=== PATIENT | female | born 1965 | race Caucasian/White ===

== ENCOUNTER 2019-09-22 22:00 | Emergency (ER) | payer BC, SELFPAY ==
[2019-09-22 22:25] VITALS: BP 133/73; PULSE 74; RESP 18; O2SAT 93; BMI 23.8
--- NOTE | 2019-09-22 22:33 | W.ED.GENADLT ---
HPI - General Adult General: Chief complaint: General Medical Stated complaint: nose bleed Time Seen by Provider: 09/22/19 22:22 History of Present Illness: HPI narrative: Patient's left naris bled x3 hours today. Nosebleed stopped about 30 minutes ago. Patient would like her INR checked. It was high the day before yesterday at 5.9 she stopped her dose of Coumadin yesterday and took it this morning which was a 4 mg dose. MD complaint: Has had problems with her INR since she was diagnosed with pneumonia 3 we Onset (ago): hour(s) (3) Severity: mild Severity scale (1-10): 1 Associated symptoms: Reports no associated symptoms; Deny chest pain, dyspnea, headache(s), nausea, rash or vomiting Treatments prior to arrival: none Review of Systems Const: Denies: fever, chills or body aches Eyes: Denies: change in vision or blurry vision ENMT: Reports: nose bleeds (3 hours today); Denies: throat pain or nasal congestion Card: Denies: chest pain or shortness of breath on exertion Resp: Denies: shortness of breath, productive cough or non-productive cough GI: Denies: abdominal pain, nausea or vomiting Musc: Denies: extremity pain Skin/Breast: Denies: rash Neuro: Denies: headache Psych: Denies: anxiety or depression Bakari/Lymph: Denies: easy bruising PFSH ED PFSH: Medical History (Updated 08/09/19 @ 11:13 by Felicitas Benjamin DO) CAD (coronary artery disease) Chronic migraine without aura, intractable, with status migrainosus Chronic right hip pain 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 COPD (chronic obstructive pulmonary disease) CANDIS (generalized anxiety disorder) GERD (gastroesophageal reflux disease) Hypothyroidism Idiopathic insomnia Lupus cerebritis Moderate mitral regurgitation Osteopenia Renal artery stenosis in 1 of 2 vessels Renovascular hypertension Thrombocytopenia Vitamin D deficiency Social History (Updated 08/03/19 @ 14:00 by Luly Wong LPN) Smoking and tobacco status: former smoker Alcohol intake: never Marital status: Physical Exam Const: COMMON NORMALS: no apparent distress HENMT: NOSE: no nasal discharge (Left nares normal without any active bleeding) Course Vital Signs: Vital signs: Vital Signs Pulse Rate 74 09/22/19 22:25 Respiratory Rate 18 09/22/19 22:25 Blood Pressure 133/73 09/22/19 22:25 Pulse Oximetry 93 09/22/19 22:25 Discharge Plan Discharge Prescriptions: No Action levothyroxine 112 mcg capsule 112 mcg PO ONCE RF: 0 metoprolol tartrate 25 mg tablet 25 mg PO BID RF: 0 albuterol sulfate [Ventolin HFA] 90 mcg/actuation HFA aerosol inhaler 2 puff INHALATION Q6H PRN (Reason: Shortness Of Breath) RF: 0 warfarin 2 mg tablet 2 mg PO DAILY Qty: 30 RF: 3 warfarin 3 mg tablet 3 mg PO DAILY Qty: 30 RF: 3 warfarin 2 mg tablet 2 mg PO DIRECTED Qty: 30 RF: 3 warfarin 3 mg tablet 3 mg PO DIRECTED Qty: 30 RF: 3 Coding Level of Care Code ED Sustainability Project Manager for Iban Salazar
[2019-09-22 22:42] LABS: Basophils # 0.1 10^3/uL (0.0-0.1); Basophils % 0.4 %; Eosinophils # 0.4 10^3/uL (0.0-0.8); Eosinophils % 2.8 %; Hematocrit 32.8 % (37.0-47.0); Hemoglobin 10.3 g/dL (11.5-15.3); Lymphocytes # 2.8 10^3/uL (0.8-4.8); Lymphocytes % 20.4 %; Mean Corpuscular HGB Conc 31.4 g/dL (30.0-36.0); Mean Corpuscular Hemoglobin 26.4 pg (28.0-34.0); Mean Corpuscular Volume 84.1 fL (81-99); Mean Platelet Volume 10.7 fL (7.4-10.4); Monocytes # 1.1 10^3/uL (0.2-0.9); Monocytes % 8.1 %; Neutrophils # 8.8 10^3/uL (1.8-7.7); Neutrophils % 64.6 %; Nucleated Red Blood Cells % 0 %; Platelet Count 338 10^3/cmm (130-400); Red Cell Distribution Width 17.5 % (12.1-15.1); White Blood Count 13.7 10^3/uL (4.0-10.0)
[2019-09-22 22:51] LABS: INR 3.31 (0.8-1.2)
[2019-09-22 22:58] LABS: Anion Gap 16.8 (5-19); Blood Urea Nitrogen 18 mg/dL (6-20); Calcium 9.7 mg/dL (8.5-10.5); Carbon Dioxide 26 mmol/L (22-29); Chloride 99 mmol/L (98-107); Glucose 95 mg/dL (65-115); Osmolality Calculated 282 mOsm/kg (285-295); Potassium 3.8 mmol/L (3.5-5.1); Sodium 138 mmol/L (136-145)
[2019-09-22 23:15] VITALS: BP 113/74; PULSE 67; RESP 17; O2SAT 96
== END 2019-09-22 23:16 | disposition home or self-care (01) ==
PROVIDERS: Emergency Provider Nurse Practitioner Family; Family Provider Family Medicine; PCP Family Medicine
DX: R04.0 Epistaxis (principal); I25.10 Atherosclerotic heart disease of native coronary artery without angina pectoris; J44.9 Chronic obstructive pulmonary disease, unspecified; E03.9 Hypothyroidism, unspecified; Z79.01 Long term (current) use of anticoagulants; Z87.891 Personal history of nicotine dependence
CPT/HCPCS: 80048; 85025; 85610; 99281; 99282

== ENCOUNTER → 2019-09-29 13:47 | Outpatient (BNVA) | payer BC, SELFPAY | PROVIDERS: Family Provider Family Medicine; PCP Family Medicine; Visit Provider Nurse Practitioner Family | DX: J90 Pleural effusion, not elsewhere classified (principal); J44.9 Chronic obstructive pulmonary disease, unspecified; R09.89 Other specified symptoms and signs involving the circulatory and respiratory systems; Z79.01 Long term (current) use of anticoagulants | CPT/HCPCS: 71046; 85610 ==

== ENCOUNTER → 2019-11-30 13:19 | Outpatient (BNVA) | payer BC, SELFPAY | PROVIDERS: Family Provider Family Medicine; PCP Family Medicine; Visit Provider Family Medicine | DX: E03.9 Hypothyroidism, unspecified (principal); Z95.2 Presence of prosthetic heart valve | CPT/HCPCS: 84443; 85610 ==

== ENCOUNTER → 2019-12-13 15:19 | Outpatient (BNVA) | payer BC, SELFPAY | PROVIDERS: Family Provider Family Medicine; PCP Family Medicine; Visit Provider Internal Medicine Cardiovascular Disease | DX: Z95.2 Presence of prosthetic heart valve (principal) | CPT/HCPCS: 85610 ==

== ENCOUNTER → 2020-02-26 13:34 | Outpatient (BNVA) | payer BC, SELFPAY | PROVIDERS: Family Provider Family Medicine; PCP Family Medicine; Visit Provider Internal Medicine Cardiovascular Disease | DX: Z95.2 Presence of prosthetic heart valve (principal); E03.9 Hypothyroidism, unspecified | CPT/HCPCS: 84443; 85610 ==

== ENCOUNTER → 2020-03-04 09:07 | Outpatient (BNVA) | payer BC, SELFPAY | PROVIDERS: Family Provider Family Medicine; PCP Family Medicine; Visit Provider Internal Medicine Cardiovascular Disease | DX: Z00.00 Encounter for general adult medical examination without abnormal findings (principal); Z79.01 Long term (current) use of anticoagulants; Z95.2 Presence of prosthetic heart valve | CPT/HCPCS: 85610 ==

== ENCOUNTER → 2020-03-25 10:20 | Outpatient (BNVA) | payer BC, SELFPAY | PROVIDERS: Family Provider Family Medicine; PCP Family Medicine; Visit Provider Internal Medicine Cardiovascular Disease | DX: Z95.2 Presence of prosthetic heart valve (principal) | CPT/HCPCS: 85610 ==

== ENCOUNTER → 2020-04-08 13:52 | Outpatient (BNVA) | payer BC, SELFPAY | PROVIDERS: Family Provider Family Medicine; PCP Family Medicine; Visit Provider Internal Medicine Cardiovascular Disease | DX: Z95.2 Presence of prosthetic heart valve (principal) | CPT/HCPCS: 85610 ==

== ENCOUNTER → 2020-04-29 11:02 | Outpatient (BNVA) | payer BC, SELFPAY | PROVIDERS: Family Provider Family Medicine; PCP Family Medicine; Visit Provider Internal Medicine Cardiovascular Disease | DX: Z95.2 Presence of prosthetic heart valve (principal) | CPT/HCPCS: 85610 ==

== ENCOUNTER → 2020-05-07 12:08 | Outpatient (BNVA) | payer BC, SELFPAY | PROVIDERS: Family Provider Family Medicine; PCP Family Medicine; Visit Provider Internal Medicine Cardiovascular Disease | DX: R79.1 Abnormal coagulation profile (principal); Z95.2 Presence of prosthetic heart valve | CPT/HCPCS: 85610 ==

== ENCOUNTER → 2020-05-14 10:55 | Outpatient (BNVA) | payer BC, SELFPAY | PROVIDERS: Family Provider Family Medicine; PCP Family Medicine; Visit Provider Internal Medicine | DX: M32.9 Systemic lupus erythematosus, unspecified (principal); Z11.59 Encounter for screening for other viral diseases; Z11.1 Encounter for screening for respiratory tuberculosis; M25.50 Pain in unspecified joint; R53.83 Other fatigue; F48.8 Other specified nonpsychotic mental disorders | CPT/HCPCS: 36415; 80053; 81001; 82306; 82533; 82550; 82728; 82955; 85025; 85651; 86140; 86431; 86480; 86704; 86803; 87340; 99203; 99213 ==

== ENCOUNTER → 2020-05-21 14:31 | Outpatient (BNVA) | payer BC, SELFPAY | PROVIDERS: Family Provider Family Medicine; PCP Family Medicine; Visit Provider Internal Medicine Cardiovascular Disease | DX: Z95.2 Presence of prosthetic heart valve (principal) | CPT/HCPCS: 85610 ==

== ENCOUNTER → 2020-05-29 11:12 | Outpatient (BNVA) | payer BC, SELFPAY | PROVIDERS: Family Provider Family Medicine; PCP Family Medicine; Visit Provider Internal Medicine Cardiovascular Disease | DX: E03.9 Hypothyroidism, unspecified (principal); Z95.2 Presence of prosthetic heart valve | CPT/HCPCS: 84443; 85610 ==

== ENCOUNTER 2020-06-19 11:29 | Outpatient (CLI) | payer BC, SELFPAY ==
--- NOTE | 2020-06-19 11:44 | XR_ITS ---
WS: [id number] AP views both hips, 06/19/2020 Clinical Data: M25.50 - Pain in unspecified joint Comparison: None. Findings: No erosion sclerosis narrowing or cyst formation of the hips is seen. There are no fractures or dislo cations. The soft tissues are normal. The adjacent pelvis is unremarkable. XR/XR hip BI 2V wo/w pel [id number] Impression: Negative AP views of both hips.
== END 2020-06-19 11:30 | disposition home or self-care (01) ==
PROVIDERS: PCP Family Medicine; Visit Provider Internal Medicine
DX: M32.9 Systemic lupus erythematosus, unspecified; D86.9 Sarcoidosis, unspecified; M25.551 Pain in right hip; M25.552 Pain in left hip; R53.83 Other fatigue; Z79.899 Other long term (current) drug therapy; Z87.891 Personal history of nicotine dependence
CPT/HCPCS: 73521; 99213

== ENCOUNTER → 2020-08-20 13:23 | Outpatient (BNVA) | payer OTHER, SELFPAY | PROVIDERS: PCP Family Medicine; Visit Provider Internal Medicine Cardiovascular Disease | DX: Z95.2 Presence of prosthetic heart valve (principal) | CPT/HCPCS: 85610 ==

== ENCOUNTER 2020-10-02 12:53 | Outpatient (CLI) | payer OTHER, SELFPAY ==
--- NOTE | 2020-10-02 13:30 | US_ITS ---
WS: [id number] INDICATION: Ultrasound right groin. Hernia. TECHNIQUE: Ultrasound soft tissue area of concern. FINDINGS: Ultrasound soft tissue area of concern right groin. No visualized inguinal or femoral herni a visualized. No herniated bowel. A few prominent lymph nodes with preserved fatty hilum measuring up to 2 cm nonspecific but likely reactive. US/US soft tissue/extremity 95691 IMPRESSION: No evidence of femoral or inguinal hernia.
== END 2020-10-02 12:54 | disposition home or self-care (01) ==
LOC: US 12:56
PROVIDERS: PCP Family Medicine; Visit Provider Family Medicine
DX: K41.90 Unilateral femoral hernia, without obstruction or gangrene, not specified as recurrent (principal)
CPT/HCPCS: 76882

== ENCOUNTER → 2020-10-10 13:48 | Outpatient (BNVA) | payer OTHER, SELFPAY | PROVIDERS: PCP Family Medicine; Visit Provider Internal Medicine | DX: M32.9 Systemic lupus erythematosus, unspecified (principal); M25.50 Pain in unspecified joint; R53.83 Other fatigue; F48.8 Other specified nonpsychotic mental disorders; G47.00 Insomnia, unspecified; Z87.891 Personal history of nicotine dependence | CPT/HCPCS: 99214 ==

== ENCOUNTER 2020-10-14 12:35 | Outpatient (CLI) | payer OTHER, SELFPAY ==
[2020-10-14 13:10] LABS: Basophils # 0.1 10^3/uL (0.0-0.1); Basophils % 0.6 %; Eosinophils # 0.2 10^3/uL (0.0-0.8); Eosinophils % 2.7 %; Hematocrit 40.7 % (37.0-47.0); Hemoglobin 12.6 g/dL (11.5-15.3); Lymphocytes # 2.2 10^3/uL (0.8-4.8); Lymphocytes % 25.6 %; Mean Corpuscular Hemoglobin 27.3 pg (28.0-34.0); Mean Corpuscular Volume 88.3 fL (81-99); Mean Platelet Volume 10.2 fL (7.4-10.4); Monocytes # 0.6 10^3/uL (0.2-0.9); Monocytes % 6.5 %; Neutrophils # 5.45 10^3/uL (1.8-7.7); Neutrophils % 64.1 %; Nucleated Red Blood Cells % 0 %; Platelet Count 279 10^3/cmm (130-400); Red Blood Count 4.61 10^6/uL (4.1-5.3); Red Cell Distribution Width 16.2 % (12.1-15.1); White Blood Count 8.5 10^3/uL (4.0-10.0)
[2020-10-14 13:27] LABS: Alanine Aminotransferase 20 U/L (0-33); Albumin Level 3.8 g/dL (3.5-5.2); Alkaline Phosphatase 161 IU/L (35-105); Anion Gap 13.6 (5-19); Aspartate Amino Transferase 24 U/L (0-32); Blood Urea Nitrogen 16 mg/dL (6-20); C Reactive Protein 29.8 mg/L (0.0-4.9); Calcium 9.5 mg/dL (8.5-10.5); Carbon Dioxide 27 mmol/L (22-29); Chloride 103 mmol/L (98-107); Complement C3 178 mg/dL (90-180); Globulin 3.2 g/dL (1.3-4.6); Glucose 84 mg/dL (65-115); Osmolality Calculated 288 mOsm/kg (285-295); Potassium 4.6 mmol/L (3.5-5.1); Sodium 139 mmol/L (136-145); Total Bilirubin 0.2 mg/dL (0.15-1.2)
[2020-10-14 13:46] LABS: Urine Color Yellow (Yellow)
[2020-10-14 13:47] LABS: Add Urine Microscopic? YES; Bilirubin Urine Neg (Negative); Blood Urine Neg (Negative); Glucose Urine UA Norm (Normal); Ketones Urine Negative (Negative); Leukocyte Esterase Urine Trace (Negative); Nitrate Urine Negative (Negative); Protein Urine Neg (Negative); Urine Appearance Clear (CLEAR); Urobilinogen Urine Norm (Negative); pH Urine 5 (5-7)
[2020-10-14 13:48] LABS: Bacteria Urine 1+ /hpf; RBC Urine 0-4 /hpf (0-2); WBC Urine 15-25 /hpf (0-5)
[2020-10-14 13:49] LABS: Add Urine Culture? No
[2020-10-14 14:08] LABS: Erythrocyte Sedimentation Rate 37 mm/hr (0-15)
== END 2020-10-14 12:36 | disposition home or self-care (01) ==
PROVIDERS: PCP Family Medicine; Visit Provider Internal Medicine
DX: M32.9 Systemic lupus erythematosus, unspecified (principal)
CPT/HCPCS: 36415; 80053; 81001; 85025; 85651; 86140; 86160

== ENCOUNTER → 2020-10-16 13:36 | Outpatient (BNVA) | payer OTHER, SELFPAY | PROVIDERS: PCP Family Medicine; Visit Provider Family Medicine | DX: Z95.2 Presence of prosthetic heart valve (principal) | CPT/HCPCS: 85610 ==

== ENCOUNTER → 2020-10-21 14:14 | Outpatient (BNVA) | payer OTHER, SELFPAY | PROVIDERS: PCP Family Medicine; Visit Provider Family Medicine | DX: E03.9 Hypothyroidism, unspecified (principal); R59.9 Enlarged lymph nodes, unspecified; I10 Essential (primary) hypertension; Z95.2 Presence of prosthetic heart valve | CPT/HCPCS: 84443; 85610 ==

== ENCOUNTER → 2020-11-06 16:34 | Outpatient (BNVA) | payer SELFPAY | PROVIDERS: PCP Family Medicine; Visit Provider Internal Medicine Cardiovascular Disease | DX: Z95.2 Presence of prosthetic heart valve (principal) | CPT/HCPCS: 85610 ==

== ENCOUNTER 2020-11-20 10:05 | Outpatient (CLI) | payer OTHER, SELFPAY ==
--- NOTE | 2020-11-20 10:08 | MR_ITS ---
WS: [id number] MRI PELVIS WITHOUT CONTRAST. COMPARISON: CT 05/08/2015. History: RIGHT lower quadrant pain. Multiplanar, multisequence imaging is performed without contrast. No GI tract obstruction or inguinal canal hernia. Uterus is normal size. Both ovaries are identified and normal size. There is no free fluid in the pelvis. Nerve root sleeve diverticulum are identified in the sacrum. Largest extends into the RIGHT as to 3 foramen. Abnormal signal involving the RIGHT femoral head and neck. There is extensive marrow edema in the fem oral head and neck and changes of osteonecrosis without fragmentation. There is a moderate-sized join t effusion and there is also small amount of edema in the adjacent acetabulum. Focal area of avascular necrosis involving the superior LEFT femoral head. No joint effusion. No disl ocation. Less edema and no joint effusion on the LEFT. MR/MR pelvis wo con* [id number] IMPRESSION: 1. Bilateral femoral head osteonecrosis. 2. Significant marrow edema involving the RIGHT femoral head and neck with a m oderate-sized surrounding joint effusion. Marrow edema typically correlates wit h pain and risk of bone collapse. 3. No inguinal hernia. 4. Focal osteonecrosis at the LEFT femoral head with focal marrow edema and no joint effusion. 5. Septic RIGHT hip joint is not excluded but effusions are often seen with os teonecrosis.
== END 2020-11-20 10:06 | disposition home or self-care (01) ==
LOC: RADSHAW 10:06
PROVIDERS: PCP Family Medicine; Visit Provider Surgery
DX: R10.31 Right lower quadrant pain (principal); M87.88 Other osteonecrosis, other site; R60.0 Localized edema
CPT/HCPCS: 72195; 85610

== ENCOUNTER → 2020-12-02 12:07 | Outpatient (BNVA) | payer OTHER, SELFPAY | PROVIDERS: PCP Family Medicine; Referring Provider Surgery; Visit Provider Orthopaedic Surgery | DX: M87.059 Idiopathic aseptic necrosis of unspecified femur (principal) | CPT/HCPCS: 73502 ==

== ENCOUNTER → 2020-12-06 11:35 | Outpatient (BNVA) | payer OTHER, SELFPAY | PROVIDERS: PCP Family Medicine; Visit Provider Orthopaedic Surgery | DX: Z01.812 Encounter for preprocedural laboratory examination (principal); Z20.822 Contact with and (suspected) exposure to COVID-19 | CPT/HCPCS: 87635 ==

== ENCOUNTER 2020-12-12 05:49 | Day surgery (SDC) | payer OTHER, SELFPAY ==
[2020-12-12] VITALS (10 sets, daily range): BP systolic 132–174; BP diastolic 48–94; PULSE 56–64; RESP 12–18; TEMP 36.3–37.3; O2SAT 94–100; BMI 28.3
--- NOTE | 2020-12-12 | SCC_ITS ---
Procedure Done: Core decompression right hip. (Bill procedure as equivalent to percutaneous screw fixation of a femoral neck fracture.) 87.5 seconds of fluoroscopic guidance, for a cumulative dose of 12.33 mGy, was provided to Dr. Garcias by the radiology department. C-arm images of the RIGHT hip were saved for the patient's permanent record. [facility]
[2020-12-12] MEDS: sodium chloride 0.9% 1,000 ML 30 ML IV ×2 (06:20→06:28)
--- NOTE | 2020-12-12 06:30 | P.ANESASSM_ITS ---
Pre-Anesthetic Assessment Pre-Anesthetic Assessment: Height/Weight: Height 1.6 m Weight 72.575 kg Temp Pulse Resp BP Pulse Ox 97.4 F L 64 18 168/94 94 12/12/20 06:12 12/12/20 06:12 12/12/20 06:12 12/12/20 06:12 12/12/20 06:12 Preop Diagnosis: Avascular necrosis right hip Proposed Procedure: Operation Date: 12/12/20 07:00 Proposed Procedures p Core Decompression Hip 91074 M87.059(Right) - Ellis Garcias MD Was Beta Ana Lilia taken within 24 hours: Yes Was Clonidine taken within 24 hours: N/A Last intake: Intake Last Liquid Date 12/11/20 Last Liquid Time 19:00 Last Solid Date 12/11/20 Last Solid Time 19:00 Social: Social History: Tobacco (quit 07/28) and No alcohol Exam: Pre-Anes Outpt Exam: alert, oriented x 3 and regular rate & rhythm Additional Exam Findings (including area of procedure): rhonci Airway: Submandibular: WNL Cervical ROM: WNL MP: 2 Dentition: False Pulmonary: Pulmonary: COPD CV/HEM: CV/HEM: CAD and HTN Comments: Ao valve replaced Metabolic: Metabolic: Thyroid Neuropsych: Neuropsych: Anxiety Anesthetic Plan: ASA status: 3 Anesthesia: Choice Risk of > 500 ml blood loss (7ml/kg in children): No PFSH Anesthesia PFSH: Medical History CAD (coronary artery disease) Chronic migraine without aura, intractable, with status migrainosus Chronic right hip pain 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 COPD (chronic obstructive pulmonary disease) CANDIS (generalized anxiety disorder) GERD (gastroesophageal reflux disease) Hypertension Hypothyroidism Idiopathic insomnia Lupus cerebritis Moderate mitral regurgitation Osteopenia Renal artery stenosis in 1 of 2 vessels Renovascular hypertension Thrombocytopenia Vitamin D deficiency Surgical History History of bone marrow biopsy S/P aortic valve replacement S/P cataract extraction S/P thyroidectomy S/P tonsillectomy Status post biopsy of kidney Social History Smoking and tobacco status: former smoker Quit status (tobacco): has quit using tobacco Former quit date comment: PPD x 30 yrs; quit 12/2019 Second hand smoke exposure: Yes Alcohol intake: never Lives independently: Yes Household members: spouse Marital status: Current occupational status: employed Current occupation: [employer] History of recent travel: No Current gender identity: Female Data Anesthesia Cardiac Studies: No Data to Display
[2020-12-12] MEDS: midazolam 1 mg/mL INJ 2 mL 2 MG IVP (07:00)
--- NOTE | 2020-12-12 07:01 | W.PM.OPSUD ---
Surgery/Procedure H&P Update DATE OF PROCEDURE: December 12, 2020 DATE H&P PERFORMED: 12/02/20 PREOP DIAGNOSIS: Avascular necrosis right hip PLANNED PROCEDURE: Operation Date: 12/12/20 07:00 Proposed Procedures p Core Decompression Hip 91140 M87.059(Right) - Ellis Garcias MD
--- NOTE | 2020-12-12 07:51 | XR_ITS ---
WS: [id number] Right hip, C-arm fluoroscopy views, 12/12/2020 Clinical Data: OR PICS Comparison: Right hip, 12/02/2020, MR pelvis, 11/20/2020. Findings: An orthopedic guide and a screw have been placed into the right femoral neck with the tip ending at t he right femoral head. XR/XR hip RT 2-3V wo/w pel* [id number] Impression: Insertion of orthopedic screw into the right femoral neck.
--- NOTE | 2020-12-12 07:55 | P.OP_ITS ---
Operative Report Date of procedure: December 12, 2020 Pre-op Diagnosis: Avascular necrosis right hip Post-op diagnosis: same Post-op Findings: Same Procedure Done: Core decompression right hip. (Bill procedure as equivalent to percutaneous screw fixation of a femoral neck fracture.) Pathology: none sent Surgeon: Ellis Garcias Anesthesia: General Estimated blood loss (mL): 10 Findings: No collapse of the femoral head was identified on intraoperative im aging Condition: stable Disposition: PACU Brief History: The patient is a 55-year-old female with insidious onset and increasing right hip pain since May of last year. She had a history of steroid use in treating her lupus. An MRI revealed avascular necrosis of the right greater than the left hip. Core decompression was chosen to improve pain and function Procedure: . Room and given a general anesthesia. She was given 2 g of Ancef. She is prepped and draped in the supine position on the fracture table with her right lower extremity exposed. A timeout was performed. Initially a small stab wound was made over the lateral thigh. A guidepin was driven up into the lateral femoral shaft just above the level of the lesser trochanter and the cannulated drill bit from the Asnis screw set used to perforate the lateral cortex. K wire was then driven up initially in to the anterior superior femoral head just above the level of the fovea. The cannulated reamer was passed over the guidepin to the level of subchondral bone. The K wire was then driven up into the central femoral head just above the level of the fovea and the cannulated reamer again passed. The guidepin was finally directed in a superior and anterior lateral position far superior as the neck and over that the cannulated reamer was passed. Position of tunnels was marked with K wires for the 2 lower tunnels and the reamer for the most superior tunnel with C arm. Deja p tissues were closed with 2-0 Vicryl. The skin was closed with 3-0 Prolene.
[2020-12-12] MEDS: fentaNYL 50 mcg/mL INJ 2mL IVP (08:03)
--- NOTE | 2020-12-12 08:15 | SUR.PHASEI ---
PT ON RA TRIAL GOOD RESP NOTED PT STATES PAIN IS BETTER,PT SLEEPS IF NOT DISTURBED SEE EARLIER PAIN MEDS GIVEN. PT AWAKES EASILY AND IS OK WITH CONTINUING PO PAIN MEDS IN OPS.
[2020-12-12] MEDS: HYDROcodone-acetaminophen 5-325 mg Tablet 1 TAB PO (08:46)
--- NOTE | 2020-12-12 12:33 | ANE.PACU2 ---
Inpatient post-anesthesia follow up: Airway intact: Yes Vital signs: Temperature 97.4 F Pulse Rate 56 Respiratory Rate 18 Blood Pressure 159/66 Pulse Oximetry 100 Oxygen Delivery Me thod Room Air Oxygen Flow Rate 8 Fraction of Inspir ed Oxygen Hydration adequate: Yes Nausea and vomiting: No Pain level: 2 Mental status: Baseline
== END 2020-12-12 09:42 | disposition home or self-care (01) ==
PROVIDERS: PCP Family Medicine; Visit Provider Orthopaedic Surgery
PROC: (CPT 27299; principal; 2020-12-12 07:00)
DX: M87.051 Idiopathic aseptic necrosis of right femur (principal); I25.10 Atherosclerotic heart disease of native coronary artery without angina pectoris; J44.9 Chronic obstructive pulmonary disease, unspecified; I10 Essential (primary) hypertension; F41.9 Anxiety disorder, unspecified; E03.9 Hypothyroidism, unspecified; M81.0 Age-related osteoporosis without current pathological fracture; E55.9 Vitamin D deficiency, unspecified; Z87.891 Personal history of nicotine dependence
CPT/HCPCS: 27235; 73502; 76000; 96365; J0690; J2250; J2370; J2405; J2704; J3010; J7030

== ENCOUNTER → 2020-12-18 13:45 | Outpatient (BNVA) | payer OTHER, SELFPAY | PROVIDERS: PCP Family Medicine; Visit Provider Internal Medicine Cardiovascular Disease | DX: Z95.2 Presence of prosthetic heart valve (principal) | CPT/HCPCS: 85610 ==

== ENCOUNTER → 2021-01-22 13:22 | Outpatient (BNVA) | payer OTHER, SELFPAY | PROVIDERS: PCP Family Medicine; Visit Provider Nurse Practitioner Women's Health | DX: Z01.419 Encounter for gynecological examination (general) (routine) without abnormal findings (principal); Z12.39 Encounter for other screening for malignant neoplasm of breast | CPT/HCPCS: 88175 ==

== ENCOUNTER → 2021-02-05 11:01 | Outpatient (BNVA) | payer OTHER, SELFPAY | PROVIDERS: PCP Family Medicine; Visit Provider Orthopaedic Surgery | DX: M87.051 Idiopathic aseptic necrosis of right femur (principal); Z01.812 Encounter for preprocedural laboratory examination; Z20.822 Contact with and (suspected) exposure to COVID-19 | CPT/HCPCS: 73502 ==

== ENCOUNTER → 2021-02-07 13:27 | Outpatient (BNVA) | payer OTHER, SELFPAY | PROVIDERS: PCP Family Medicine; Visit Provider Internal Medicine Cardiovascular Disease | DX: Z95.2 Presence of prosthetic heart valve (principal); Z79.01 Long term (current) use of anticoagulants | CPT/HCPCS: 85610 ==

== ENCOUNTER → 2021-02-14 13:11 | Day surgery (SDC) | payer OTHER, SELFPAY | PROVIDERS: PCP Family Medicine; Visit Provider Orthopaedic Surgery | DX: Z01.818 Encounter for other preprocedural examination (principal) | CPT/HCPCS: 93005 ==

== ENCOUNTER → 2021-02-14 14:12 | Outpatient (BNVA) | payer OTHER, SELFPAY | PROVIDERS: PCP Family Medicine; Visit Provider Orthopaedic Surgery | DX: Z01.812 Encounter for preprocedural laboratory examination (principal); Z20.822 Contact with and (suspected) exposure to COVID-19 | CPT/HCPCS: 87635 ==

== ENCOUNTER 2021-02-20 09:26 | Observation (INO) | payer OTHER, SELFPAY ==
[2021-02-14 13:06] VITALS: BMI 28.3
--- NOTE | 2021-02-14 13:11 | ECG_ITS ---
[facility] Test Date: 2021-02-14 Pat Name: Danielle Nix Department: Room: Gender: Female Stave Grader: : 1965 Requested By: Tg Cyr Order Number: [id number] Reading MD: NEGRO VALERO Measurements Intervals [place] Rate: 61 P: 40 OR: 173 QRS: 40 QRSD: 102 T: 39 QT: 391 QTc: 396 Interpretive Statements SINUS RHYTHM POSSIBLE LEFT VENTRICULAR HYPERTROPHY [VOLTAGE CRITERIA PLUS LAE OR QRS WIDENING] Compared to ECG 10/25/2018 15:34:25 Short OR interval no longer present Electronically Signed On 02-14-2021 14:28:48 CDT by NEGRO VALERO [email or web address]/store/OM/[id number]
--- NOTE | 2021-02-14 13:34 | P.ANESASSM_ITS ---
Pre-Anesthetic Assessment Pre-Anesthetic Assessment: Height/Weight: Height 1.6 m Weight 72.575 kg Preop Diagnosis: Avascular necrosis right hip Proposed Procedure: Operation Date: 02/20/21 10:50 Proposed Procedures p right Total Hip Arthroplasty 28917 m87.051(Right) - Ellis Garcias MD Familial anesthetic complications: NOne Social: Social History: No alcohol and No tobacco Comment: former smoker Exam: Pre-Anes Outpt Exam: alert, oriented x 3, clear to auscultation bilaterally and regular rate & rhythm Airway: Cervical ROM: WNL MP: 2 Dentition: False Pulmonary: Pulmonary: COPD CV/HEM: CV/HEM: Arrythmia (tachycardia), CHF and HTN Comments: aortic valve replaced d/t rheumatic fever 10/2018 (mechanical) in blood thinners. Mod Mitral valve regurge - no symptoms Moderate obstructive ventilatory defect on PFT. Significant bronchodilator response. Normal lung volumes and severely reduced diffusion capacity Cardiac cath (08/16/2018): Normal LAD, LCX, RCA. 40% lesion in LM. Normal right atrial, right ventricular, PA and wedge pressure. 3-4+ AI. Echo (09/11/19): Normal LV size with mildly increased LV wall thickness. Low normal LV function. LVEF=50-55%. Mild bitrial enlargement and moderate mitral regurgitation. Metabolic: Comments: ? 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 Nelson Osteopenia Renal artery stenosis in 1 of 2 vessels Renovascular hypertension Thrombocytopenia Vitamin D deficiency Surgical History History of bone marrow biopsy S/P aortic valve replacement (~2018) [place] S/P cataract extraction S/P thyroidectomy S/P tonsillectomy Status post biopsy of kidney benign Status post hip surgery (~12/2020) Family History Mother Thyroid disease Sister Thyroid disease x2 Grandmother Thyroid disease Maternal Aunt Family/Other Thyroid disease Maternal Aunt Denies family history of Colon cancer Ovarian cancer Diabetes Heart disease Hypercholesteremia Breast cancer Hypertension Uterine cancer Stroke Social History Smoking and tobacco status: current every day smoker cigarettes Second hand smoke exposure: Yes Alcohol intake: never Lives independently: Yes Marital status: Current occupation: [employer] History of recent travel: No Data Anesthesia Cardiac Studies: No Data to Display
[2021-02-14 13:47] LABS: Basophils % 0.4 %; Eosinophils # 0.1 10^3/uL (0.0-0.8); Eosinophils % 1.2 %; Hematocrit 40.7 % (37.0-47.0); Hemoglobin 12.3 g/dL (11.5-15.3); Lymphocytes # 2.4 10^3/uL (0.8-4.8); Mean Corpuscular HGB Conc 30.2 g/dL (30.0-36.0); Mean Corpuscular Hemoglobin 25.4 pg (28.0-34.0); Mean Corpuscular Volume 84.1 fL (81-99); Mean Platelet Volume 10.7 fL (7.4-10.4); Monocytes # 0.7 10^3/uL (0.2-0.9); Monocytes % 6.9 %; Neutrophils # 6.69 10^3/uL (1.8-7.7); Neutrophils % 67.2 %; Nucleated Red Blood Cells % 0 %; Platelet Count 265 10^3/cmm (130-400); Red Blood Count 4.84 10^6/uL (4.1-5.3); Red Cell Distribution Width 16.1 % (12.1-15.1)
[2021-02-14 13:56] LABS: INR 2.43 (0.8-1.2)
[2021-02-14 14:03] LABS: Partial Thromboplastin Time 67.6 SECONDS (23.9-36.7)
[2021-02-20] VITALS (24 sets, daily range): BP systolic 91–151; BP diastolic 50–87; PULSE 59–75; RESP 14–20; TEMP 35.7–37.1; O2SAT 95–100
[2021-02-20] MEDS: acetaminophen 500 mg Tablet 1000 MG PO ×2 (06:29→17:52)
[2021-02-20] MEDS: oxyCODONE 20 mg ER (12 HR) Tablet PO (06:29)
[2021-02-20] MEDS: gabapentin 300 mg Capsule PO ×2 (06:29→17:52)
[2021-02-20] MEDS: sodium chloride 0.9% 1,000 ML 30 ML IV (06:30)
--- NOTE | 2021-02-20 06:54 | W.PM.OPSUD ---
Surgery/Procedure H&P Update DATE OF PROCEDURE: February 20, 2021 DATE H&P PERFORMED: 02/05/21 PREOP DIAGNOSIS: Avascular necrosis right hip PLANNED PROCEDURE: Operation Date: 02/20/21 07:00 Proposed Procedures p right Total Hip Arthroplasty 37464 m87.051(Right) - Ellis Garcias MD
[2021-02-20] MEDS: CELEcoxib 200 mg Capsule 400 MG PO (06:55)
--- NOTE | 2021-02-20 07:02 | P.ANESUD_ITS ---
Pre-Anesthetic Update Pre-Anesthetic Assessment: Date of Surgery/Procedure: 02/20/21 Preop Kassandra gnosis: Avascular necrosis right hip Proposed Procedure: Operation Date: 02/20/21 07:00 Proposed Procedures p right Total Hip Arthroplasty 57950 m87.051(Right) - Ellis Garcias MD Any changes to Pre-Anesthetic Assessment?: No Last Intake: Intake Last Liquid Date 02/19/21 Last Liquid Time 23:00 Last Solid Date 02/19/21 Last Solid Time 23:00 Vitals: Temperature 97.1 F L 02/20/21 06:12 Pulse Rate 69 02/20/21 06:12 Respiratory Rate 18 02/20/21 06:29 Respiratory Effort 02/20/21 06:29 Respiratory Depth Normal 02/20/21 06:29 Respiratory Patter n 02/20/21 06:29 Blood Pressure 151/85 02/20/21 06:12 Blood Pressure Aracely n 107 02/20/21 06:12 Pulse Oximetry 97 02/20/21 06:29 Oxygen Delivery Me thod 02/20/21 06:22 Exam: Pre-Anes Outpt Exam: alert, oriented x 3, clear to auscultation bilaterally and regular rate & rhythm Cardiac Studies: No Data to Display
[2021-02-20] MEDS: tranexamic acid 1,000 mg/10mL SDV 1000 MG IRRIGATION (07:51)
--- NOTE | 2021-02-20 09:22 | XR_ITS ---
WS: [id number] Right hip, AP view, 02/20/2021 Clinical Data: postop Right total hip arthroplasty Comparison: Pelvis and right hip, 02/05/2021. Findings: The right hip arthroplasty is in good position. The femoral medullary portion is within the femoral m edullary canal. No loosening is seen. XR/XR hip RT 1V wo/w pel [id number] Impression: Right hip arthroplasty.
--- NOTE | 2021-02-20 09:23 | P.OP_ITS ---
Operative Report Date of procedure: February 20, 2021 Pre-op Diagnosis: Avascular necrosis right hip Post-op diagnosis: same Post-op Findings: As above Procedure Done: Right total hip arthroplasty Pathology: other Pathology: Femoral head was sent for pathology Anesthesia: Nerve Block (Spinal) Estimated blood loss (mL): 350 Complications: None Condition: stable Disposition: PACU Brief History: The patient is a 56-year-old female with avascular necrosis of the right hip diagnosed on MRI. She underwent previous core decompression with severe limiting pain and elected total hip arthroplasty to improve pain and function Procedure: The patient was taken to the operating room and anesthesia provided by the anesthesia service. The patient was placed in the lateral position on a beanbag. A timeout was performed. The patient was draped in the usual fashion. A 15 cm long incision was made beginning just proximal to the greater trochanter and extending posteriorly to a point just distal to the trochanter on the posterior border of the trochanter. Dissection was carried down with electrocautery through the subcutaneous fat to the fascia shannon which was divided proximally and distally with curved scissors. The anterior two thirds of the gluteus medius and minimus were elevated off the hip with electrocautery. The capsule was divided in a H-like fashion. The hip was dislocated and a neck cut made just above the level of the lesser trochanter. Exposure of the acetabulum was facilitated with the acetabular retractors. Remnants of labrum and peripheral osteophytes were removed with electrocautery and a rongeur. A reamer 2 mm under the size the femoral head was utilized to ream medially to the base of the palm and are. Reaming was then increased in 1 mm intervals until a healthy rim a trabecular bone was encountered. A trial ADM cup was placed and its position marked with electrocautery In the acetabulum. A final was press-fit into place. Attention was then focused on the femur. Sequential reaming was done under power until cortical chatter was encountered. Broaching was then accomplished until a stable broach size was obtained. A trial reduction with the head and neck provided excellent stability. The wound was irrigated with saline and anti biotic solution. The final Susana SecureFit Max stem was press-fit into place. The femoral head was placed and the hip was reduced. The hip was brought through range of motion and found to be free of impingement and stable. The anterior capsule was reapproximated with 1 Ethibond. The gluteus medius and minimus were repaired through bone with 5 Ethibond and reinforced with 1 Ethibond. The fascial shannon was closed with a running 0 Stratafix suture. Deep pelvic tissues were closed with 2-0 Stratafix and the skin with a running 4-0 l Stratafix. 1) [place] 48 mm ADM acetabular shell 2) Size 6 [place] 132 degree neck angle SecureFit Max stem 3} 28 mm standard femoral head 4} Restorationa ADM X3 insert
[2021-02-20] MEDS: fentaNYL 50 mcg/mL INJ 2mL IVP (09:32)
--- NOTE | 2021-02-20 09:44 | SUR.PHASEI ---
PT TO PACU AWAKE ALERT SPINAL ANESTHESIA LEVEL AT T-12 PER PT STATEMENT OF NORMAL SENSATION TO THAT LEVEL, PT UNABLE TO MOVE FEET, BUT C/O OF PAIN TO RT HIP PT GRIMICING, DRESSING D/I FIRST ICE TO SITE WARM BLANKETS TO PT X 4 VSS. X RAY DONE AND PT TOLERATED WELL SEE EARLIER, PAIN MED GIVEN, PT DENIES NAUSEA, VSS.
--- NOTE | 2021-02-20 10:16 | PC.NURSE ---
I reported the low bp to the nurse
[2021-02-20] MEDS: CELEcoxib 200 mg Capsule PO ×2 (11:07→20:52)
[2021-02-20] MEDS: oxyCODONE 5 mg IR Tab/Cap PO (11:07)
[2021-02-20] MEDS: ondansetron 2 mg/ML SDV 2 mL 4 MG IVP (11:07)
[2021-02-20] MEDS: sodium chloride 0.9% 1,000 ML 100 ML IV (11:08)
[2021-02-20] MEDS: morphine 4 mg/mL SDV 1 mL 2 MG IVP (14:20)
[2021-02-20] MEDS: warfarin 4 mg Tablet PO (14:29)
--- NOTE | 2021-02-20 16:23 | ANE.PACU2 ---
Inpatient post-anesthesia follow up: Airway intact: Yes Vital signs: Temperature 97.4 F Pulse Rate 67 Respiratory Rate 17 Blood Pressure 120/66 Pulse Oximetry 99 Oxygen Delivery Me thod Room Air Oxygen Flow Rate Fraction of Inspir ed Oxygen Hydration adequate: Yes Nausea and vomiting: No Pain level: 2 Mental status: Baseline
[2021-02-20] MEDS: sennosides-docusate Tablet 2 TAB PO (17:52)
[2021-02-20] MEDS: metoprolol tartrate 25 mg Tablet 37.5 MG PO (17:52)
[2021-02-20] MEDS: mupirocin oint 22 gm 1 APPLIC TOPICAL (17:53)
[2021-02-20] MEDS: oxyCODONE 5 mg IR Tab/Cap 10 MG PO ×2 (17:53→21:34)
[2021-02-21] VITALS (9 sets, daily range): BP systolic 95–114; BP diastolic 58–67; PULSE 69–72; RESP 17–18; TEMP 36.7–36.9; O2SAT 90–97
[2021-02-21] MEDS: acetaminophen 500 mg Tablet 1000 MG PO ×2 (00:27→10:16)
[2021-02-21] MEDS: sodium chloride 0.9% 1,000 ML 100 ML IV (01:27)
[2021-02-21] MEDS: oxyCODONE 5 mg IR Tab/Cap 10 MG PO ×3 (01:31→14:38)
--- NOTE | 2021-02-21 04:23 | PC.NURSE ---
END OF SHIFT SUMMARY PT HAS RESTED THROUGHOUT SHIFT WITH VSS - OXY IR HAS CONTROLLED PAIN EFFECTIVELY - BLOOD PRESSURE HAS RAN SLIGHTLY LOW - PT IS ASYMPTOMATIC - 1ST ICE REMAINS IN PLACE TO RIGHT HIP WITH DRESSING NOTED TO HAVE X2 AREAS OF SMALL DRAINAGE - IV PATENT VIA PUMP - PT HAS AMBULATED TO BATHROOM WITH WALKER WITHOUT DIFFICULTY -
--- NOTE | 2021-02-21 05:57 | PC.NURSE ---
OXYGEN PT PLACED ON 02 2LNC DUE TO SATS RANGING FROM 84-89% ON ROOM AIR - WILL MONITOR
[2021-02-21 06:48] LABS: Hemoglobin 9.1 g/dL (11.5-15.3)
[2021-02-21] MEDS: buPROPion XL (24 HR) 300 mg Tablet PO (09:02)
[2021-02-21] MEDS: gabapentin 300 mg Capsule PO (09:02)
[2021-02-21] MEDS: levothyroxine 88 mcg Tablet PO (09:02)
[2021-02-21] MEDS: sennosides-docusate Tablet 2 TAB PO (09:03)
[2021-02-21] MEDS: mupirocin oint 22 gm 1 APPLIC TOPICAL (09:03)
[2021-02-21] MEDS: CELEcoxib 200 mg Capsule PO (10:16)
[2021-02-21] MEDS: ondansetron 2 mg/ML SDV 2 mL 4 MG IVP (10:18)
[2021-02-21] MEDS: warfarin 4 mg Tablet PO (14:39)
--- NOTE | 2021-02-24 18:59 | PC.RESP ---
PULMONARY REHAB INFORMATION SENT TO PATIENT.
== END 2021-02-21 17:30 | disposition home or self-care (01) ==
LOC: MEDSURG 09:27
PROVIDERS: Anesthesiology; Admitting Provider Orthopaedic Surgery; PCP Family Medicine; Visit Provider Orthopaedic Surgery
PROC: (CPT 27130; principal; 2021-02-20 07:00)
DX: M87.9 Osteonecrosis, unspecified (principal); J44.9 Chronic obstructive pulmonary disease, unspecified; I11.0 Hypertensive heart disease with heart failure; I50.9 Heart failure, unspecified; I25.10 Atherosclerotic heart disease of native coronary artery without angina pectoris; I10 Essential (primary) hypertension; E03.9 Hypothyroidism, unspecified; F17.210 Nicotine dependence, cigarettes, uncomplicated; Z79.01 Long term (current) use of anticoagulants
CPT/HCPCS: 27130; 36415; 73501; 85018; 85025; 85610; 85730; 88305; 88311; 97161; 97165; 97530; C1776; G0378; J0690; J1580; J2250; J2270; J2405; J2704; J3010; J3490; J7030

== ENCOUNTER → 2021-03-18 13:19 | Outpatient (BNVA) | payer OTHER, SELFPAY | PROVIDERS: PCP Family Medicine; Visit Provider Orthopaedic Surgery | DX: Z48.89 Encounter for other specified surgical aftercare (principal) | CPT/HCPCS: 73502 ==

== ENCOUNTER → 2021-04-23 11:46 | Outpatient (BNVA) | payer OTHER, SELFPAY | PROVIDERS: PCP Family Medicine; Visit Provider Family Medicine | DX: Z95.2 Presence of prosthetic heart valve (principal) | CPT/HCPCS: 85610 ==

== ENCOUNTER → 2021-05-07 16:37 | Outpatient (BNVA) | payer OTHER, SELFPAY | PROVIDERS: PCP Family Medicine; Visit Provider Internal Medicine Cardiovascular Disease | DX: Z95.2 Presence of prosthetic heart valve (principal) | CPT/HCPCS: 85610 ==

== ENCOUNTER → 2021-07-02 11:48 | Outpatient (BNVA) | payer OTHER, SELFPAY | PROVIDERS: PCP Family Medicine; Visit Provider Nurse Practitioner Family | DX: M25.572 Pain in left ankle and joints of left foot (principal) | CPT/HCPCS: 73610 ==

== ENCOUNTER → 2021-07-28 15:29 | Outpatient (BNVA) | payer OTHER, SELFPAY | PROVIDERS: PCP Family Medicine; Visit Provider Family Medicine | DX: I10 Essential (primary) hypertension (principal); E03.9 Hypothyroidism, unspecified; F41.1 Generalized anxiety disorder; G47.00 Insomnia, unspecified; Z95.2 Presence of prosthetic heart valve | CPT/HCPCS: 80053; 80061; 84443; 85025; 85610 ==

== ENCOUNTER → 2021-08-19 13:57 | Outpatient (BNVA) | payer MEDICAID, SELFPAY | PROVIDERS: PCP Family Medicine; Visit Provider Internal Medicine Cardiovascular Disease | DX: Z95.2 Presence of prosthetic heart valve (principal) | CPT/HCPCS: 85610 ==

== ENCOUNTER → 2021-08-29 10:15 | Outpatient (BNVA) | payer MEDICAID, SELFPAY | PROVIDERS: PCP Family Medicine; Visit Provider Internal Medicine Cardiovascular Disease | DX: Z95.2 Presence of prosthetic heart valve (principal) | CPT/HCPCS: 85610 ==

== ENCOUNTER → 2021-09-15 13:56 | Outpatient (BNVA) | payer MEDICAID, SELFPAY | PROVIDERS: PCP Family Medicine; Visit Provider Internal Medicine Cardiovascular Disease | DX: Z95.2 Presence of prosthetic heart valve (principal) | CPT/HCPCS: 85610 ==

== ENCOUNTER → 2021-09-26 11:47 | Outpatient (BNVA) | payer MEDICAID, SELFPAY | PROVIDERS: PCP Family Medicine; Visit Provider Internal Medicine Cardiovascular Disease | DX: Z95.2 Presence of prosthetic heart valve (principal) | CPT/HCPCS: 85610 ==

== ENCOUNTER → 2021-10-10 11:35 | Outpatient (BNVA) | payer MEDICAID, SELFPAY | PROVIDERS: PCP Family Medicine; Visit Provider Internal Medicine Cardiovascular Disease | DX: E03.9 Hypothyroidism, unspecified (principal); N39.0 Urinary tract infection, site not specified; Z95.2 Presence of prosthetic heart valve; E78.5 Hyperlipidemia, unspecified; I10 Essential (primary) hypertension; Z77.22 Contact with and (suspected) exposure to environmental tobacco smoke (acute) (chronic) | CPT/HCPCS: 80053; 80061; 81003; 84443; 85610; 87077; 87086; 87184 ==

== ENCOUNTER → 2021-10-27 09:32 | Outpatient (BNVA) | payer MEDICAID, SELFPAY | PROVIDERS: PCP Family Medicine; Visit Provider Internal Medicine Cardiovascular Disease | DX: Z95.2 Presence of prosthetic heart valve (principal) | CPT/HCPCS: 85610 ==

== ENCOUNTER → 2021-10-29 16:37 | Outpatient (BNVA) | payer MEDICAID, SELFPAY | PROVIDERS: PCP Family Medicine; Visit Provider Internal Medicine Cardiovascular Disease | DX: Z79.01 Long term (current) use of anticoagulants (principal) ==

== ENCOUNTER → 2021-11-03 13:53 | Outpatient (BNVA) | payer MEDICAID, SELFPAY | PROVIDERS: PCP Family Medicine; Visit Provider Internal Medicine Cardiovascular Disease | DX: Z95.2 Presence of prosthetic heart valve (principal) | CPT/HCPCS: 85610 ==

== ENCOUNTER → 2021-11-06 11:30 | Outpatient (BNVA) | payer MEDICAID, SELFPAY | PROVIDERS: PCP Family Medicine; Visit Provider Internal Medicine Cardiovascular Disease | DX: Z79.01 Long term (current) use of anticoagulants (principal) ==

== ENCOUNTER → 2021-11-10 09:41 | Outpatient (BNVA) | payer MEDICAID, SELFPAY | PROVIDERS: PCP Family Medicine; Visit Provider Nurse Practitioner Family | DX: Z95.2 Presence of prosthetic heart valve (principal); I10 Essential (primary) hypertension; I25.10 Atherosclerotic heart disease of native coronary artery without angina pectoris; Z79.01 Long term (current) use of anticoagulants | CPT/HCPCS: 36415; 80048; 83880; 85025; 85610; 99214 ==

== ENCOUNTER → 2021-11-18 15:32 | Outpatient (BNVA) | payer MEDICAID, SELFPAY | PROVIDERS: PCP Family Medicine; Visit Provider Internal Medicine Cardiovascular Disease | DX: Z95.2 Presence of prosthetic heart valve (principal) | CPT/HCPCS: 85610 ==

== ENCOUNTER → 2021-11-26 14:30 | Outpatient (BNVA) | payer MEDICAID, SELFPAY | PROVIDERS: PCP Family Medicine; Visit Provider Internal Medicine Cardiovascular Disease | DX: Z79.01 Long term (current) use of anticoagulants (principal) ==

== ENCOUNTER → 2021-12-02 14:31 | Outpatient (BNVA) | payer MEDICAID, SELFPAY | PROVIDERS: PCP Family Medicine; Visit Provider Internal Medicine Cardiovascular Disease | DX: Z95.2 Presence of prosthetic heart valve (principal) | CPT/HCPCS: 85610 ==

== ENCOUNTER → 2021-12-05 08:45 | Outpatient (BNVA) | payer MEDICAID, SELFPAY | PROVIDERS: PCP Family Medicine; Visit Provider Internal Medicine Cardiovascular Disease | DX: Z79.01 Long term (current) use of anticoagulants (principal) ==

== ENCOUNTER → 2021-12-15 10:30 | Outpatient (BNVA) | payer MEDICAID, SELFPAY | PROVIDERS: PCP Family Medicine; Visit Provider Internal Medicine Cardiovascular Disease | DX: Z95.2 Presence of prosthetic heart valve (principal) | CPT/HCPCS: 85610 ==

== ENCOUNTER → 2021-12-19 08:40 | Outpatient (BNVA) | payer MEDICAID, SELFPAY | PROVIDERS: PCP Family Medicine; Visit Provider Internal Medicine Cardiovascular Disease | DX: Z79.01 Long term (current) use of anticoagulants (principal) ==

== ENCOUNTER → 2021-12-29 16:17 | Outpatient (BNVA) | payer MEDICAID, SELFPAY | PROVIDERS: PCP Family Medicine; Visit Provider Internal Medicine Cardiovascular Disease | DX: Z95.2 Presence of prosthetic heart valve (principal) | CPT/HCPCS: 85610 ==

== ENCOUNTER → 2022-01-01 15:03 | Outpatient (BNVA) | payer MEDICAID, SELFPAY | PROVIDERS: PCP Family Medicine; Visit Provider Internal Medicine Cardiovascular Disease | DX: Z79.01 Long term (current) use of anticoagulants (principal) ==

== ENCOUNTER → 2022-01-23 11:18 | Outpatient (BNVA) | payer MEDICAID, SELFPAY | PROVIDERS: PCP Family Medicine; Visit Provider Internal Medicine Cardiovascular Disease | DX: R06.02 Shortness of breath (principal); I25.10 Atherosclerotic heart disease of native coronary artery without angina pectoris; Z95.2 Presence of prosthetic heart valve; I10 Essential (primary) hypertension; I34.0 Nonrheumatic mitral (valve) insufficiency; F41.1 Generalized anxiety disorder; F17.210 Nicotine dependence, cigarettes, uncomplicated | CPT/HCPCS: 99214 ==

== ENCOUNTER → 2022-03-23 14:01 | Outpatient (BNVA) | payer MEDICAID, SELFPAY | PROVIDERS: PCP Family Medicine; Visit Provider Internal Medicine Cardiovascular Disease | DX: Z95.2 Presence of prosthetic heart valve (principal) | CPT/HCPCS: 85610 ==

== ENCOUNTER → 2022-04-01 13:33 | Outpatient (BNVA) | payer MEDICAID, SELFPAY | PROVIDERS: PCP Family Medicine; Visit Provider Nurse Practitioner Family | DX: I10 Essential (primary) hypertension (principal); J44.9 Chronic obstructive pulmonary disease, unspecified; R06.02 Shortness of breath; J40 Bronchitis, not specified as acute or chronic; R05.9 Cough, unspecified; I25.10 Atherosclerotic heart disease of native coronary artery without angina pectoris; Z95.2 Presence of prosthetic heart valve; R79.89 Other specified abnormal findings of blood chemistry | CPT/HCPCS: 80053; 83880 ==

== ENCOUNTER → 2022-04-02 10:08 | Outpatient (BNVA) | payer MEDICAID, SELFPAY | PROVIDERS: PCP Family Medicine; Visit Provider Nurse Practitioner Family | DX: J40 Bronchitis, not specified as acute or chronic (principal); R05.9 Cough, unspecified; R06.02 Shortness of breath | CPT/HCPCS: 71046 ==

== ENCOUNTER → 2022-04-09 17:56 | Outpatient (BNVA) | payer MEDICAID, SELFPAY | PROVIDERS: PCP Family Medicine; Visit Provider Family Medicine | DX: E03.9 Hypothyroidism, unspecified (principal); G43.909 Migraine, unspecified, not intractable, without status migrainosus; K21.9 Gastro-esophageal reflux disease without esophagitis | CPT/HCPCS: 84443 ==

== ENCOUNTER → 2022-04-21 14:45 | Outpatient (BNVA) | payer MEDICAID, SELFPAY | PROVIDERS: PCP Family Medicine; Visit Provider Internal Medicine Cardiovascular Disease | DX: Z95.2 Presence of prosthetic heart valve (principal) | CPT/HCPCS: 85610 ==

== ENCOUNTER → 2022-04-28 13:33 | Outpatient (BNVA) | payer MEDICAID, SELFPAY | PROVIDERS: PCP Family Medicine; Visit Provider Internal Medicine Cardiovascular Disease | DX: Z95.2 Presence of prosthetic heart valve (principal) | CPT/HCPCS: 85610 ==

== ENCOUNTER → 2022-05-05 12:12 | Outpatient (BNVA) | payer MEDICAID, SELFPAY | PROVIDERS: PCP Family Medicine; Visit Provider Internal Medicine Cardiovascular Disease | DX: Z95.2 Presence of prosthetic heart valve (principal) | CPT/HCPCS: 85610 ==

== ENCOUNTER 2022-05-14 06:50 | Outpatient (CLI) | payer MEDICAID, SELFPAY ==
--- NOTE | 2022-05-14 | ECG_ITS ---
[facility] Test Date: 2022-05-14 Pat Name: Danielle Nix Department: Room: Gender: Female Field Servicer: Lizzeth Zuniga : 1965 Requested By: Christina Nelson Order Number: [id number] Rickie MD: Bindu Conway M.D. Interpretive Statements NAME OF STUDY: LEXISCAN SESTAMIBI STRESS TEST INDICATION: Exertional Shortness of Breath PROCEDURE: At the baseline, the blood pressure was 216/85 mmHg, oxygen saturation 97% with a heart rate of 90 bpm. The electrocardiogram showed normal sinus rhythm, normal axis. Borderline left ventricular hypertrophy. The Lexiscan was infused over a period of 20 seconds. A total of 0.4 milligrams of Lexiscan was infused. The stress phase was continued for a total of 5 minutes. Heart rate at the end of the stress phase was 110 bpm, oxygen saturation 97% with a blood pressure of 165/79 mmHg. The EKG at the peak infusion revealed [address] depression in leads II, III, aVF, V4 to V6 and biphasic T waves. The study was terminated due to protocol completion. Sestamibi was injected 20 seconds after the Lexiscan infusion. Blood pressure at the end of the recovery phase was 145/81 mmHg, oxygen saturation 94% with a heart rate of 103 beats per minute. CONCLUSION: 1. Positive EKG response to LexiScan infusion. 2. No LexiScan induced chest pain or cardiac arrhythmia. 3. Baseline hypertension with normal blood pressure and heart rate response. 4. Sestamibi/sestamibi perfusion scan pending; see separate report. Electronically Signed On 05-18-2022 12:02:55 CDT by Bindu Conway M.D. [email or web address]/store/[id number]
--- NOTE | 2022-05-14 07:00 | USCV_ITS ---
Danielle Nix Age: 57 Gender: F : 1965 Exam Date: 05/14/2022 07:28 Ordering Phys: Martha Benavides NP Technologist: Jorge Dorsey [place]am [place] [facility] [place] Indication: Shortness of breath, elevated BNP BP: 130 / 80 HR: 83 Rhythm: Sinus Technical Quality: Adequate MEASUREMENTS (Male / Female) Normal Values 2D ECHO LV Diastolic Diameter PLAX 3.6 cm 4.2 - 5.9 / 3.9 - 5.3 cm LV Systolic Diameter PLAX 2.4 cm IVS Diastolic Thickness 0.9 cm 0.6 - 1.0 / 0.6 - 0.9 cm IVS Systolic Thickness 1.2 cm LVPW Diastolic Thickness 1.3 cm 0.6 - 1.0 / 0.6 - 0.9 cm LVPW Systolic Thickness 1.7 cm LVOT Diameter 1.9 cm LV Ejection Fraction 2D Teich 63.1 % LV Ejection Fraction MOD 2C 56.7 % LV Ejection Fraction 2C AL 56.0 % LA Diameter 3.0 cm LA Width 3.7 cm LA Height 4.4 cm RA Width 3.4 cm RA Height 4.0 cm Aorta at Sinotubular Diameter 1.7 cm IVC Diameter 1.1 cm M-MODE MV E Point Septal Separation 0.7 cm DOPPLER AV Peak Velocity 296.0 cm/s LVOT Peak Velocity 80.0 cm/s AV Area Cont Eq vti 0.8 cm squared AV Area Cont Eq pk 0.8 cm squared MV Peak Velocity 127.0 cm/s MV Area PHT 5.4 cm squared Mitral E to A Ratio 0.9 MV E' Velocity 53.5 cm/s Mitral E to MV E' Ratio 8.6 Mitral E to LV E' Lateral Ratio 8.6 Mitral E to LV E' Septal Ratio 8.6 Right Atrial Pressure 3.0 mmHg PV Peak Velocity 109.0 cm/s RV Acceleration Time 0.1 s RV Ejection Time 0.3 s RV AcT/ET 0.3 FINDINGS Left Ventricle Normal left ventricular cavity size and systolic function. Mildly increased left ventricular wall thickness. Left ventricular ejection fraction is estimated at 65 %. No regional wall motion abnormality. Normal diastolic function. Right Ventricle Normal right ventricular size and systolic function. Right Atrium Normal right atrial size. Left Atrium Normal left atrial size. Mitral Valve Mitral annular calcification. Moderately thickened mitral valve. Trace mitral valve regurgitation. Aortic Valve Mechanical prosthetic aortic valve ([address] mm [address] Trent's bileaflet valve ) well-seated and normally functioning. Peak velocity 3.2 m/s, peak gradient 40 mmHg and mean gradient 17 mmHg. Dimensionless valve index 0.25. Acceleration time 75 ms. No significant valvular perivalvular regurgitation. Tricuspid Valve Structurally normal tricuspid valve. No tricuspid valve stenosis. Trace tricuspid valve regurgitation. Pulmonic Valve Pulmonic valve not well visualized. No pulmonary valve stenosis. No pulmonary valve regurgitation. Pericardium No pericardial effusion. Aorta Aorta not well visualized. IVC Normal IVC dimension with >50% respiratory change of the inferior vena cava. CONCLUSIONS 1. Normal left ventricular cavity size and systolic function. Mildly increased left ventricular wall thickness. Left ventricular ejection fraction is estimated at 65 %. No regional wall motion abnormality. Normal diastolic function. 2. Normal right ventricular size and systolic function. 3. Mechanical prosthetic aortic valve (21 mm [address] Trent's bileaflet valve ) well-seated and normally functioning. Peak velocity 3.2 m/s, peak gradient 40 mmHg and mean gradient 17 mmHg. Dimensionless valve index 0.25. Acceleration time 75 ms. No significant valvular perivalvular regurgitation. 4. When compared to prior study dated 05/16/2018, there is mechanical aortic valve now. Bindu Conway MD (Electronically Signed) Final Date: 18 May 2022 12:34 S
[2022-05-14 07:15] VITALS: BMI 28.3
--- NOTE | 2022-05-14 07:16 | NMCV_ITS ---
NM deshawn perf SPECT r/s* [id number] Danielle Nix Age: 57 Gender: F : 1965 Exam Date: 05/14/2022 07:16 Ordering Phys: Christina Nelson MD Technologist: HOANG Mcmahon Exam Location: [facility] Indications: SHORTNESS OF BREATH STRESS TEST [facility] IMAGE PROTOCOL Rest/Stress 1 Lexiscan Day Radiopharmaceutical Dose (mCi) Administration Site Administered by Rest: Tc-99m 10.8 IV HOANG Portillo Sestamibi Stress:Tc-99m 32.6 IV HOANG Portillo Sestamibi Rest: 14-May-2022 60 Discovery 630 Stress: 14-May-2022 30 Discovery 630 0.4mg Lexiscan. Images obtained in supine and prone position. SPECT RESULTS Technical Quality: Excellent Raw Data Analysis: Normal Image Corrections: No attenuation or motion correction applied Summed Stress Score: 0 Summed Rest Score: 2 Summed Difference Score: 0 PERFUSION FINDINGS SPECT images demonstrate homogeneous tracer distribution throughout the myocardium. FUNCTIONAL RESULTS (calculated via Gated SPECT) Stress Image LV EF (%): 69 Stress EDV (mL):85 TID: 1.09 Stress ESV (mL):26 FUNCTIONAL FINDINGS: There is normal left ventricular systolic function. IMPRESSIONS 1. Normal myocardial perfusion imaging with no evidence of ischemia 2. LV systolic function is normal Brett Ca MD (Electronically Signed) Final Date: 14 May 2022 11:17 S
[2022-05-14 08:35] VITALS: BP 145/81; PULSE 106
[2022-05-14] MEDS: regadenoson 0.4 Mg/5 ml Syringe IVP (08:45)
== END 2022-05-14 06:51 | disposition home or self-care (01) ==
PROVIDERS: PCP Family Medicine; Visit Provider Nurse Practitioner Family
DX: R06.02 Shortness of breath (principal)
CPT/HCPCS: 78452; 93017; 93306; A9500; J2785

== ENCOUNTER 2022-06-16 10:43 | Observation (INO) | payer MEDICAID, SELFPAY ==
[2022-06-15 13:29] LABS: Basophils # 0.1 10^3/uL (0.0-0.1); Eosinophils # 0.1 10^3/uL (0.0-0.8); Eosinophils % 1.9 %; Hematocrit 42.8 % (37.0-47.0); Lymphocytes # 2.6 10^3/uL (0.8-4.8); Lymphocytes % 38.7 %; Mean Corpuscular HGB Conc 30.4 g/dL (30.0-36.0); Mean Corpuscular Volume 79.1 fl (81-99); Mean Platelet Volume 10.6 fL (7.4-10.4); Monocytes # 0.5 10^3/uL (0.2-0.9); Monocytes % 7.2 %; Neutrophils # 3.41 10^3/uL (1.8-7.7); Neutrophils % 50.9 %; Nucleated Red Blood Cells % 0 %; Platelet Count 286 10^3/cmm (130-400); Red Blood Count 5.41 10^6/uL (4.1-5.3); Red Cell Distribution Width 17.1 % (12.1-15.1); White Blood Count 6.7 10^3/uL (4.0-10.0)
[2022-06-15 14:02] LABS: Anion Gap 12.7 (5-19); Blood Urea Nitrogen 27 mg/dL (6-20); Calcium 9.7 mg/dL (8.5-10.5); Carbon Dioxide 29 mmol/L (22-29); Chloride 100 mmol/L (98-107); Glomerular Filtration Rate 27.4 mL/min (90-130); Glucose 78 mg/dL (65-115); Magnesium 2.5 mg/dL (1.7-2.3); NT Pro B Type Natriuretic Pept 190 pg/mL (0-125); Osmolality Calculated 290 mOsm/kg (285-295); Potassium 3.7 mmol/L (3.5-5.1); Sodium 138 mmol/L (136-145)
[2022-06-15 14:59] LABS: INR 1.38 (0.83-1.21); Prothrombin Time (Patient) 17.3 Seconds (12.0-15.1)
[2022-06-16] VITALS (7 sets, daily range): BP systolic 160–174; BP diastolic 72–82; PULSE 62–68; RESP 16–21; TEMP 36.5–36.8; O2SAT 96–98; BMI 29.2
[2022-06-16] MEDS: sodium chloride 0.9% 1,000 ML 75 ML IV (11:51)
[2022-06-16 12:16] LABS: Basophils % 0.6 %; Eosinophils # 0.1 10^3/uL (0.0-0.8); Eosinophils % 1.8 %; Hematocrit 39.2 % (37.0-47.0); Hemoglobin 11.9 g/dL (11.5-15.3); Lymphocytes # 2.1 10^3/uL (0.8-4.8); Lymphocytes % 32.2 %; Mean Corpuscular HGB Conc 30.4 g/dL (30.0-36.0); Mean Corpuscular Hemoglobin 24.3 pg (28.0-34.0); Mean Platelet Volume 10.9 fL (7.4-10.4); Monocytes # 0.6 10^3/uL (0.2-0.9); Monocytes % 8.9 %; Neutrophils # 3.67 10^3/uL (1.8-7.7); Nucleated Red Blood Cells % 0 %; Platelet Count 264 10^3/cmm (130-400); Red Cell Distribution Width 17.3 % (12.1-15.1); White Blood Count 6.6 10^3/uL (4.0-10.0)
[2022-06-16 12:31] LABS: INR 1.15 (0.8-1.2)
[2022-06-16 12:41] LABS: Anion Gap 13.8 (5-19); Blood Urea Nitrogen 28 mg/dL (6-20); Calcium 9.4 mg/dL (8.5-10.5); Carbon Dioxide 29 mmol/L (22-29); Chloride 98 mmol/L (98-107); Glomerular Filtration Rate 27.4 mL/min (90-130); Glucose 77 mg/dL (65-115); Osmolality Calculated 288 mOsm/kg (285-295); Potassium 3.8 mmol/L (3.5-5.1); Sodium 137 mmol/L (136-145)
--- NOTE | 2022-06-16 13:19 | P.HP_ITS ---
Providers/Chief Complaint Admitting Physician: Bindu Conway MD Primary Care Provider: Christina Nelson MD Chief Complaint: R94.39 History of Present Illness Danielle Nix is a 57 year old female with PMHx of HTN, h/o rheumatic fever, COPD, h/o GBS in 2017, left renal artery stenosis (60% in 2016), migraine, hypothyroidism and SLE. She underwent aortic valve replacement with [address] Trent's bileaflet valve on 10/24/2018 for severe AI and had transient heart block post sx.She was also found to have CAD (history of 40% left main stenosis on [facility] August 2018) and is chronically on warfarin for anticoagulation.? She reports shortness of breath walking about 50 ft and with doing housework.? Denies chest pain, lower extremity edema, orthopnea, PND. She had stress test with positive EKG changes and normal perfusion imagin on lexiscan sestamibi perfusion test. She came in for outpatient [facility] but creatinine increased to 1.9 from 1.3 in 03/2022. She is being admitted for pre [facility] hydration. She has contrast allergy and is also being bridged with lovenox. Review of Systems Const: Denies: fever(s) or chills Eyes: Denies: change in vision Card: Reports: dyspnea on exertion; Denies: chest pain, palpitations, swelling of feet/ankles, lightheadedness or orthopnea Resp: Denies: dyspnea, productive cough or non-productive cough GI: Denies: abdominal pain, nausea or vomiting Musc: Denies: neck pain, back pain or joint pain Neuro: Reports: headache(s); Denies: dizziness Psych: Reports: anxiety; Denies: depression Bakari/Lymph: Denies: easy bruising or easy bleeding Medications/Allergies Home Medications Medication Instructions Recorded Confirmed Last Taken Type oxyquinoline 0.025 %-sodium lauryl See Rx Instructions vaginal 01/22/21 06/15/22 Unknown Rx sulfate 0.01 % vaginal gel .COMPLEX #113.4 grams (Trimo-Winslow Jelly) warfarin 1 mg tablet 1 mg PO DIRECTED 09/15/21 06/15/22 Unknown History warfarin 4 mg tablet 4 mg PO DAILY #30 tabs 12/22/21 06/15/22 Unknown Rx warfarin 2 mg tablet 2 mg PO DAILY #90 tabs 12/30/21 06/15/22 06/09/22 Rx metoprolol tartrate 50 mg tablet 75 mg PO BID #225 tabs 01/23/22 06/16/22 06/16/22 07:30 Rx warfarin 3 mg tablet 3 mg PO DIRECTED #30 tabs 02/23/22 06/15/22 06/08/22 Rx albuterol sulfate 0.63 mg/3 mL 0.63 mg (3 mL) inhalation Q4H PRN 04/01/22 06/15/22 Unknown Rx solution for nebulization shortness of breath or wheezing #90 mL albuterol sulfate 90 mcg/actuation 2 puff inhalation QID PRN 04/01/22 06/15/22 Unknown Rx aerosol inhaler (ProAir HFA) shortness of breath or wheezing #8.5 grams levothyroxine 88 mcg tablet See Rx Instructions .Route 04/09/22 06/16/2203/30 07:30 Rx (Euthyrox) .COMPLEX #90 tabs omeprazole 20 mg capsule,delayed 20 mg PO DAILY #30 caps 04/09/22 06/16/22 06/16/22 07:30 Rx release temazepam 30 mg capsule 30 mg PO .qhs #30 caps 05/04/22 06/16/22 06/15/22 21:00 Rx bupropion HCl 300 mg 24 hr tablet, See Rx Instructions .Route 05/18/22 06/16/22 06/16/22 07:30 Rx extended release .COMPLEX #90 tabs diphenhydramine HCl 25 mg tablet 50 mg PO DIRECTED PRN allergy 06/01/22 06/15/22 Unknown Rx (Benadryl Allergy) symptoms 1 day #2 tabs enoxaparin 80 mg/0.8 mL 70 mg (0.7 mL) SUBCUT DIRECTED 06/01/22 06/16/22 06/15/22 21:00 Rx subcutaneous syringe Bridging for Warfarin 5 days #7 mL hydrochlorothiazide 50 mg tablet 50 mg PO QAM CHF #90 tabs 06/01/22 06/16/22 06/15/22 07:30 Rx prednisone 50 mg tablet 50 mg PO DIRECTED PRN allergic 06/01/22 06/15/22 Unknown Rx reaction 1 day #3 tabs rimegepant 75 mg disintegrating 75 mg PO DAILY PRN Migraine 06/01/22 06/15/22 Unknown History tablet (Nurtec ODT) Headache budesonide-formoterol HFA 160 2 puff inhalation Q12H PRN sob 06/16/22 06/15/22 Unknown History mcg-4.5 mcg/actuation aerosol inhaler (Symbicort) Allergies Allergy/AdvReac Type Severity Reaction Status Date / Time amitriptyline Allergy Unknown Verified 04/09/22 16:43 Iodinated Contrast Media Allergy ALGY-Rash Verified 04/09/22 16:43 PFSH Acute PFSH: Medical History Arthralgia Brain fog CAD (coronary artery disease) Chronic migraine without aura, intractable, with status migrainosus Chronic right hip pain SURFACE MINER demyelination COPD (chronic obstructive pulmonary disease) Dyspareunia Fatigue CANDIS (generalized anxiety disorder) GERD (gastroesophageal reflux disease) 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 Nelson Osteopenia Renal artery stenosis in 1 of 2 vessels Renovascular hypertension Tachycardia Thrombocytopenia Vitamin D deficiency Surgical History History of bone marrow biopsy S/P aortic valve replacement (~2018) [place] S/P cataract extraction S/P thyroidectomy S/P tonsillectomy Status post biopsy of kidney benign Status post hip surgery (~12/2020) Family History Mother Thyroid disease Sister Thyroid disease x2 Grandmother Thyroid disease Maternal Aunt Family/Other Thyroid disease Maternal Aunt Social History Smoking and tobacco status: never smoked Second hand smoke exposure: Yes Alcohol intake: never Caregiver/support person: Yes Lives independently: Yes Household members: spouse Marital status: Current occupational status: employed Current occupation: [employer] History of recent travel: No Current gender identity: Female Vitals/I&O/Wt Last Vital Signs Temp 98.2 F 06/16/22 12:00 Pulse 68 06/16/22 12:00 Resp 21 H 06/16/22 12:00 BP 160/74 06/16/22 12:00 Pulse Ox 98 06/16/22 12:00 O2 Del Method 06/16/22 12:00 Weight last 48 hrs Weight 160 lb 1 oz Physical Exam Const: COMMON NORMALS: no acute distress, patient oriented x3 and alert GENERAL APPEARANCE: cooperative, comfortable, well kempt and well hydrated HENMT: COMMON NORMALS: hearing grossly normal bilaterally, external ears normal and moist oral mucous membranes FACE & SINUS: normal facial exam NOSE: Normal septum present EXTERNAL EAR: Yes external ears normal Eye: COMMON NORMALS: EOMs intact bilaterally and no scleral icterus GENERAL EYE: appearance normal, both eyes and all related structures Neck/C-Spine: COMMON NORMALS: no lymphadenopathy, supple and no JVD GENERAL: Yes normal visual inspection CAROTIDS: Yes normal carotid upstroke Chest: COMMONS NORMALS: normal inspection of the chest and normal palpation of entire chest wall CHEST: Yes Symmetrical chest wall rise and No tenderness Resp: COMMON NORMALS: clear to auscultation bilaterally AUSCULTATION: clear to auscultation bilaterally, no crackles, no rales, no rhonchi and no wheezes Cardio: COMMON NORMALS: no JVD, regular rate, regular rhythm, S1 normal heart sound present, S2 normal heart sound present and Peripheral pulses 2+ throughout PALPATION: normal PMI RATE: regular rate RHYTHM: regular rhythm HEART SOUNDS: S1 normal heart sound present, S2 normal heart sound present, no click, no gallops, no murmurs and Other heart sounds present (mechanical heart sound+) BRUITS: no carotid bruits PERIPHERAL PULSES: Peripheral pulses 2+ throughout, radial pulses present, posterior tibial pulses present and dorsalis pedis present GI: COMMON NORMALS: Soft to palpation AUSCULTATION: Yes normoactive bowel sounds PALPATION: Yes Soft to palpation, No Tenderness to palpation present (GI), No Guarding due to palpation present (GI) and No Rigid due to palpation Extremity: GENERAL: No cyanosis, Yes edema and No pallor Neuro: COMMON NORMALS: patient oriented x3, CN's II-XII intact bilaterally and no focal motor deficits SENSORIUM/ORIENTATION: Yes alert Psych: COMMON NORMALS: Normal thought process present and speech normal APPEARANCE: Yes well kempt SPEECH: Yes normal speech MOOD & AFFECT: Yes euthymic mood THOUGHT PROCESS: Normal thought process present THOUGHT CONTENT: Yes Normal thought content present Data : 11/08/22 12:05 06/16/22 12:05 Other data: Date of Service: 05/14/22 Procedure(s): CV. echo complete* [id number] ?CONCLUSIONS ?1. Normal left ventricular cavity size and systolic function.??Mildly increased left ventricular wall thickness. Left ?ventricular ejection fraction is estimated at 65 %.? No regional?wall motion abnormality. Normal diastolic function. ?2. Normal right ventricular size and systolic function.? ?3. Mechanical prosthetic aortic valve ([address] mm [address] Trent's?bileaflet valve ) well- seated and normally functioning.? Peak?velocity 3.2 m/s, peak gradient 40 mmHg and mean gradient 17 ?mmHg.? Dimensionless valve index 0.25.? Acceleration time 75 ms.??No significant valvular perivalvular regurgitation. ?4. When compared to prior study dated 05/16/2018, there is?mechanical aortic valve now. ?Bindu Conway MD? ?(Electronically Signed) Date of Service: 05/14/22 Procedure(s): Sestamibi Stress Test Request CONCLUSION: 1. Positive EKG response to LexiScan infusion. 2. No LexiScan induced chest pain or cardiac arrhythmia. 3. Baseline hypertension with normal blood pressure and heart rate response. 4. Sestamibi/sestamibi perfusion scan pending; see separate report. Electronically Signed On 05-18-2022 12:02:55 CDT by Bindu Conway M.D. Date of Service: 05/14/22 Procedure(s): NM deshawn perf SPECT r/s* [id number] ?IMPRESSIONS ?1. Normal myocardial perfusion imaging with no evidence of ischemia ?2. LV systolic function is normal ?Brett Ca MD? ?(Electronically Signed) Echo (09/11/19): Normal LV size with mildly increased LV wall thickness. Low normal LV function. LVEF=50-55%. Mild bitrial enlargement and moderate mitral regurgitation. Cardiac cath (08/16/2018): Normal LAD, LCX, RCA. 40% lesion in LM. Normal right atrial, right ventricular, PA and wedge pressure. 3-4+ AI. Renal duplex (01/2016) FINDINGS Elevated left proximal renal artery flow velocity of greater than 200 cm/s Normal ressistive indicis on the right side with a minimally elevated ressistive indicis on the left side Relatively small kidney on the right side Mild to moderate diffuse plaques in the abdominal aorta CONCLUSIONS Elevated velocity in the left proximal renal artery, suggestive of greater than 60% stenosis. Relatively small kidney on the right side with no evidence of stenosis in the right renal artery Compared to the study from 05/14/2015, there may not be a significant change A&P Assessment and plan (1) Acute kidney injury superimposed on CKD: NS @ 75 cc/hr -hold off HCTZ -f/u on BMP in am (2) Exertional shortness of breath: Abnormal stress test -plan for [facility] possibly on (3) CAD (coronary artery disease): 40% LM disease on last [facility] Qualifiers: Coronary Disease-Associated Artery/Lesion type: [place] artery [place] vs. transplanted heart: [place] heart Associated angina: without angina Qualified Code(s): I25.10 - Atherosclerotic heart disease of [place] coronary artery without angina pectoris (4) Essential hypertension: (5) Lupus (systemic lupus erythematosus): Qualifiers: Systemic lupus erythematosus type: unspecified Systemic lupus erythematosus organ involvement: unspecified Qualified Code(s): M32.9 - Systemic lupus erythematosus, unspecified (6) Hypothyroidism: Qualifiers: Hypothyroidism type: unspecified Qualified Code(s): E03.9 - Hypothyroidism, unspecified Plan H/o left renal artery stenosis: f/u on renal duplex; will order renal duplex GERD HLD Anxiety Attestations Medical Necessity Statement*: needs hospital stay for hydration pre C Time Spent in Patient Care: Greater than 35 minutes Coding Level of Care Code Acute Metallurgical Inspector for g Fwd Diagnoses Acute kidney injury superimposed on CKD N17.9; N18.9 Exertional shortness of breath R06.02 CAD (coronary artery disease) I25.10 Coronary Disease-Associated Artery/Lesion type: [place] artery [place] vs. transplanted heart: [place] heart Associated angina: without angina Essential hypertension I10 Lupus (systemic lupus erythematosus) M32.9 Systemic lupus erythematosus type: unspecified Systemic lupus erythematosus organ involvement: unspecified Hypothyroidism E03.9 Hypothyroidism type: unspecified
[2022-06-16] MEDS: enoxaparin 80 mg/0.8 mL Syringe 70 MG SUBCUT (13:38)
[2022-06-16] MEDS: metoprolol tartrate 50 mg Tablet 75 MG PO (18:33)
[2022-06-16] MEDS: atorvastatin 40 mg Tablet 20 MG PO (21:43)
[2022-06-16] MEDS: amlodipine 5 mg Tablet PO (21:44)
[2022-06-16] MEDS: budesonide 0.5 mg/2 mL Neb INHALATION (22:27)
[2022-06-16] MEDS: albuterol 2.5 mg/3 mL Neb INHALATION (22:28)
[2022-06-17] VITALS (11 sets, daily range): BP systolic 132–172; BP diastolic 56–86; PULSE 60–70; RESP 15–22; TEMP 36.6–37.2; O2SAT 94–98
[2022-06-17] MEDS: sodium chloride 0.9% 1,000 ML 75 ML IV ×2 (01:03→14:33)
[2022-06-17] MEDS: enoxaparin 80 mg/0.8 mL Syringe 70 MG SUBCUT ×2 (01:03→13:43)
[2022-06-17] MEDS: buPROPion XL (24 HR) 300 mg Tablet PO (05:38)
[2022-06-17 06:11] LABS: Anion Gap 13.8 (5-19); Blood Urea Nitrogen 27 mg/dL (6-20); Calcium 8.9 mg/dL (8.5-10.5); Carbon Dioxide 26 mmol/L (22-29); Chloride 105 mmol/L (98-107); Glomerular Filtration Rate 31.2 mL/min (90-130); Glucose 105 mg/dL (65-115); Magnesium 2.1 mg/dL (1.7-2.3); Osmolality Calculated 297 mOsm/kg (285-295); Potassium 3.8 mmol/L (3.5-5.1); Sodium 141 mmol/L (136-145)
[2022-06-17 06:20] LABS: Creatinine Clr Calc Pharmacy 34.8861
[2022-06-17 07:02] LABS: INR 1.27 (0.8-1.2)
--- NOTE | 2022-06-17 07:43 | PM.PN ---
Subjective Subjective: She is feeling well. Creatinine is improving Medications: Reviewed: Yes Vitals/I&O/Wt Last Vital Signs Temp 97.8 F 06/17/22 04:00 Pulse 64 06/17/22 06:00 Resp 15 06/17/22 04:00 BP 132/77 06/17/22 04:00 Pulse Ox 95 06/17/22 04:00 O2 Del Method 06/17/22 04:00 06/16/22 06/17/22 06/17/22 22:59 06:59 14:59 Intake Total 990 / 1230 Balance 990 / 1230 Weight last 48 hrs Weight 160 lb 1 oz Physical Exam Const: COMMON NORMALS: no acute distress, patient oriented x3 and alert GENERAL APPEARANCE: cooperative, comfortable, well kempt and well hydrated HENMT: COMMON NORMALS: hearing grossly normal bilaterally, external ears normal and moist oral mucous membranes FACE & SINUS: normal facial exam NOSE: Normal septum present EXTERNAL EAR: Yes external ears normal Eye: COMMON NORMALS: EOMs intact bilaterally and no scleral icterus GENERAL EYE: appearance normal, both eyes and all related structures Neck/C-Spine: COMMON NORMALS: no lymphadenopathy, supple and no JVD GENERAL: Yes normal visual inspection CAROTIDS: Yes normal carotid upstroke Chest: COMMONS NORMALS: normal inspection of the chest and normal palpation of entire chest wall CHEST: Yes Symmetrical chest wall rise and No tenderness Resp: COMMON NORMALS: clear to auscultation bilaterally AUSCULTATION: clear to auscultation bilaterally, no crackles, no rales, no rhonchi and no wheezes Cardio: COMMON NORMALS: no JVD, regular rate, regular rhythm, S1 normal heart sound present, S2 normal heart sound present and Peripheral pulses 2+ throughout PALPATION: normal PMI RATE: regular rate RHYTHM: regular rhythm HEART SOUNDS: S1 normal heart sound present, S2 normal heart sound present, no click, no gallops, no murmurs and Other heart sounds present (mechanical heart sound+) BRUITS: no carotid bruits PERIPHERAL PULSES: Peripheral pulses 2+ throughout, radial pulses present, posterior tibial pulses present and dorsalis pedis present GI: COMMON NORMALS: Soft to palpation AUSCULTATION: Yes normoactive bowel sounds PALPATION: Yes Soft to palpation, No Tenderness to palpation present (GI), No Guarding due to palpation present (GI) and No Rigid due to palpation Extremity: GENERAL: No cyanosis, Yes edema and No pallor Neuro: COMMON NORMALS: patient oriented x3, CN's II-XII intact bilaterally and no focal motor deficits SENSORIUM/ORIENTATION: Yes alert Psych: COMMON NORMALS: Normal thought process present and speech normal APPEARANCE: Yes well kempt SPEECH: Yes normal speech MOOD & AFFECT: Yes euthymic mood THOUGHT PROCESS: Normal thought process present THOUGHT CONTENT: Yes Normal thought content present Data : 06/16/22 12:05 06/17/22 04:39 A&P Assessment and plan (1) Acute kidney injury superimposed on CKD: NS @ 75 cc/hr -hold off HCTZ -creatinine 1.7 today from 1.9. -f/u on BMP in am (2) Exertional shortness of breath: Abnormal stress test -plan for [facility] possibly on (3) CAD (coronary artery disease): 40% LM disease on last [facility] Qualifiers: Associated angina: without angina Coronary Disease-Associated Artery/Lesion type: [place] artery [place] vs. transplanted heart: [place] heart Qualified Code(s): I25.10 - Atherosclerotic heart disease of [place] coronary artery without angina pectoris (4) Essential hypertension: (5) Lupus (systemic lupus erythematosus): patient states after full w/u including kidney biopsy, she was told by rheumatology that does not have lupus. Qualifiers: Systemic lupus erythematosus organ involvement: unspecified Systemic lupus erythematosus type: unspecified Qualified Code(s): M32.9 - Systemic lupus erythematosus, unspecified (6) Hypothyroidism: Qualifiers: Hypothyroidism type: unspecified Qualified Code(s): E03.9 - Hypothyroidism, unspecified Plan H/o left renal artery stenosis: f/u on renal duplex does not show elevated velocities GERD HLD Anxiety Attestations Medical Necessity Statement*: needs hospital stay for pre [facility] hydration. Coding Level of Care Code Acute Automotive Technology Instructor for Chg Fwd Exam Comprehensive Diagnoses Acute kidney injury superimposed on CKD N17.9; N18.9 Exertional shortness of breath R06.02 CAD (coronary artery disease) I25.10 Associated angina: without angina Coronary Disease-Associated Artery/Lesion type: [place] artery [place] vs. transplanted heart: [place] heart Essential hypertension I10 Lupus (systemic lupus erythematosus) M32.9 Systemic lupus erythematosus organ involvement: unspecified Systemic lupus erythematosus type: unspecified Hypothyroidism E03.9 Hypothyroidism type: unspecified
[2022-06-17] MEDS: amlodipine 5 mg Tablet PO (09:11)
[2022-06-17] MEDS: aspirin 81 mg EC Tablet PO (09:11)
[2022-06-17] MEDS: levothyroxine 88 mcg Tablet PO (09:11)
[2022-06-17] MEDS: metoprolol tartrate 50 mg Tablet 75 MG PO ×2 (09:11→18:00)
[2022-06-17] MEDS: albuterol 2.5 mg/3 mL Neb INHALATION ×2 (09:28→13:28)
[2022-06-17] MEDS: budesonide 0.5 mg/2 mL Neb INHALATION (09:29)
--- NOTE | 2022-06-17 20:29 | USCV_ITS ---
Danielle Nix Age: 57 Gender: F : 1965 Exam Date: 06/17/2022 07:41 Ordering Phys: Bindu Conway MD ([email or web address]) Technologist: MIKAEL Exam Location: [facility] [place] Indication: Aortic Velocity @ SMA (cm/s) 72.2 RIGHT KIDNEY LEFT KIDNEY Velocity (cm/s) Velocity (cm/s) Sys/Sprague Sys/Sprague Resistive Index Resistive Index 39.7 / 9.7 0.76 Proximal Renal Artery 43.0 / 6.6 0.85 44.0 / 7.0 0.84 Mid Renal Artery 52.5 / 8.4 0.84 19.3 / 3.8 0.81 Hilar 35.2 / 1.2 0.97 15.8 / 6.0 0.62 Upper Pole 16.1 / 3.6 0.78 12.9 / 12.9 1.70 Mid Pole 22.2 / 8.4 0.62 18.5 / 6.7 0.64 Lower Pole 26.9 / 10.7 0.60 0.61 Renal Aortic Ratio 0.73 Accleration Index (cm/sec2) 134.00 Hilar 345.00 84.00 Upper Pole 134.00 124.00 Mid Pole 1191.0 0 234.00 Lower Pole 74.00 6.2 Kidney Length (mm) 9.9 FINDINGS Comparison: 01/23/16. The elevated left renal artery veolocity is not reproduced as seen on the prior exam. Study is limited by body habitus. Poorly visualized kidneys due to chronic medical renal disease. CONCLUSIONS Examination limited by body habitus. No renal artery stenosis identified. Chronic medical renal disease. Dr. Loraine Cullen DO (Electronically Signed) Final Date: 17 June 2022 12:29 S
[2022-06-17] MEDS: atorvastatin 40 mg Tablet 20 MG PO (20:45)
[2022-06-18] VITALS (14 sets, daily range): BP systolic 158–179; BP diastolic 63–86; PULSE 60–64; RESP 16–22; TEMP 36.3–36.7; O2SAT 19–99
[2022-06-18] MEDS: enoxaparin 80 mg/0.8 mL Syringe 70 MG SUBCUT ×3 (01:11→23:40)
[2022-06-18] MEDS: sodium chloride 0.9% 1,000 ML 75 ML IV (03:47)
[2022-06-18 05:35] LABS: INR 1.17 (0.8-1.2)
[2022-06-18] MEDS: buPROPion XL (24 HR) 300 mg Tablet PO (05:38)
[2022-06-18 05:49] LABS: Anion Gap 14.2 (5-19); Blood Urea Nitrogen 23 mg/dL (6-20); Calcium 8.6 mg/dL (8.5-10.5); Carbon Dioxide 21 mmol/L (22-29); Chloride 108 mmol/L (98-107); Glomerular Filtration Rate 42.5 mL/min (90-130); Glucose 88 mg/dL (65-115); Magnesium 1.8 mg/dL (1.7-2.3); Osmolality Calculated 291 mOsm/kg (285-295); Potassium 4.2 mmol/L (3.5-5.1); Sodium 139 mmol/L (136-145)
[2022-06-18] MEDS: budesonide 0.5 mg/2 mL Neb INHALATION ×2 (09:06→20:34)
[2022-06-18] MEDS: albuterol 2.5 mg/3 mL Neb INHALATION ×3 (09:06→20:34)
[2022-06-18] MEDS: amlodipine 5 mg Tablet PO (09:11)
[2022-06-18] MEDS: levothyroxine 88 mcg Tablet PO (09:11)
[2022-06-18] MEDS: metoprolol tartrate 50 mg Tablet 75 MG PO ×2 (09:11→18:04)
[2022-06-18] MEDS: aspirin 81 mg EC Tablet PO (09:11)
--- NOTE | 2022-06-18 11:27 | PM.PN ---
Subjective Subjective: She is feeling well. Creatinine is back to baseline Medications: Reviewed: Yes Vitals/I&O/Wt Last Vital Signs Temp 97.8 F 06/18/22 07:17 Pulse 63 06/18/22 09:07 Resp 16 06/18/22 09:07 BP 179/80 06/18/22 07:17 Pulse Ox 97 06/18/22 09:07 O2 Del Method 06/18/22 09:07 06/17/22 06/18/22 06/18/22 22:59 06:59 14:59 Intake Total 490 / 1850 992.5 / 2842.5 Balance 490 / 1850 992.5 / 2842.5 Weight last 48 hrs Weight 160 lb Weight 160 lb 1 oz Physical Exam Const: COMMON NORMALS: no acute distress, patient oriented x3 and alert GENERAL APPEARANCE: cooperative, comfortable, well kempt and well hydrated HENMT: COMMON NORMALS: hearing grossly normal bilaterally, external ears normal and moist oral mucous membranes FACE & SINUS: normal facial exam NOSE: Normal septum present EXTERNAL EAR: Yes external ears normal Eye: COMMON NORMALS: EOMs intact bilaterally and no scleral icterus GENERAL EYE: appearance normal, both eyes and all related structures Neck/C-Spine: COMMON NORMALS: no lymphadenopathy, supple and no JVD GENERAL: Yes normal visual inspection CAROTIDS: Yes normal carotid upstroke Chest: COMMONS NORMALS: normal inspection of the chest and normal palpation of entire chest wall CHEST: Yes Symmetrical chest wall rise and No tenderness Resp: COMMON NORMALS: clear to auscultation bilaterally AUSCULTATION: clear to auscultation bilaterally, no crackles, no rales, no rhonchi and no wheezes Cardio: COMMON NORMALS: no JVD, regular rate, regular rhythm, S1 normal heart sound present, S2 normal heart sound present and Peripheral pulses 2+ throughout PALPATION: normal PMI RATE: regular rate RHYTHM: regular rhythm HEART SOUNDS: S1 normal heart sound present, S2 normal heart sound present, no click, no gallops, no murmurs and Other heart sounds present (mechanical heart sound+) BRUITS: no carotid bruits PERIPHERAL PULSES: Peripheral pulses 2+ throughout, radial pulses present, posterior tibial pulses present and dorsalis pedis present GI: COMMON NORMALS: Soft to palpation AUSCULTATION: Yes normoactive bowel sounds PALPATION: Yes Soft to palpation, No Tenderness to palpation present (GI), No Guarding due to palpation present (GI) and No Rigid due to palpation Extremity: GENERAL: No cyanosis, No edema and No pallor Neuro: COMMON NORMALS: patient oriented x3, CN's II-XII intact bilaterally and no focal motor deficits SENSORIUM/ORIENTATION: Yes alert Psych: COMMON NORMALS: Normal thought process present and speech normal APPEARANCE: Yes well kempt SPEECH: Yes normal speech MOOD & AFFECT: Yes euthymic mood THOUGHT PROCESS: Normal thought process present THOUGHT CONTENT: Yes Normal thought content present Data : 06/16/22 12:05 06/18/22 04:57 A&P Assessment and plan (1) Acute kidney injury superimposed on CKD: stop NS @ 75 cc/hr -creatinine 1.3 today from1.7 <- 1.9. -f/u on BMP in am (2) Exertional shortness of breath: Abnormal stress test -plan for [facility] tomorrow -Risks and benefits were discussed with the patients. Possible complications including risk of heart attack stroke and , coronary perforation, dissection, arrhythmia, cardiac tamponade in urgent CABG were discussed with the patient as well. Plan is to proceed for the procedure tomorrow. -will premedicate her today (3) CAD (coronary artery disease): 40% LM disease on last [facility] Qualifiers: Associated angina: without angina Coronary Disease-Associated Artery/Lesion type: [place] artery [place] vs. transplanted heart: [place] heart Qualified Code(s): I25.10 - Atherosclerotic heart disease of [place] coronary artery without angina pectoris (4) Essential hypertension: (5) Hypothyroidism: Qualifiers: Hypothyroidism type: unspecified Qualified Code(s): E03.9 - Hypothyroidism, unspecified Plan H/o left renal artery stenosis: f/u on renal duplex does not show elevated velocities GERD HLD Anxiety Attestations Medical Necessity Statement*: needs hospital stay for cath tomorrow Coding Level of Care Code Acute [place] for [facility] Fwd Exam Comprehensive Diagnoses Acute kidney injury superimposed on CKD N17.9; N18.9 Exertional shortness of breath R06.02 CAD (coronary artery disease) I25.10 Associated angina: without angina Coronary Disease-Associated Artery/Lesion type: [place] artery [place] vs. transplanted heart: [place] heart Essential hypertension I10 Hypothyroidism E03.9 Hypothyroidism type: unspecified
[2022-06-18] MEDS: acetaminophen 325 mg Tablet 650 MG PO (13:20)
[2022-06-18] MEDS: amlodipine 5 mg Tablet 2.5 MG PO (15:55)
[2022-06-18] MEDS: atorvastatin 40 mg Tablet 20 MG PO (23:40)
[2022-06-18] MEDS: temazepam 15 mg Capsule 30 MG PO (23:40)
[2022-06-18] MEDS: predniSONE 10 mg Tablet 50 MG PO (23:41)
[2022-06-19] VITALS (120 sets, daily range): BP systolic 131–191; BP diastolic 62–99; PULSE 61–76; RESP 7–29; TEMP 36.6–36.8; O2SAT 62–98
[2022-06-19 02:23] LABS: INR 1.21 (0.8-1.2)
[2022-06-19 02:33] LABS: Anion Gap 14.1 (5-19); Blood Urea Nitrogen 21 mg/dL (6-20); Calcium 9.1 mg/dL (8.5-10.5); Carbon Dioxide 26 mmol/L (22-29); Chloride 106 mmol/L (98-107); Glucose 126 mg/dL (65-115); Osmolality Calculated 299 mOsm/kg (285-295); Potassium 4.1 mmol/L (3.5-5.1); Sodium 142 mmol/L (136-145)
[2022-06-19] MEDS: buPROPion XL (24 HR) 300 mg Tablet PO (05:56)
[2022-06-19] MEDS: predniSONE 20 mg Tablet 50 MG PO ×2 (05:56→12:46)
[2022-06-19] MEDS: metoprolol tartrate 50 mg Tablet 75 MG PO ×2 (09:19→18:05)
[2022-06-19] MEDS: levothyroxine 88 mcg Tablet PO (09:20)
[2022-06-19] MEDS: aspirin 81 mg EC Tablet PO (09:20)
[2022-06-19] MEDS: amlodipine 5 mg Tablet 7.5 MG PO (09:20)
[2022-06-19] MEDS: budesonide 0.5 mg/2 mL Neb INHALATION ×2 (09:42→21:12)
[2022-06-19] MEDS: albuterol 2.5 mg/3 mL Neb INHALATION ×2 (09:42→21:12)
--- NOTE | 2022-06-19 10:26 | P.PN_ITS ---
Subjective Subjective: She is feeling well. Creatinine is back to baseline. Patient was seen before and after [facility] Medications: Reviewed: Yes Vitals/I&O/Wt Last Vital Signs Temp 98.1 F 06/19/22 04:39 Pulse 69 06/19/22 09:43 Resp 22 H 06/19/22 09:43 BP 131/62 06/19/22 04:39 Pulse Ox 96 06/19/22 09:43 O2 Del Method 06/19/22 09:43 06/18/22 06/19/22 06/19/22 22:59 06:59 14:59 Intake Total 1000 / 1200 620 / 1820 Balance 1000 / 1200 620 / 1820 Weight last 48 hrs Weight 160 lb 11.2 oz Physical Exam Const: COMMON NORMALS: no acute distress, patient oriented x3 and alert GENERAL APPEARANCE: cooperative, comfortable, well kempt and well hydrated HENMT: COMMON NORMALS: hearing grossly normal bilaterally, external ears normal and moist oral mucous membranes FACE & SINUS: normal facial exam NOSE: Normal septum present EXTERNAL EAR: Yes external ears normal Eye: COMMON NORMALS: EOMs intact bilaterally and no scleral icterus GENERAL EYE: appearance normal, both eyes and all related structures Neck/C-Spine: COMMON NORMALS: no lymphadenopathy, supple and no JVD GENERAL: Yes normal visual inspection CAROTIDS: Yes normal carotid upstroke Chest: COMMONS NORMALS: normal inspection of the chest and normal palpation of entire chest wall CHEST: Yes Symmetrical chest wall rise and No tenderness Resp: COMMON NORMALS: clear to auscultation bilaterally AUSCULTATION: clear to auscultation bilaterally, no crackles, no rales, no rhonchi and no wheezes Cardio: COMMON NORMALS: no JVD, regular rate, regular rhythm, S1 normal heart sound present, S2 normal heart sound present and Peripheral pulses 2+ throughout PALPATION: normal PMI RATE: regular rate RHYTHM: regular rhythm HEART SOUNDS: S1 normal heart sound present, S2 normal heart sound present, no click, no gallops, no murmurs and Other heart sounds present (mechanical heart sound+) BRUITS: no carotid bruits PERIPHERAL PULSES: Peripheral pulses 2+ throughout, radial pulses present, posterior tibial pulses present and dorsalis pedis present GI: COMMON NORMALS: Soft to palpation AUSCULTATION: Yes normoactive bowel sounds PALPATION: Yes Soft to palpation, No Tenderness to palpation present (GI), No Guarding due to palpation present (GI) and No Rigid due to palpation Extremity: GENERAL: No cyanosis, No edema and No pallor Neuro: COMMON NORMALS: patient oriented x3, CN's II-XII intact bilaterally and no focal motor deficits SENSORIUM/ORIENTATION: Yes alert Psych: COMMON NORMALS: Normal thought process present and speech normal APPEARANCE: Yes well kempt SPEECH: Yes normal speech MOOD & AFFECT: Yes euthymic mood THOUGHT PROCESS: Normal thought process present THOUGHT CONTENT: Yes Normal thought content present Data : 06/16/22 12:05 06/19/22 01:32 A&P Assessment and plan (1) Acute kidney injury superimposed on CKD: -creatinine 1.4 <-1.7 <- 1.9. -f/u on BMP in am (2) Exertional shortness of breath: Abnormal stress test with normal perfusion and positive EKG changes -plan for [facility] today -Risks and benefits were discussed with the patients. Possible complications including risk of heart attack stroke and , coronary perforation, dissection, arrhythmia, cardiac tamponade in urgent CABG were discussed with the patient as well. Patient was found to about 50% distal LM stenosis. iFR was done and came to be significant at 0.89. This was repeated three times. Unable to do LM stent here d/t unavailablity of surgical back up. We will plan to send her outpatient for LM stenting. (3) CAD (coronary artery disease): 40% LM disease on last [facility] Qualifiers: Associated angina: without angina Coronary Disease-Associated Artery/Lesion type: [place] artery [place] vs. transplanted heart: [place] heart Qualified Code(s): I25.10 - Atherosclerotic heart disease of [place] coronary artery without angina pectoris (4) Essential hypertension: (5) Hypothyroidism: Qualifiers: Hypothyroidism type: unspecified Qualified Code(s): E03.9 - Hypothyroidism, unspecified Plan H/o left renal artery stenosis: f/u on renal duplex does not show elevated velocities GERD HLD Anxiety Attestations Medical Necessity Statement*: needs hospital stay post [facility] . discharge in morning Coding Level of Care Code Acute Talent Sourcing Specialist for [facility] [place] Fwd Exam Comprehensive Diagnoses Acute kidney injury superimposed on CKD N17.9; N18.9 Exertional shortness of breath R06.02 CAD (coronary artery disease) I25.10 Associated angina: without angina Coronary Disease-Associated Artery/Lesion type: [place] artery [place] vs. transplanted heart: [place] heart Essential hypertension I10 Hypothyroidism E03.9 Hypothyroidism type: unspecified
[2022-06-19] MEDS: sodium chloride 0.9% 1,000 ML 50 ML IV (10:49)
[2022-06-19] MEDS: diphenhydrAMINE 50 mg Capsule PO (12:46)
--- NOTE | 2022-06-19 13:26 | W.PM.OPSUD ---
Surgery/Procedure H&P Update DATE OF PROCEDURE: June 19, 2022 DATE H&P PERFORMED: 06/19/22 H&P UPDATE INFORMATION: I have reviewed H&P completed within last 30 days, I have examined patient prior to procedure and No changes to prior documentation PREOP DIAGNOSIS: Abnormal stress test, Exertional Shortness of breath PRIMARY INDICATION FOR PROCEDURE: Abnormal stress test, Exertional Shortness of breath PLANNED PROCEDURE: Operation Date: 06/16/22 08:30 Proposed Procedures p [facility] w/wo [id number],R94.39,I25.10,R06.02,R07.9(Left) - Bindu Conway MD PATIENT REASSESSED PRIOR TO SEDATION, WITH NO CHANGE NOTED: Yes PHYSICAL EXAM: alert, oriented x 3, clear to auscultation bilaterally and regular rate & rhythm AIRWAY EVAL/ANESTHESIA PLAN: normal airway, ASA III, Monitored Anesthesia, Local Anesthesia, Risks, benefits & alternatives of sedation and/or procedure discussed and Patient agrees to continue as planned
--- NOTE | 2022-06-19 14:21 | PC.NURSE ---
to cardiac lab animal technologist at 1315 via w/c
[2022-06-19] MEDS: fentaNYL 50 mcg/mL INJ 2mL IVP (15:17)
--- NOTE | 2022-06-19 15:55 | PC.NURSE ---
return from cardiac cathead operator at 1500.awake and alert.oriented x 4.sr on monitor.right femoral arterial sheath removed at 1500
--- NOTE | 2022-06-19 15:57 | PC.NURSE ---
returned from cardiac medical laboratory technicians at 1500.pt alert and oriented x 4.sr on monitor.denied pain.right arterial femoral line intact to pressurized system.no hematoma noted.right leg warm to touch and with brisk capillary refill.palpable dp pulse noted.arterial sheath removed at 1510.manual pressure held x 20 min.vss through-out procedure.no hematoma noted.site dressed with 2x2 gauze and secured with biocclusive drsg.pt tolerated procedure well.instructed in activity restrictions s/p sheath pull..and instructed to notify staff for any bleeding,pain,numbness...or for any concerns at all .pt verb understanding of instruction.
[2022-06-19] MEDS: warfarin 5 mg Tablet PO (18:44)
--- NOTE | 2022-06-19 20:53 | PC.NURSE ---
Patient up out of bed to bathroom. Dressing to right groin remain c,d,i with no s/s of bleeding or hematoma formation observed. Instructed patient on site care. Patient verblized complete understanding. Will continue to monitor.
--- NOTE | 2022-06-19 23:23 | PC.NURSE ---
Addendum entered by Sana Main RN 06/20/22 00:04: Observed patient scratching with redness to abd and back. Original Note: Patient c/o severe itching post LHC. Informed Dr Adams and received telephone order for benadryl 25mg PO every 8 hours as needed for itching.
[2022-06-19] MEDS: diphenhydrAMINE 25 mg Capsule PO (23:54)
[2022-06-19] MEDS: enoxaparin 80 mg/0.8 mL Syringe 70 MG SUBCUT (23:54)
[2022-06-19] MEDS: atorvastatin 40 mg Tablet PO (23:54)
[2022-06-20] VITALS (48 sets, daily range): BP systolic 123–149; BP diastolic 57–78; PULSE 54–73; RESP 14–30; TEMP 36.5–36.8; O2SAT 93–100
[2022-06-20] MEDS: temazepam 15 mg Capsule 30 MG PO (00:24)
--- NOTE | 2022-06-20 00:25 | PC.NURSE ---
Patient reports less itching and scratching since taking ordered Benadryl.
[2022-06-20] MEDS: buPROPion XL (24 HR) 300 mg Tablet PO (06:15)
[2022-06-20 06:17] LABS: Alanine Aminotransferase 40 U/L (0-33); Albumin Level 3.3 g/dL (3.5-5.2); Alkaline Phosphatase 123 U/L (35-105); Anion Gap 12.3 (5-19); Aspartate Amino Transferase 53 U/L (0-32); Blood Urea Nitrogen 26 mg/dL (6-20); Calcium 9.2 mg/dL (8.5-10.5); Carbon Dioxide 24 mmol/L (22-29); Chloride 104 mmol/L (98-107); Cholesterol 242 mg/dL (0-200); Globulin 2.7 g/dL (1.3-4.6); Glomerular Filtration Rate 36.1 mL/min (90-130); Glucose 111 mg/dL (65-115); HDL Cholesterol 59 mg/dL (60-100); LDL Cholesterol Calculated 163 mg/dL (50-129); LDL HDL Ratio 2.76 RATIO (0.00-3.22); Osmolality Calculated 287 mOsm/kg (285-295); Potassium 4.3 mmol/L (3.5-5.1); Sodium 136 mmol/L (136-145); Total Bilirubin 0.2 mg/dL (0.15-1.2); Triglycerides 102 mg/dL (0-150)
[2022-06-20] MEDS: amlodipine 5 mg Tablet 7.5 MG PO (08:39)
[2022-06-20] MEDS: diphenhydrAMINE 25 mg Capsule PO (08:40)
[2022-06-20] MEDS: metoprolol tartrate 50 mg Tablet 75 MG PO (08:40)
[2022-06-20] MEDS: levothyroxine 88 mcg Tablet PO (08:41)
[2022-06-20] MEDS: aspirin 81 mg EC Tablet PO (08:41)
[2022-06-20] MEDS: albuterol 2.5 mg/3 mL Neb INHALATION (08:51)
[2022-06-20] MEDS: budesonide 0.5 mg/2 mL Neb INHALATION (08:51)
--- NOTE | 2022-06-20 10:08 | PM.DCS ---
Discharge Providers Date of Admission: 06/16/22 10:43 Date of Discharge: June 20, 2022 Attending Provider at Admission: Bindu Conway MD Attending Provider at Discharge: Bindu Conway MD Primary Care Provider: Christina Nelson MD Diagnoses at Discharge Discharge Diagnosis (1) Exertional shortness of breath: Status: Acute (2) CAD (coronary artery disease): Status: Acute Qualifiers: Coronary Disease-Associated Artery/Lesion type: [place] artery Elem vs. transplanted heart: [place] heart Associated angina: without angina Qualified Code(s): I25.10 - Atherosclerotic heart disease of [place] coronary artery without angina pectoris (3) Acute kidney injury superimposed on CKD: Status: Acute (4) Essential hypertension: Status: Acute (5) Hypothyroidism: Status: Acute Qualifiers: Hypothyroidism type: unspecified Qualified Code(s): E03.9 - Hypothyroidism, unspecified Reason for Visit Reason for Visit: R94.39 Brief History: Danielle Nix is a 57 year old female?with PMHx of HTN, h/o rheumatic fever, COPD, h/o GBS in 2017, left renal artery stenosis (60% in 2016), migraine, hypothyroidism? and SLE. She underwent aortic valve replacement with [address] [facility] [employer] bileaflet valve on 10/24/2018 for severe AI and had transient heart block post sx.She was also found to have CAD (history of 40% left main stenosis on [facility] August 2018) and is chronically on warfarin for anticoagulation.? She reports shortness of breath walking about 50 ft and with doing housework.? Denies chest pain, lower extremity edema, orthopnea, PND. She had stress test with positive EKG changes and normal perfusion imagin on lexiscan sestamibi perfusion test. She came in for outpatient [facility] but creatinine increased to 1.9 from 1.3 in 03/2022. She was admitted for pre C hydration. She also has contrast allergy and is also being bridged with lovenox given mechanical aortic valve. Hospital Course Hospital Course With hydration her renal function normalized to her baseline creatinine of 1.3-1.4. Her renal ultrasound did not show elevated velocities through left renal artery unlike her previous renal duplex. This was a difficult study but chronic medical renal disease was noted. Patient underwent left heart catheterization yesterday and was found to have distal left main 50 to 60% stenosis. Normal LAD circumflex and right coronary artery. iFR was performed and was found to be significant at 0.89. Patient would like to pursue left main stenting rather than redo sternotomy. Given no surgical backup, decision was made to refer patient to outside hospital for left main stenting. Patient is stable to be discharged today denies having any complaints. She was started on aspirin 81 mg, atorvastatin 40 mg and nitroglycerin sublingual. Physical Exam Const: COMMON NORMALS: no acute distress, patient oriented x3 and alert GENERAL APPEARANCE: cooperative, comfortable, well kempt and well hydrated HENMT: COMMON NORMALS: hearing grossly normal bilaterally, external ears normal and moist oral mucous membranes FACE & SINUS: normal facial exam NOSE: Normal septum present EXTERNAL EAR: Yes external ears normal Eye: COMMON NORMALS: EOMs intact bilaterally and no scleral icterus GENERAL EYE: appearance normal, both eyes and all related structures Neck/C-Spine: COMMON NORMALS: no lymphadenopathy, supple and no JVD GENERAL: Yes normal visual inspection CAROTIDS: Yes normal carotid upstroke Chest: COMMONS NORMALS: normal inspection of the chest and normal palpation of entire chest wall CHEST: Yes Symmetrical chest wall rise and No tenderness Resp: COMMON NORMALS: clear to auscultation bilaterally AUSCULTATION: clear to auscultation bilaterally, no crackles, no rales, no rhonchi and no wheezes Cardio: COMMON NORMALS: no JVD, regular rate, regular rhythm, S1 normal heart sound present, S2 normal heart sound present and Peripheral pulses 2+ throughout PALPATION: normal PMI RATE: regular rate RHYTHM: regular rhythm HEART SOUNDS: S1 normal heart sound present, S2 normal heart sound present, no click, no gallops, no murmurs and Other heart sounds present (mechanical heart sound+) BRUITS: no carotid bruits PERIPHERAL PULSES: Peripheral pulses 2+ throughout, radial pulses present, posterior tibial pulses present and dorsalis pedis present GI: COMMON NORMALS: Soft to palpation AUSCULTATION: Yes normoactive bowel sounds PALPATION: Yes Soft to palpation, No Tenderness to palpation present (GI), No Guarding due to palpation present (GI) and No Rigid due to palpation Extremity: NARRATIVE EXTREMITY EXAM: right groin with mild bruising and small hematoma GENERAL: No cyanosis, No edema and No pallor Neuro: COMMON NORMALS: patient oriented x3, CN's II-XII intact bilaterally and no focal motor deficits SENSORIUM/ORIENTATION: Yes alert Psych: COMMON NORMALS: Normal thought process present and speech normal APPEARANCE: Yes well kempt SPEECH: Yes normal speech MOOD & AFFECT: Yes euthymic mood THOUGHT PROCESS: Normal thought process present THOUGHT CONTENT: Yes Normal thought content present Discharge Data Studies Completed and Pending Completed Studies During Hospitalization Category Date Time Status CV renal doppler [id number] Routine Ultrasound 06/17/22 20:29 Completed Laboratory Results WBC 6.6 10^3/uL (4.0-10.0) 06/16/22 12:05 RBC 4.90 10^6/uL (4.1-5.3) 06/16/22 12:05 Hgb 11.9 g/dL (11.5-15.3) 06/16/22 12:05 Hct 39.2 % (37.0-47.0) 06/16/22 12:05 MCV 80.0 fl (81-99) L 06/16/22 12:05 MCH 24.3 pg (28.0-34.0) L 06/16/22 12:05 MCHC 30.4 g/dL (30.0-36.0) 06/16/22 12:05 RDW 17.3 % (12.1-15.1) H 06/16/22 12:05 Plt Count 264 10^3/cmm (130-400) 06/16/22 12:05 MPV 10.9 fL (7.4-10.4) H 06/16/22 12:05 Neut % (Auto) 56.0 % 06/16/22 12:05 Lymph % (Auto) 32.2 % 06/16/22 12:05 [place] % (Auto) 8.9 % 06/16/22 12:05 Eos % (Auto) 1.8 % 06/16/22 12:05 Baso % (Auto) 0.6 % 06/16/22 12:05 Neut # (Auto) 3.67 10^3/uL (1.8-7.7) 06/16/22 12:05 Lymph # (Auto) 2.1 10^3/uL (0.8-4.8) 06/16/22 12:05 [place] # (Auto) 0.6 10^3/uL (0.2-0.9) 06/16/22 12:05 Eos # (Auto) 0.1 10^3/uL (0.0-0.8) 06/16/22 12:05 Baso # (Auto) 0.0 10^3/uL (0.0-0.1) 06/16/22 12:05 Nucleated RBC % (auto) 0 % 06/16/22 12:05 Nucleated RBCs # 0.0 /100WBC 06/16/22 12:05 PT Cancelled 06/20/22 04:50 INR Cancelled 06/20/22 04:50 Sodium 136 mmol/L (136-145) 06/20/22 04:50 Potassium 4.3 mmol/L (3.5-5.1) 06/20/22 04:50 Chloride 104 mmol/L (98-107) 06/20/22 04:50 Carbon Dioxide 24 mmol/L (22-29) 06/20/22 04:50 Anion Gap 12.3 (5-19) 06/20/22 04:50 BUN 26 mg/dL (6-20) H 06/20/22 04:50 Creatinine 1.5 mg/dL (0.5-0.9) H 06/20/22 04:50 GFR Calculation 36.1 mL/min (90-130) L 06/20/22 04:50 Glucose 111 mg/dL (65-115) 06/20/22 04:50 Calculated Osmolality 287 mOsm/kg (285-295) 06/20/22 04:50 Calcium 9.2 mg/dL (8.5-10.5) 06/20/22 04:50 Magnesium 2.0 mg/dL (1.7-2.3) 06/19/22 01:32 Total Bilirubin 0.2 mg/dL (0.15-1.2) 06/20/22 04:50 Direct Bilirubin 0.20 mg/dL (0.00-0.30) 06/20/22 04:50 AST 53 U/L (0-32) H 06/20/22 04:50 ALT 40 U/L (0-33) H 06/20/22 04:50 Alkaline Phosphatase 123 U/L (35-105) H 06/20/22 04:50 NT-Pro-B Natriuret Pep 190 pg/mL (0-125) H 06/15/22 13:20 Total Protein 6.0 g/dL (6.6-8.7) L 06/20/22 04:50 Albumin 3.3 g/dL (3.5-5.2) L 06/20/22 04:50 Globulin 2.7 g/dL (1.3-4.6) 06/20/22 04:50 Triglycerides 102 mg/dL (0-150) 06/20/22 04:50 Cholesterol 242 mg/dL (0-200) H 06/20/22 04:50 LDL Cholesterol, Calc 163 mg/dL (50-129) H 06/20/22 04:50 HDL Cholesterol 59 mg/dL (60-100) L 06/20/22 04:50 LDL/HDL Ratio 2.76 RATIO (0.00-3.22) 06/20/22 04:50 Cholesterol/HDL Ratio 4.10 mg/dL (0.0-4.40) 06/20/22 04:50 Procedures Performed Renal ultrasound Left heart catheterization Vitals Last Vital Signs Temp 97.7 F 06/20/22 04:30 Pulse 65 06/20/22 08:55 Resp 16 06/20/22 08:51 BP 127/78 06/20/22 08:00 Pulse Ox 96 06/20/22 08:51 O2 Del Method 06/20/22 08:51 Discharge Plan Discharge Patient Disposition: Home Condition: Stable Prescriptions: New atorvastatin 40 mg Tablet 40 mg PO BEDTIME Qty: 90 3RF aspirin 81 mg Tablet,Delayed Release (Dr/Ec) 81 mg PO DAILY Qty: 90 3RF amlodipine 5 mg Tablet 7.5 mg PO DAILY Qty: 45 3RF nitroglycerin 0.4 mg Tablet, Sublingual 0.4 mg sublingual Q5M PRN (Reason: Chest Pain) 25 Days Qty: 6 0RF Continued Trimo-Winslow Jelly 0.025-0.01 % gel See Rx Instructions vaginal .COMPLEX Qty: 113.4 3RF Rx Instructions: one applicator vaginally 2-3 times weekly prn albuterol sulfate [ProAir HFA] 90 mcg/actuation HFA aerosol inhaler 2 puff inhalation QID PRN (Reason: shortness of breath or wheezing) Qty: 8.5 4RF albuterol sulfate 0.63 mg/3 mL solution for nebulization 0.63 mg inhalation Q4H PRN (Reason: shortness of breath or wheezing) Qty: 90 11RF Nurtec ODT 75 mg tablet,disintegrating 75 mg PO DAILY PRN (Reason: Migraine Headache) metoprolol tartrate 50 mg tablet 75 mg PO BID Qty: 225 3RF omeprazole 20 mg capsule,delayed release(DR/EC) 20 mg PO DAILY Qty: 30 4RF levothyroxine [Euthyrox] 88 mcg tablet See Rx Instructions .ROUTE .COMPLEX Qty: 90 0RF Dose Instruction: Take 1 tablet by mouth once daily Rx Instructions: Take 1 tablet by mouth once daily warfarin 1 mg tablet 1 mg PO DIRECTED Protocol: Dose Management Condition: Wednesday Dose/Route: 3 mg Instruction: 1 x 3 mg tablet Condition: Wednesday Dose/Route: 3 mg Instruction: 1 x 3 mg tablet Condition: Wednesday Dose/Route: 2 mg Instruction: 1 x 2 mg tablet Condition: Wednesday Dose/Route: 3 mg Instruction: 1 x 3 mg tablet Condition: Dose/Route: 2 mg Instruction: 1 x 2 mg tablet Condition: Wednesday Dose/Route: 3 mg Instruction: 1 x 3 mg tablet Condition: Wednesday Dose/Route: 2 mg Instruction: 1 x 2 mg tablet Protocol Text: Adjustment Start Date: 06/11/22 INR Value: 2.4 INR Date: 06/11/22 Recheck Date: 06/25/22 Rx Instructions: MUST MAKE AN APPOINTMENT TO BE SEEN PRIOR TO ANY MORE REFILLS warfarin 2 mg tablet 2 mg PO DAILY Qty: 90 3RF Protocol: Dose Management Condition: Wednesday Dose/Route: 3 mg Instruction: 1 x 3 mg tablet Condition: Wednesday Dose/Route: 3 mg Instruction: 1 x 3 mg tablet Condition: Wednesday Dose/Route: 2 mg Instruction: 1 x 2 mg tablet Condition: Wednesday Dose/Route: 3 mg Instruction: 1 x 3 mg tablet Condition: Dose/Route: 2 mg Instruction: 1 x 2 mg tablet Condition: Wednesday Dose/Route: 3 mg Instruction: 1 x 3 mg tablet Condition: Wednesday Dose/Route: 2 mg Instruction: 1 x 2 mg tablet Protocol Text: Adjustment Start Date: 06/11/22 INR Value: 2.4 INR Date: 06/11/22 Recheck Date: 06/25/22 temazepam 30 mg capsule 30 mg PO .qhs Qty: 30 3RF bupropion HCl 300 mg tablet extended release 24 hr See Rx Instructions .ROUTE .COMPLEX Qty: 90 1RF Dose Instruction: TAKE 1 TABLET BY MOUTH ONCE DAILY IN THE MORNING Rx Instructions: TAKE 1 TABLET BY MOUTH ONCE DAILY IN THE MORNING Symbicort 160-4.5 mcg/actuation HFA aerosol inhaler 2 puff inhalation Q12H PRN (Reason: sob) enoxaparin 80 mg/0.8 mL syringe 70 mg SUBCUT DIRECTED 5 Days Qty: 7 1RF Rx Instructions: 0.7mL injection twice daily Discontinued hydrochlorothiazide 50 mg tablet 50 mg PO QAM Qty: 90 3RF diphenhydramine HCl [Benadryl Allergy] 25 mg tablet 50 mg PO DIRECTED PRN (Reason: allergy symptoms) 1 Days Qty: 2 0RF Rx Instructions: Take 50mg (2 tabs) 1 hour prior to LHC for dye allergy prednisone 50 mg tablet 50 mg PO DIRECTED PRN (Reason: allergic reaction) 1 Days Qty: 3 0RF Rx Instructions: Take 50mg (1 tab) 13hrs, 7hrs, & 1hr prior to LHC for dye allergy warfarin 4 mg tablet 4 mg PO DAILY Qty: 30 1RF Protocol: Dose Management Condition: Wednesday Dose/Route: 3 mg Instruction: 1 x 3 mg tablet Condition: Wednesday Dose/Route: 3 mg Instruction: 1 x 3 mg tablet Condition: Wednesday Dose/Route: 2 mg Instruction: 1 x 2 mg tablet Condition: Wednesday Dose/Route: 3 mg Instruction: 1 x 3 mg tablet Condition: Dose/Route: 2 mg Instruction: 1 x 2 mg tablet Condition: Wednesday Dose/Route: 3 mg Instruction: 1 x 3 mg tablet Condition: Wednesday Dose/Route: 2 mg Instruction: 1 x 2 mg tablet Protocol Text: Adjustment Start Date: 06/11/22 INR Value: 2.4 INR Date: 06/11/22 Recheck Date: 06/25/22 warfarin 3 mg tablet 3 mg PO DIRECTED Qty: 30 6RF Protocol: Dose Management Condition: Wednesday Dose/Route: 3 mg Instruction: 1 x 3 mg tablet Condition: Wednesday Dose/Route: 3 mg Instruction: 1 x 3 mg tablet Condition: Wednesday Dose/Route: 2 mg Instruction: 1 x 2 mg tablet Condition: Wednesday Dose/Route: 3 mg Instruction: 1 x 3 mg tablet Condition: Dose/Route: 2 mg Instruction: 1 x 2 mg tablet Condition: Wednesday Dose/Route: 3 mg Instruction: 1 x 3 mg tablet Condition: Wednesday Dose/Route: 2 mg Instruction: 1 x 2 mg tablet Protocol Text: Adjustment Start Date: 06/11/22 INR Value: 2.4 INR Date: 06/11/22 Recheck Date: 06/25/22 Discharge Orders: Discharge Order (Routine); Ordered 06/20/22 Ordered By: Bindu Conway Other Ambulatory Orders: Basic Metabolic Panel (Routine) Timeframe: 5 Days Location: Determined by Patient Ordered By: Bindu Conway Liver Panel (Routine) Timeframe: 5 Days Location: Determined by Patient Ordered By: Bindu Conway Prothrombin Time INR (Routine) Timeframe: 5 Days Location: Determined by Patient Ordered By: Bindu Conway Referrals: Liz Rai FNP [Nurse Practitioner] - 2 weeks ([facility] will contact you to schedule an follow-up appointment in 7 to 10 days. If you haven't heard from them by Wednesday afternoon. Please call ) Discharge Diet: Cardiac Discharge Activity: Limit activity as instructed Patient Instructions: Nitroglycerin (By mouth), Aspirin (By mouth), Amlodipine (By mouth), Atorvastatin (By mouth) (Lipitor), Coronary Artery Disease (DC), Acute Kidney Injury (DC), Left Heart Catheterization (DC), Opioid Safety, Post Angiogram Home Care Instructions Activity Restrictions/Additional Instructions: Do not lift anything more than 5 lbs for 1 week. Keep the site dry and clean No tub bathing or swimming for 1 week. May shower. Take medications as prescribed and follow up as scheduled. Keep well hydrated till your next blood draw at [facility] Take warfarin 3 mg daily and lovenox 70 mg SQ Q12 hr for 3 more days BMP and PT/INR on (06/25/22) Discharge Attestations Time Spent in Discharge Care*: greater than 30 min Specific Discharge Activities: educating patient, educating and/or supporting family/caregiver, documenting/other paperwork and evaluating patient/reviewing data Status at Discharge: Cognitive status at discharge: cognitively intact, Behavioral status at discharge: cooperative, Functional status at discharge: independent ambulation, Overall status at discharge: patient is back to baseline Quality Metrics Clinical Quality Measures [ No reported AMI, CVA or VTE this stay] Coding Level of Care Code Acute Chg FW DC note Diagnoses Exertional shortness of breath R06.02 CAD (coronary artery disease) I25.10 Coronary Disease-Associated Artery/Lesion type: [place] artery Elem vs. transplanted heart: [place] heart Associated angina: without angina Acute kidney injury superimposed on CKD N17.9; N18.9 Essential hypertension I10 Hypothyroidism E03.9 Hypothyroidism type: unspecified
--- NOTE | 2022-06-20 11:29 | PC.NURSE ---
discharge instructions given and explained.pt verb understanding of instructions.security took pt to her car via w/c.pt states her daughter could not pick her up as expected because her child was ill.
== END 2022-06-20 11:30 | disposition home or self-care (01) ==
PROVIDERS: Admitting Provider Internal Medicine Cardiovascular Disease; PCP Family Medicine; Visit Provider Internal Medicine Cardiovascular Disease
DX: R06.02 Shortness of breath (principal); I25.10 Atherosclerotic heart disease of native coronary artery without angina pectoris; N17.9 Acute kidney failure, unspecified; I12.9 Hypertensive chronic kidney disease with stage 1 through stage 4 chronic kidney disease, or unspecified chronic kidney disease; N18.9 Chronic kidney disease, unspecified; E03.9 Hypothyroidism, unspecified; K21.9 Gastro-esophageal reflux disease without esophagitis; E78.5 Hyperlipidemia, unspecified; F41.9 Anxiety disorder, unspecified
CPT/HCPCS: 36415; 80048; 80061; 80076; 83735; 83880; 85025; 85610; 93454; 93571; 93975; 94640; 96360; 96361; 96372; 99152; 99153; C1769; C1887; C1894; G0378; G0379; J1644; J1650; J2250; J3010; J3490; J3535; J7030; J7512; J7613; J7626; Q0163; Q9967

== ENCOUNTER → 2022-06-25 11:50 | Outpatient (BNVA) | payer MEDICAID, SELFPAY | PROVIDERS: PCP Family Medicine; Visit Provider Internal Medicine Cardiovascular Disease | DX: I25.10 Atherosclerotic heart disease of native coronary artery without angina pectoris (principal); R74.01 Elevation of levels of liver transaminase levels; N17.9 Acute kidney failure, unspecified; Z95.2 Presence of prosthetic heart valve | CPT/HCPCS: 80048; 80076 ==

== ENCOUNTER → 2022-07-08 11:20 | Outpatient (BNVA) | payer MEDICAID, SELFPAY | PROVIDERS: PCP Family Medicine; Visit Provider Nurse Practitioner Family | DX: I25.10 Atherosclerotic heart disease of native coronary artery without angina pectoris (principal) | CPT/HCPCS: 80048 ==

== ENCOUNTER → 2022-07-21 13:35 | Outpatient (BNVA) | payer MEDICAID, SELFPAY | PROVIDERS: PCP Family Medicine; Visit Provider Nurse Practitioner Family | DX: R79.89 Other specified abnormal findings of blood chemistry (principal); N18.32 Chronic kidney disease, stage 3b | CPT/HCPCS: 80053; 82043 ==

== ENCOUNTER → 2022-07-28 12:20 | Outpatient (BNVA) | payer MEDICAID, SELFPAY | PROVIDERS: PCP Family Medicine; Visit Provider Internal Medicine Cardiovascular Disease | DX: Z95.2 Presence of prosthetic heart valve (principal) | CPT/HCPCS: 85610 ==

== ENCOUNTER → 2022-08-04 13:19 | Outpatient (BNVA) | payer MEDICAID, SELFPAY | PROVIDERS: PCP Family Medicine; Visit Provider Internal Medicine Cardiovascular Disease | DX: Z79.01 Long term (current) use of anticoagulants (principal) | CPT/HCPCS: 85610 ==

== ENCOUNTER 2022-08-27 10:34 | Outpatient (CLI) | payer MEDICAID, SELFPAY ==
[2022-08-27 11:33] LABS: INR 3.56 (0.83-1.21); Prothrombin Time (Patient) 35.8 Seconds (12.0-15.1)
== END 2022-08-27 10:35 | disposition home or self-care (01) ==
PROVIDERS: PCP Family Medicine; Visit Provider Internal Medicine Cardiovascular Disease
DX: Z95.2 Presence of prosthetic heart valve (principal)
CPT/HCPCS: 36415; 85610

== ENCOUNTER → 2022-09-23 14:29 | Outpatient (BNVA) | payer MEDICAID, SELFPAY | PROVIDERS: PCP Family Medicine; Visit Provider Internal Medicine Cardiovascular Disease | DX: Z95.2 Presence of prosthetic heart valve (principal) | CPT/HCPCS: 85610 ==

== ENCOUNTER → 2022-09-30 11:38 | Outpatient (BNVA) | payer MEDICAID, SELFPAY | PROVIDERS: PCP Family Medicine; Visit Provider Internal Medicine Nephrology | DX: N18.32 Chronic kidney disease, stage 3b (principal); N25.81 Secondary hyperparathyroidism of renal origin; Z95.2 Presence of prosthetic heart valve | CPT/HCPCS: 80069; 81003; 82306; 82310; 83970; 85610 ==

== ENCOUNTER → 2022-10-14 13:29 | Outpatient (BNVA) | payer MEDICAID, SELFPAY | PROVIDERS: PCP Family Medicine; Visit Provider Internal Medicine Cardiovascular Disease | DX: Z95.2 Presence of prosthetic heart valve (principal); Z79.01 Long term (current) use of anticoagulants | CPT/HCPCS: 85610 ==

== ENCOUNTER → 2022-10-21 13:16 | Outpatient (BNVA) | payer MEDICAID, SELFPAY | PROVIDERS: PCP Family Medicine; Visit Provider Internal Medicine Cardiovascular Disease | DX: E78.5 Hyperlipidemia, unspecified (principal); I10 Essential (primary) hypertension; E03.9 Hypothyroidism, unspecified; G47.00 Insomnia, unspecified; K21.9 Gastro-esophageal reflux disease without esophagitis; N18.32 Chronic kidney disease, stage 3b; Z95.2 Presence of prosthetic heart valve | CPT/HCPCS: 80053; 80061; 84443 ==

== ENCOUNTER → 2023-01-18 14:10 | Outpatient (BNVA) | payer MEDICAID, SELFPAY | PROVIDERS: PCP Family Medicine; Visit Provider Nurse Practitioner Family | DX: N18.32 Chronic kidney disease, stage 3b (principal); I25.10 Atherosclerotic heart disease of native coronary artery without angina pectoris; Z95.2 Presence of prosthetic heart valve; I10 Essential (primary) hypertension | CPT/HCPCS: 80048; 83880 ==

== ENCOUNTER 2023-01-29 11:13 | Outpatient (CLI) | payer MEDICAID, SELFPAY ==
--- NOTE | 2023-01-29 11:25 | CT_ITS ---
WS: [id number] LDCT LUNG CANCER SCREENING HISTORY: NICOTINE DEPENDENCE TECHNIQUE: Axial imaging performed from the apices to 1 cm below the costophrenic angles. Coronal and sagittal reformats are submitted with axial MIP series. All CT scans at [facility] use at least one of these dose optimization techniques: automated exposure control; mA and/or kV adjustment per patient size (includes targeted exams where dose is matched to clinical indication); or iterativ e reconstruction. DLP: 56.80 mGy.cm DIvol: Mean CTDIvol: 0.90 (mGy) COMPARISON: Chest CT 05/19/2018 Diagnostic quality: Satisfactory Lungs: Mild chronic hyperinflation from emphysema. Stable since 2018 is a noncalcified 5 mm nodule in the superior segment RIGHT lower lobe. No mass. No pneumonia. No endobronchial lesion. Heart: Normal size heart with no pericardial effusion.. Prior median sternotomy. Other findings: Mild atherosclerosis aorta. Atherosclerotic changes continue into the proximal great vessels. Extensive coronary artery calcifications in the grindstone vessels. Cholelithiasis without acute cholecystitis. No adrenal mass. CT/CT lung screening [id number] IMPRESSION: LUNG-RADS: 2-Benign Appearance or Behavior FOLLOW UP: 12 Month: Continue annual screening with LDCT OTHER FINDINGS (S MODIFIER): None.
== END 2023-01-29 11:14 | disposition home or self-care (01) ==
PROVIDERS: PCP Family Medicine; Visit Provider Internal Medicine
DX: Z12.2 Encounter for screening for malignant neoplasm of respiratory organs (principal); F17.200 Nicotine dependence, unspecified, uncomplicated
CPT/HCPCS: 71271

== ENCOUNTER 2023-02-10 12:32 | Outpatient (CLI) | payer MEDICAID, SELFPAY ==
[2023-02-10 13:05] LABS: INR 2.47 (0.83-1.21); Prothrombin Time (Patient) 27.7 Seconds (12.0-15.1)
== END 2023-02-10 12:33 | disposition home or self-care (01) ==
PROVIDERS: Nurse Practitioner Family; PCP Family Medicine; Visit Provider Internal Medicine Cardiovascular Disease
DX: I25.10 Atherosclerotic heart disease of native coronary artery without angina pectoris (principal)
CPT/HCPCS: 85610

== ENCOUNTER 2023-02-17 10:48 | Outpatient (CLI) | payer MEDICAID, SELFPAY ==
[2023-02-17 11:54] LABS: INR 2.85 (0.83-1.21)
== END 2023-02-17 10:49 | disposition home or self-care (01) ==
LOC: LAB 10:50
PROVIDERS: PCP Family Medicine; Visit Provider Internal Medicine Cardiovascular Disease
DX: Z95.2 Presence of prosthetic heart valve (principal)
CPT/HCPCS: 36415; 85610

== ENCOUNTER → 2023-02-18 14:00 | Outpatient (BNVA) | payer MEDICAID, SELFPAY | PROVIDERS: PCP Family Medicine; Visit Provider Family Medicine | DX: K21.9 Gastro-esophageal reflux disease without esophagitis (principal); F33.9 Major depressive disorder, recurrent, unspecified; I10 Essential (primary) hypertension; E03.9 Hypothyroidism, unspecified; Z79.01 Long term (current) use of anticoagulants; E83.52 Hypercalcemia | CPT/HCPCS: 80053; 82306; 83036; 84439; 84443; 85025 ==

== ENCOUNTER → 2023-03-01 13:08 | Outpatient (BNVA) | payer MEDICAID, SELFPAY | PROVIDERS: PCP Family Medicine; Visit Provider Specialist | DX: M25.551 Pain in right hip (principal); Z96.641 Presence of right artificial hip joint | CPT/HCPCS: 73502 ==

== ENCOUNTER → 2023-03-04 14:41 | Outpatient (BNVA) | payer MEDICAID, SELFPAY | PROVIDERS: PCP Family Medicine; Visit Provider Internal Medicine Cardiovascular Disease | DX: Z79.01 Long term (current) use of anticoagulants (principal) | CPT/HCPCS: 85610 ==

== ENCOUNTER 2023-03-16 08:07 | Outpatient (CLI) | payer MEDICAID, SELFPAY ==
[2023-03-16 09:08] LABS: Creatinine Urine, Random 146 mg/dL (28-217); Microalbum Creatinine Ratio Ur 14 mg/dL (0-20); Microalbumin Random Urine 2 ug/dL (0-20)
[2023-03-16 09:25] LABS: Albumin Level 3.9 g/dL (3.5-5.2); Anion Gap 13.3 (5-19); Blood Urea Nitrogen 12 mg/dL (6-20); Calcium 8.8 mg/dL (8.5-10.5); Calcium 8.9 mg/dL (8.5-10.5); Carbon Dioxide 24 mmol/L (22-29); Chloride 106 mmol/L (98-107); Glomerular Filtration Rate 33.3 mL/min (90-130); Glucose 68 mg/dL (65-115); Phosphorus 3.4 mg/dL (2.5-4.5); Potassium 4.3 mmol/L (3.5-5.1); Sodium 139 mmol/L (136-145)
[2023-03-16 09:32] LABS: Parathyroid Hormone 71.9 pg/mL (15-65)
[2023-03-16 09:41] LABS: 25 Hydroxy Vitamin D 32 ng/mL (30-100)
== END 2023-03-16 08:08 | disposition home or self-care (01) ==
PROVIDERS: PCP Family Medicine; Visit Provider Internal Medicine Nephrology
DX: N18.32 Chronic kidney disease, stage 3b (principal)
CPT/HCPCS: 80069; 82044; 82306; 82310; 83970

== ENCOUNTER 2023-03-18 08:50 | Outpatient (CLI) | payer MEDICAID, SELFPAY ==
--- NOTE | 2023-03-18 09:30 | NM_ITS ---
WS: [id number] NUCLEAR MEDICINE BONE SCAN 3 phase Radiopharmaceutical: 25.5 Tc-99m MDP mCi IV Injection site: Antecubital Postinjection imaging delay: 3 hr CLINICAL INFORMATION: painful rt hip replacement COMPARISON: Radiograph 03/01/2023 FINDINGS: Prior postoperative changes right JAYCE. Normal blood flow and blood pool images. Normal delayed bone s can images. No evidence of hardware loosening or infection right hip. Degenerative type uptake in both ankles and AC joints. Patchy serpiginous uptake in the distal femurs and proximal tibia suspicious for bone infarcts. Kidneys: Normal. Other findings: None. IMPRESSION: 1. No evidence of right hip JAYCE loosening or infection. 2. Serpiginous radiotracer activity on the bone scan images involving the distal femurs and proximal tibia about the knee bilaterally in a symmetric fashion suspicious for bony infarcts.
--- NOTE | 2023-03-18 11:30 | XR_ITS ---
WS: [id number] KNEE LEFT TECHNIQUE: 3 views of the left knee CLINICAL INFORMATION: BONE SCAN COMPARISON COMPARISON: None. FINDINGS: Patchy sclerotic changes involving the distal femur and proximal tibia as seen on the recent bone sca n suspicious for bony infarcts. No acute fractures. Normal patella. No significant joint effusion. IMPRESSION: Patchy sclerotic changes involving the distal femur and proximal tibia as seen on the recent bone sca n suspicious for bony infarcts. Kellgren-Alex Classification: grade 2 (minimal): definite osteophytes and possible joint space na rrowing
--- NOTE | 2023-03-18 11:30 | XR_ITS ---
WS: [id number] KNEE RIGHT TECHNIQUE: 3 views of the right knee CLINICAL INFORMATION: BONE SCAN COMPARISON COMPARISON: None. FINDINGS: Patchy sclerotic changes involving the distal femur and proximal tibia suspicious for bone infarct as seen on the concurrent bone scan. No significant joint effusion. Patella appears normal. Mild degene rative changes. IMPRESSION: Patchy sclerotic changes involving the distal femur and proximal tibia suspicious for bone infarcts a s seen on the concurrent bone scan. Kellgren-Alex Classification: grade 2 (minimal): definite osteophytes and possible joint space na rrowing
== END 2023-03-18 08:51 | disposition home or self-care (01) ==
LOC: RAD 08:51
PROVIDERS: PCP Family Medicine; Visit Provider Specialist
DX: M25.551 Pain in right hip (principal); M89.9 Disorder of bone, unspecified; Z96.641 Presence of right artificial hip joint
CPT/HCPCS: 73562; 78315; A9561

== ENCOUNTER 2023-03-26 13:47 | Outpatient (CLI) | payer MEDICAID, SELFPAY ==
[2023-03-26 14:25] LABS: INR 2.05 (0.8-1.2)
== END 2023-03-26 13:48 | disposition home or self-care (01) ==
LOC: LAB 13:50
PROVIDERS: PCP Family Medicine; Visit Provider Internal Medicine Cardiovascular Disease
DX: Z79.01 Long term (current) use of anticoagulants (principal)
CPT/HCPCS: 36415; 85610

== ENCOUNTER 2023-04-06 08:00 | Outpatient (RCR) | payer MEDICAID, SELFPAY ==
[2023-03-11 08:55] LABS: INR 1.59 (0.83-1.21); Prothrombin Time (Patient) 19.5 Seconds (12.0-15.1)
[2023-03-19 15:32] LABS: INR 2.22 (0.8-1.2)
[2023-04-06 08:36] LABS: INR 2.04 (0.8-1.2)
== END 2023-04-08 23:59 | disposition home or self-care (01) ==
LOC: LAB 08:00
PROVIDERS: PCP Family Medicine; Visit Provider Internal Medicine Cardiovascular Disease
DX: Z79.01 Long term (current) use of anticoagulants (principal)
CPT/HCPCS: 36415; 85610

== ENCOUNTER 2023-04-15 09:18 | Outpatient (CLI) | payer MEDICAID, SELFPAY | END 2023-04-15 09:19 | disposition home or self-care (01) | LOC: LAB 09:20 | PROVIDERS: PCP Family Medicine; Visit Provider Internal Medicine Cardiovascular Disease | DX: Z79.01 Long term (current) use of anticoagulants (principal) | CPT/HCPCS: 36415; 85610 ==

== ENCOUNTER 2023-06-02 15:02 | Outpatient (CLI) | payer MEDICAID, SELFPAY ==
[2023-06-02 15:57] LABS: INR 2.38 (0.8-1.2)
== END 2023-06-02 15:03 | disposition home or self-care (01) ==
PROVIDERS: PCP Family Medicine; Visit Provider Internal Medicine Cardiovascular Disease
DX: Z79.01 Long term (current) use of anticoagulants (principal)
CPT/HCPCS: 36415; 85610

== ENCOUNTER 2023-06-10 08:20 | Outpatient (RCR) | payer MEDICAID, SELFPAY | END 2023-07-08 23:59 | disposition home or self-care (01) | LOC: CR 08:20 | PROVIDERS: PCP Family Medicine; Referring Provider Internal Medicine Cardiovascular Disease; Visit Provider Internal Medicine Cardiovascular Disease | DX: Z95.1 Presence of aortocoronary bypass graft (principal) | CPT/HCPCS: 93798 ==

== ENCOUNTER 2023-06-18 13:29 | Outpatient (CLI) | payer MEDICAID, SELFPAY ==
[2023-06-18 14:06] LABS: INR 2.41 (0.8-1.2)
[2023-06-18 14:19] LABS: Alanine Aminotransferase 8 U/L (0-33); Albumin Level 3.9 g/dL (3.5-5.2); Alkaline Phosphatase 188 U/L (35-105); Anion Gap 15.5 (5-19); Aspartate Amino Transferase 11 U/L (0-32); Blood Urea Nitrogen 17 mg/dL (6-20); Calcium 8.8 mg/dL (8.5-10.5); Carbon Dioxide 20 mmol/L (22-29); Chloride 109 mmol/L (98-107); Globulin 2.8 g/dL (1.3-4.6); Glomerular Filtration Rate 33.3 mL/min (90-130); Glucose 71 mg/dL (65-115); Osmolality Calculated 290 mOsm/kg (285-295); Potassium 4.5 mmol/L (3.5-5.1); Sodium 140 mmol/L (136-145); Thyroid Stimulating Hormone 22.89 uIU/mL (0.27-4.20); Total Bilirubin 0.3 mg/dL (0.15-1.2); Total Protein 6.7 g/dL (6.6-8.7)
== END 2023-06-18 13:30 | disposition home or self-care (01) ==
LOC: LAB 13:30
PROVIDERS: Internal Medicine Cardiovascular Disease; PCP Family Medicine; Visit Provider Family Medicine
DX: I25.10 Atherosclerotic heart disease of native coronary artery without angina pectoris (principal); R06.02 Shortness of breath; Z95.1 Presence of aortocoronary bypass graft; E03.9 Hypothyroidism, unspecified; Z79.01 Long term (current) use of anticoagulants
CPT/HCPCS: 36415; 80053; 84443; 85610

== ENCOUNTER 2023-07-09 09:51 | Outpatient (RCR) | payer MEDICAID, SELFPAY | END 2023-08-08 23:59 | disposition home or self-care (01) | LOC: CR 09:51 | PROVIDERS: PCP Internal Medicine Cardiovascular Disease; Referring Provider Internal Medicine Cardiovascular Disease; Visit Provider Internal Medicine Cardiovascular Disease | DX: Z95.1 Presence of aortocoronary bypass graft (principal) | CPT/HCPCS: 93798 ==

== ENCOUNTER 2023-07-12 13:48 | Outpatient (CLI) | payer MEDICAID, SELFPAY | END 2023-07-12 13:49 | disposition home or self-care (01) | LOC: LAB 13:52 | PROVIDERS: PCP Internal Medicine Cardiovascular Disease; Visit Provider Internal Medicine Cardiovascular Disease | DX: Z79.01 Long term (current) use of anticoagulants (principal) | CPT/HCPCS: 36415; 85610 ==

== ENCOUNTER 2023-08-10 09:20 | Outpatient (RCR) | payer MEDICAID, SELFPAY | END 2023-09-08 23:59 | disposition home or self-care (01) | LOC: CR 09:20 | PROVIDERS: PCP Family Medicine; Referring Provider Internal Medicine Cardiovascular Disease; Visit Provider Internal Medicine Cardiovascular Disease | DX: Z95.1 Presence of aortocoronary bypass graft (principal) | CPT/HCPCS: 93798 ==

== ENCOUNTER 2023-09-07 12:41 | Outpatient (CLI) | payer MEDICAID, SELFPAY ==
[2023-09-07 13:07] LABS: INR 1.98 (0.83-1.21); Prothrombin Time (Patient) 23.3 Seconds (12.0-15.1)
== END 2023-09-07 12:42 | disposition home or self-care (01) ==
LOC: LAB 12:41
PROVIDERS: Internal Medicine; PCP Family Medicine; Visit Provider Internal Medicine Cardiovascular Disease
DX: Z95.2 Presence of prosthetic heart valve (principal)
CPT/HCPCS: 36415; 85610

== ENCOUNTER 2023-09-09 10:32 | Outpatient (RCR) | payer MEDICAID, SELFPAY | END 2023-10-07 23:59 | disposition home or self-care (01) | LOC: CR 10:32 | PROVIDERS: PCP Family Medicine; Referring Provider Internal Medicine Cardiovascular Disease; Visit Provider Internal Medicine Cardiovascular Disease | DX: Z95.1 Presence of aortocoronary bypass graft (principal) | CPT/HCPCS: 93798 ==

== ENCOUNTER 2023-09-15 11:33 | Outpatient (CLI) | payer MEDICAID, SELFPAY ==
[2023-09-15 12:31] LABS: INR 2.68 (0.83-1.21); Prothrombin Time (Patient) 29.5 Seconds (12.0-15.1)
== END 2023-09-15 11:34 | disposition home or self-care (01) ==
LOC: LAB 11:35
PROVIDERS: PCP Family Medicine; Visit Provider Internal Medicine Cardiovascular Disease
DX: Z95.2 Presence of prosthetic heart valve (principal)
CPT/HCPCS: 36415; 85610

== ENCOUNTER 2023-09-29 13:58 | Outpatient (CLI) | payer MEDICAID, SELFPAY ==
[2023-09-29 14:21] LABS: Basophils % 0.4 %; Eosinophils # 0.2 10^3/uL (0.0-0.8); Eosinophils % 2.8 %; Hematocrit 39.5 % (36-47); Lymphocytes # 2.4 10^3/uL (0.8-4.8); Lymphocytes % 35.4 %; Mean Corpuscular HGB Conc 29.1 g/dL (30-55); Mean Corpuscular Hemoglobin 21.7 pg (27-33); Mean Corpuscular Volume 74.5 fl (85-98); Mean Platelet Volume 9.7 fL (7.4-10.4); Monocytes # 0.4 10^3/uL (0.2-0.9); Monocytes % 6.3 %; Neutrophils # 3.76 10^3/uL (1.8-7.7); Neutrophils % 54.8 %; Nucleated Red Blood Cells % 0 %; Platelet Count 302 10^3/cmm (157-399); Red Cell Distribution Width 20.2 % (12.1-15.1); White Blood Count 6.86 10^3/uL (3.29-11.43)
[2023-09-29 14:33] LABS: Prothrombin Time (Patient) 31.5 Seconds (12.0-15.1)
[2023-09-29 14:39] LABS: Albumin Level 3.9 g/dL (3.5-5.2); Anion Gap 11.3 (5-19); Blood Urea Nitrogen 22 mg/dL (6-20); Calcium 8.4 mg/dL (8.5-10.5); Carbon Dioxide 24 mmol/L (22-29); Chloride 106 mmol/L (98-107); Glomerular Filtration Rate 31.1 mL/min (90-130); Glucose 90 mg/dL (65-115); Phosphorus 3.6 mg/dL (2.5-4.5); Potassium 4.3 mmol/L (3.5-5.1); Sodium 137 mmol/L (136-145)
[2023-09-29 14:50] LABS: Calcium 8.4 mg/dL (8.5-10.5)
[2023-09-29 14:55] LABS: 25 Hydroxy Vitamin D 25 ng/mL (30-100)
[2023-09-29 14:58] LABS: Parathyroid Hormone 92.7 pg/mL (15-65)
== END 2023-09-29 13:59 | disposition home or self-care (01) ==
PROVIDERS: Absent Provider Internal Medicine; PCP Family Medicine; Visit Provider Internal Medicine Nephrology
DX: N18.32 Chronic kidney disease, stage 3b (principal); Z95.2 Presence of prosthetic heart valve
CPT/HCPCS: 36415; 80069; 82306; 82310; 83970; 85025; 85610

== ENCOUNTER 2023-10-06 11:39 | Outpatient (CLI) | payer MEDICAID, SELFPAY | END 2023-10-06 11:40 | disposition home or self-care (01) | LOC: LAB 11:40 | PROVIDERS: PCP Family Medicine; Visit Provider Internal Medicine | DX: Z95.2 Presence of prosthetic heart valve (principal) | CPT/HCPCS: 36415; 85610 ==

== ENCOUNTER 2023-10-06 12:09 | Outpatient (CLI) | payer MEDICAID, SELFPAY ==
[2023-10-06 13:06] LABS: Bilirubin Urine Neg (Negative); Blood Urine Neg (Negative); Glucose Urine UA 4+ (Normal); Ketones Urine Negative (Negative); Leukocyte Esterase Urine Trace (Negative); Nitrate Urine Negative (Negative); Protein Urine Neg (Negative); Specific Gravity, Urine 1.015 (1.005-1.030); Urine Appearance SL Hazy (CLEAR); Urine Color Yellow (Yellow); Urobilinogen Urine Norm (Negative); pH Urine 5 (5-7)
[2023-10-06 13:12] LABS: Add Urine Culture? No; Bacteria Urine TRACE /hpf; RBC Urine 0-4 /hpf (0-2); Squamous Epithelial Cell Urine 0-4 /hpf (0-5); Transitional Epi Cells Urine 0-4 /hpf
[2023-10-06 13:20] LABS: Creatinine Urine, Random 142 mg/dL (28-217); Microalbum Creatinine Ratio Ur 7 mg/dL (0-20); Microalbumin Random Urine 1 ug/dL (0-20)
[2023-10-07 15:04] LABS: UPRO/UCREAT Ratio 0.14 mg/mg CR; Urine Creatinine 153 mg/dL (28-217); Urine Protein Random 22 mg/dL
== END 2023-10-06 12:10 | disposition home or self-care (01) ==
LOC: LAB 12:10
PROVIDERS: PCP Family Medicine; Visit Provider Registered Nurse
DX: N18.32 Chronic kidney disease, stage 3b (principal)
CPT/HCPCS: 81001; 82044; 82570; 84156

== ENCOUNTER 2023-10-13 13:41 | Outpatient (CLI) | payer MEDICAID, SELFPAY ==
[2023-10-13 14:35] LABS: INR 2.81 (0.83-1.21); Prothrombin Time (Patient) 30.6 Seconds (12.0-15.1)
== END 2023-10-13 13:42 | disposition home or self-care (01) ==
PROVIDERS: Internal Medicine; PCP Family Medicine; Visit Provider Internal Medicine Cardiovascular Disease
DX: Z95.2 Presence of prosthetic heart valve (principal)
CPT/HCPCS: 85610

== ENCOUNTER 2023-10-28 13:18 | Outpatient (RCR) | payer MEDICAID, SELFPAY ==
[2023-10-28 13:55] LABS: Prothrombin Time (Patient) 34.8 Seconds (12.0-15.1)
== END 2023-11-07 23:59 | disposition home or self-care (01) ==
LOC: LAB 13:18
PROVIDERS: Nurse Practitioner Family; PCP Family Medicine; Visit Provider Internal Medicine Cardiovascular Disease
DX: Z79.01 Long term (current) use of anticoagulants (principal)
CPT/HCPCS: 85610

== ENCOUNTER 2023-11-01 12:42 | Outpatient (CLI) | payer MEDICAID, SELFPAY ==
--- NOTE | 2023-11-01 12:46 | US_ITS ---
WS: [id number] ULTRASOUND RENAL TECHNIQUE: Ultrasound examination of both kidneys. CLINICAL INFORMATION: R FLANK PAIN COMPARISON: 2015 FINDINGS: RIGHT: Atrophic RIGHT kidney. Echogenicity: Normal. Cortical thickness: 0.4 cm Hydronephrosis: None. Perinephric fluid: None. Right kidney measures: 4.7 cm x 2.4 cm x 2.7 cm. LEFT: Left kidney is normal in size and appearance. Echogenicity: Normal. Cortical thickness: 1.4 cm; Normal. Hydronephrosis: None. Perinephric fluid: None. Left kidney measures: 10.5 cm x 3.4 cm x 5.9 cm. Normal visualized aorta. IMPRESSION: 1. No hydronephrosis in either kidney. 2. Atrophic RIGHT kidney appears progressed since 2014. 3. Normal LEFT kidney. 4. Normal bladder.
== END 2023-11-01 12:43 | disposition home or self-care (01) ==
LOC: RAD 12:43
PROVIDERS: PCP Family Medicine; Visit Provider Internal Medicine Nephrology
DX: R10.9 Unspecified abdominal pain (principal); N26.1 Atrophy of kidney (terminal)
CPT/HCPCS: 76770

== ENCOUNTER 2023-11-22 14:20 | Outpatient (RCR) | payer MEDICAID, SELFPAY ==
[2023-11-22 14:52] LABS: INR 2.85 (0.8-1.2)
== END 2023-12-07 23:59 | disposition home or self-care (01) ==
LOC: CR 14:20
PROVIDERS: PCP Family Medicine; Referring Provider Internal Medicine Cardiovascular Disease; Visit Provider Internal Medicine Cardiovascular Disease
DX: Z95.1 Presence of aortocoronary bypass graft (principal)
CPT/HCPCS: 36415; 85610

== ENCOUNTER 2024-01-04 13:09 | Outpatient (CLI) | payer MEDICAID, SELFPAY ==
[2024-01-04 15:01] LABS: INR 2.94 (0.8-1.2)
== END 2024-01-04 13:10 | disposition home or self-care (01) ==
LOC: LAB 13:10
PROVIDERS: PCP Family Medicine; Visit Provider Internal Medicine
DX: Z79.01 Long term (current) use of anticoagulants (principal); Z95.2 Presence of prosthetic heart valve
CPT/HCPCS: 36415; 85610

== ENCOUNTER → 2024-03-01 13:38 | Outpatient (BNVA) | payer MEDICAID, SELFPAY | PROVIDERS: PCP Family Medicine; Visit Provider Internal Medicine Cardiovascular Disease | DX: I25.10 Atherosclerotic heart disease of native coronary artery without angina pectoris (principal); Z95.2 Presence of prosthetic heart valve; I12.9 Hypertensive chronic kidney disease with stage 1 through stage 4 chronic kidney disease, or unspecified chronic kidney disease; N18.32 Chronic kidney disease, stage 3b; E03.9 Hypothyroidism, unspecified; E78.5 Hyperlipidemia, unspecified; R06.02 Shortness of breath; Z79.01 Long term (current) use of anticoagulants; Z95.1 Presence of aortocoronary bypass graft; G43.009 Migraine without aura, not intractable, without status migrainosus; J44.9 Chronic obstructive pulmonary disease, unspecified; Z87.891 Personal history of nicotine dependence | CPT/HCPCS: 85610; 99214 ==

== ENCOUNTER → 2024-03-17 15:34 | Outpatient (BNVA) | payer MEDICAID, SELFPAY | PROVIDERS: PCP Family Medicine; Visit Provider Family Medicine | DX: I10 Essential (primary) hypertension (principal); E78.5 Hyperlipidemia, unspecified; E03.9 Hypothyroidism, unspecified | CPT/HCPCS: 80053; 80061; 83036; 84439; 84443; 84481; 85025 ==

== ENCOUNTER 2024-04-13 14:53 | Outpatient (CLI) | payer MEDICAID, SELFPAY ==
[2024-04-13 15:29] LABS: INR 1.86 (0.83-1.21); Prothrombin Time (Patient) 22.1 Seconds (12.0-15.1)
== END 2024-04-13 14:54 | disposition home or self-care (01) ==
LOC: LAB 14:54
PROVIDERS: Internal Medicine Cardiovascular Disease; PCP Family Medicine; Visit Provider Internal Medicine
DX: Z95.2 Presence of prosthetic heart valve (principal)
CPT/HCPCS: 36415; 85610

== ENCOUNTER → 2024-04-26 11:00 | Outpatient (BNVA) | payer MEDICAID, SELFPAY | PROVIDERS: PCP Family Medicine; Visit Provider Internal Medicine Cardiovascular Disease | DX: I80.9 Phlebitis and thrombophlebitis of unspecified site (principal) | CPT/HCPCS: 85610 ==

== ENCOUNTER → 2024-05-04 14:36 | Outpatient (BNVA) | payer MEDICAID, SELFPAY | PROVIDERS: PCP Family Medicine; Visit Provider Internal Medicine Cardiovascular Disease | DX: Z95.2 Presence of prosthetic heart valve (principal) | CPT/HCPCS: 85610 ==

== ENCOUNTER → 2024-05-29 13:27 | Outpatient (BNVA) | payer MEDICAID, SELFPAY | PROVIDERS: PCP Family Medicine; Visit Provider Internal Medicine Cardiovascular Disease | DX: Z79.01 Long term (current) use of anticoagulants (principal) | CPT/HCPCS: 85610 ==

== ENCOUNTER → 2024-07-13 13:29 | Outpatient (BNVA) | payer MEDICAID, SELFPAY | PROVIDERS: PCP Family Medicine; Visit Provider Internal Medicine Cardiovascular Disease | DX: Z95.2 Presence of prosthetic heart valve (principal) | CPT/HCPCS: 85610 ==

== ENCOUNTER → 2024-07-21 11:46 | Outpatient (BNVA) | payer MEDICAID, SELFPAY | PROVIDERS: PCP Family Medicine; Visit Provider Internal Medicine Cardiovascular Disease | DX: Z95.2 Presence of prosthetic heart valve (principal) | CPT/HCPCS: 85610 ==

== ENCOUNTER 2024-08-04 14:51 | Outpatient (CLI) | payer MEDICAID, SELFPAY | END 2024-08-04 14:52 | disposition home or self-care (01) | LOC: LAB 14:58 | PROVIDERS: PCP Family Medicine; Visit Provider Internal Medicine Cardiovascular Disease | DX: Z95.2 Presence of prosthetic heart valve (principal) | CPT/HCPCS: 85610 ==

== ENCOUNTER → 2024-08-31 09:25 | Outpatient (BNVA) | payer MEDICAID, SELFPAY | PROVIDERS: PCP Family Medicine; Visit Provider Nurse Practitioner Family | DX: I25.10 Atherosclerotic heart disease of native coronary artery without angina pectoris (principal); Z95.2 Presence of prosthetic heart valve; I12.9 Hypertensive chronic kidney disease with stage 1 through stage 4 chronic kidney disease, or unspecified chronic kidney disease; N18.32 Chronic kidney disease, stage 3b; E78.5 Hyperlipidemia, unspecified; R06.02 Shortness of breath; Z79.01 Long term (current) use of anticoagulants; Z95.1 Presence of aortocoronary bypass graft; G43.009 Migraine without aura, not intractable, without status migrainosus; J44.9 Chronic obstructive pulmonary disease, unspecified; Z87.891 Personal history of nicotine dependence | CPT/HCPCS: 99213 ==

== ENCOUNTER → 2024-09-06 15:08 | Outpatient (BNVA) | payer MEDICAID, SELFPAY | PROVIDERS: PCP Family Medicine; Visit Provider Internal Medicine Cardiovascular Disease | DX: Z95.2 Presence of prosthetic heart valve (principal) | CPT/HCPCS: 85610 ==

== ENCOUNTER 2024-09-11 15:35 | Outpatient (CLI) | payer MEDICAID, SELFPAY ==
[2024-09-11 16:31] LABS: INR 1.84 (0.8-1.2)
== END 2024-09-11 15:36 | disposition home or self-care (01) ==
LOC: LAB 15:38
PROVIDERS: PCP Family Medicine; Visit Provider Internal Medicine Cardiovascular Disease
DX: Z95.2 Presence of prosthetic heart valve (principal)
CPT/HCPCS: 36415; 85610

== ENCOUNTER 2024-09-18 15:19 | Outpatient (CLI) | payer MEDICAID, SELFPAY ==
[2024-09-18 15:47] LABS: Basophils # 0.1 10^3/uL (0.0-0.1); Basophils % 0.5 %; Eosinophils # 0.2 10^3/uL (0.0-0.8); Eosinophils % 1.5 %; Hematocrit 45.1 % (36-47); Lymphocytes # 3.2 10^3/uL (0.8-4.8); Lymphocytes % 32.2 %; Mean Corpuscular HGB Conc 29.7 g/dL (30-55); Mean Corpuscular Hemoglobin 23.6 pg (27-33); Mean Corpuscular Volume 79.5 fl (85-98); Mean Platelet Volume 10.9 fL (7.4-10.4); Monocytes # 0.7 10^3/uL (0.2-0.9); Monocytes % 7.1 %; Neutrophils # 5.74 10^3/uL (1.8-7.7); Neutrophils % 58.3 %; Nucleated Red Blood Cells % 0 %; Platelet Count 274 10^3/cmm (157-399); Red Blood Count 5.67 10^6/uL (3.85-5.65); Red Cell Distribution Width 20.7 % (12.1-15.1); White Blood Count 9.85 10^3/uL (3.29-11.43)
[2024-09-18 15:58] LABS: INR 3.35 (0.83-1.21); Prothrombin Time (Patient) 35.7 Seconds (12.0-15.1)
[2024-09-18 16:04] LABS: Albumin Level 4.3 g/dL (3.5-5.2); Anion Gap 13.3 (5-19); Blood Urea Nitrogen 18 mg/dL (6-20); Calcium 9.2 mg/dL (8.5-10.5); Calcium 9.3 mg/dL (8.5-10.5); Carbon Dioxide 25 mmol/L (22-29); Chloride 108 mmol/L (98-107); Glomerular Filtration Rate 35.8 mL/min (90-130); Glucose 111 mg/dL (65-115); Phosphorus 3.6 mg/dL (2.5-4.5); Potassium 4.3 mmol/L (3.5-5.1); Sodium 142 mmol/L (136-145)
[2024-09-18 16:05] LABS: Slide Review Slide Review Perform
[2024-09-18 16:11] LABS: Parathyroid Hormone 155.2 pg/mL (15-65)
[2024-09-18 16:19] LABS: 25 Hydroxy Vitamin D 21 ng/mL (30-100)
[2024-09-18 17:03] LABS: Urine Creatinine 91 mg/dL (28-217); Urine Protein Random 8 mg/dL
[2024-09-18 17:04] LABS: UPRO/UCREAT Ratio 0.09 mg/mg CR
== END 2024-09-18 15:20 | disposition home or self-care (01) ==
LOC: LAB 15:21
PROVIDERS: Absent Provider Registered Nurse; PCP Family Medicine; Visit Provider Internal Medicine Cardiovascular Disease
DX: N18.32 Chronic kidney disease, stage 3b (principal); Z95.2 Presence of prosthetic heart valve; E55.9 Vitamin D deficiency, unspecified; Z79.01 Long term (current) use of anticoagulants
CPT/HCPCS: 36415; 80069; 82306; 82310; 82570; 83970; 84156; 85025; 85610

== ENCOUNTER 2024-10-19 10:42 | Outpatient (CLI) | payer MEDICAID, SELFPAY ==
--- NOTE | 2024-10-19 10:47 | USCV_ITS ---
Danielle Nix Age: 59 Gender: F : 1965 Exam Date: 10/19/2024 11:09 Ordering Phys: Melissa Montero NP Technologist: ANUPAMA Exam Location[place] [facility] [place] Indication: Aortic Valve Replacement BP: 148 / 81 HR: 56 Rhythm: Sinus Technical Quality: Adequate MEASUREMENTS (Male / Female) Normal Values 2D ECHO LV Diastolic Diameter PLAX 4.6 cm 4.2 - 5.9 / 3.9 - 5.3 cm IVS Diastolic Thickness 1.5 cm 0.6 - 1.0 / 0.6 - 0.9 cm IVS Systolic Thickness 1.3 cm LVPW Diastolic Thickness 1.3 cm 0.6 - 1.0 / 0.6 - 0.9 cm LVPW Systolic Thickness 1.9 cm LVOT Diameter 1.9 cm LV Ejection Fraction 2D Teich 58.4 % LV Ejection Fraction MOD 4C 60.4 % LV Ejection Fraction MOD 2C 70.0 % LV Ejection Fraction 2C AL 71.0 % LA Diameter 3.1 cm RA Systolic Volume 4C AL 16.0 ml RA Systolic Volume 4C MOD 15.7 ml LA Sys Volume AL 36.0 cm cubed LA Sys Volume Index AL 18.4 cm cubed/m squared Aorta at Sinotubular Diameter 2.5 cm IVC Diameter 1.8 cm M-MODE LA Ao Ratio MM 1.9 AV Cusp Separation MM 1.1 cm DOPPLER AV Peak Velocity 219.7 cm/s LVOT Peak Velocity 96.0 cm/s AV Area Cont Eq vti 1.4 cm squared AV Area Cont Eq pk 1.3 cm squared MV Peak Velocity 112.0 cm/s MV Area PHT 3.0 cm squared Mitral E to A Ratio 1.1 TR Peak Velocity 202.0 cm/s TR Peak Gradient 16.3 mmHg TV Peak E Velocity 68.0 cm/s PV Peak Velocity 85.0 cm/s FINDINGS Left Ventricle Normal left ventricular size, systolic function and wall thickness, with no regional wall motion abnormalities. Left ventricular ejection fraction is estimated at 55 %. Grade II/IV diastolic dysfunction, moderately elevated filling pressures. Right Ventricle The right ventricle is normal in size and function. Right Atrium The right atrium is normal in size. Left Atrium Moderately increased left atrial size. Mitral Valve Moderately thickened mitral valve. No mitral valve stenosis. Mild mitral valve regurgitation. Aortic Valve Structurally normal aortic valve without significant sclerosis or stenosis. There is no aortic regurgitation. Tricuspid Valve Structurally normal tricuspid valve without significant stenosis or regurgitation. Pulmonary artery systolic pressure is normal. Pulmonic Valve Structurally normal pulmonic valve without significant stenosis. There is no pulmonic regurgitation. Pericardium Normal pericardium without effusion. Aorta Normal ascending aorta dimension. IVC The inferior vena cava appears normal. CONCLUSIONS Normal left ventricular size, systolic function and wall thickness, with no regional wall motion abnormalities. Left ventricular ejection fraction is estimated at 55 %. Grade II/IV diastolic dysfunction, moderately elevated filling pressures. Moderately increased left atrial size. Moderately thickened mitral valve. No mitral valve stenosis. Mild mitral valve regurgitation. There is no pericardial effusion. Right atrial pressure is around 5 mm of mercury. Óscar García MD (Electronically Signed) Final Date: 27 October 2024 10:49 S
== END 2024-10-19 10:43 | disposition home or self-care (01) ==
PROVIDERS: PCP Family Medicine; Visit Provider Nurse Practitioner Family
DX: Z95.2 Presence of prosthetic heart valve (principal); R93.1 Abnormal findings on diagnostic imaging of heart and coronary circulation; I51.7 Cardiomegaly; I34.0 Nonrheumatic mitral (valve) insufficiency
CPT/HCPCS: 93306

== ENCOUNTER → 2024-10-24 13:56 | Outpatient (BNVA) | payer MEDICAID, SELFPAY | PROVIDERS: PCP Family Medicine; Visit Provider Internal Medicine Cardiovascular Disease | DX: I25.10 Atherosclerotic heart disease of native coronary artery without angina pectoris (principal); Z79.01 Long term (current) use of anticoagulants; E78.2 Mixed hyperlipidemia; I12.9 Hypertensive chronic kidney disease with stage 1 through stage 4 chronic kidney disease, or unspecified chronic kidney disease; N18.9 Chronic kidney disease, unspecified; J44.9 Chronic obstructive pulmonary disease, unspecified; Z95.2 Presence of prosthetic heart valve; Z95.5 Presence of coronary angioplasty implant and graft; Z87.891 Personal history of nicotine dependence | CPT/HCPCS: 99214 ==

== ENCOUNTER → 2024-10-24 16:22 | Outpatient (BNVA) | payer MEDICAID, SELFPAY | PROVIDERS: PCP Family Medicine; Visit Provider Internal Medicine Cardiovascular Disease | DX: Z95.2 Presence of prosthetic heart valve (principal) | CPT/HCPCS: 85610 ==

== ENCOUNTER 2024-10-27 08:47 | Outpatient (RCR) | payer MEDICAID, SELFPAY | END 2024-11-06 23:59 | disposition home or self-care (01) | LOC: CR 08:47 | PROVIDERS: PCP Family Medicine; Referring Provider Internal Medicine; Visit Provider Internal Medicine | DX: J44.9 Chronic obstructive pulmonary disease, unspecified (principal) | CPT/HCPCS: 93798 ==

== ENCOUNTER → 2024-10-30 13:00 | Outpatient (BNVA) | payer MEDICAID, SELFPAY | PROVIDERS: PCP Family Medicine; Visit Provider Family Medicine | DX: R79.89 Other specified abnormal findings of blood chemistry (principal); I10 Essential (primary) hypertension; Z79.01 Long term (current) use of anticoagulants; E03.9 Hypothyroidism, unspecified; N18.32 Chronic kidney disease, stage 3b; I25.10 Atherosclerotic heart disease of native coronary artery without angina pectoris; E78.2 Mixed hyperlipidemia | CPT/HCPCS: 80053; 80061; 82306; 82607; 82728; 83036; 83540; 84439; 84443; 85025; 85610 ==

== ENCOUNTER 2024-11-07 09:40 | Outpatient (RCR) | payer MEDICAID, SELFPAY | END 2024-12-06 23:59 | disposition home or self-care (01) | LOC: CR 09:40 | PROVIDERS: PCP Family Medicine; Referring Provider Internal Medicine; Visit Provider Internal Medicine | DX: J44.9 Chronic obstructive pulmonary disease, unspecified (principal) | CPT/HCPCS: 93798; 94626 ==

== ENCOUNTER 2024-11-27 11:53 | Outpatient (CLI) | payer MEDICAID, SELFPAY ==
[2024-11-27 12:40] LABS: INR 4.21 (0.8-1.2)
[2024-11-27 12:54] LABS: Free T4 Free Thyroxine 1.39 ng/dL (0.82-1.77); Thyroid Stimulating Hormone 4.76 uIU/mL (0.27-4.20)
== END 2024-11-27 11:54 | disposition home or self-care (01) ==
PROVIDERS: PCP Family Medicine; Visit Provider Family Medicine
DX: E03.9 Hypothyroidism, unspecified (principal); Z79.01 Long term (current) use of anticoagulants
CPT/HCPCS: 36415; 84439; 84443; 85610

== ENCOUNTER → 2024-12-03 10:43 | Outpatient (BNVA) | payer MEDICAID, SELFPAY | PROVIDERS: PCP Family Medicine; Visit Provider Emergency Medicine | DX: J02.9 Acute pharyngitis, unspecified (principal) | CPT/HCPCS: 87071; 87880 ==

== ENCOUNTER 2024-12-07 09:25 | Outpatient (RCR) | payer MEDICAID, SELFPAY | END 2025-01-06 23:59 | disposition home or self-care (01) | LOC: CR 09:25 | PROVIDERS: PCP Family Medicine; Referring Provider Internal Medicine; Visit Provider Internal Medicine | DX: J44.9 Chronic obstructive pulmonary disease, unspecified (principal) | CPT/HCPCS: 93798; 94626 ==

== ENCOUNTER 2025-01-02 13:06 | Outpatient (CLI) | payer MEDICAID, SELFPAY ==
[2025-01-02 14:06] LABS: Prothrombin Time (Patient) 66.5 Seconds (12.0-15.1)
[2025-01-02 15:03] LABS: INR 7.41 (0.83-1.21)
== END 2025-01-02 13:07 | disposition home or self-care (01) ==
LOC: LAB 13:07
PROVIDERS: PCP Family Medicine; Visit Provider Internal Medicine Cardiovascular Disease
DX: Z95.2 Presence of prosthetic heart valve (principal)
CPT/HCPCS: 36415; 85610

== ENCOUNTER 2025-01-05 09:24 | Outpatient (CLI) | payer MEDICAID, SELFPAY ==
[2025-01-05 10:14] LABS: INR 4.29 (0.83-1.21); Prothrombin Time (Patient) 43.3 Seconds (12.0-15.1)
== END 2025-01-05 09:25 | disposition home or self-care (01) ==
LOC: LAB 09:25
PROVIDERS: PCP Family Medicine; Visit Provider Internal Medicine Cardiovascular Disease
DX: Z95.2 Presence of prosthetic heart valve (principal)
CPT/HCPCS: 36415; 85610

== ENCOUNTER 2025-01-09 10:34 | Outpatient (RCR) | payer MEDICAID, SELFPAY | END 2025-02-05 23:59 | disposition home or self-care (01) | LOC: CR 10:34 | PROVIDERS: PCP Family Medicine; Referring Provider Internal Medicine; Visit Provider Internal Medicine | DX: J44.9 Chronic obstructive pulmonary disease, unspecified (principal) | CPT/HCPCS: 93798; 94626 ==

== ENCOUNTER 2025-01-11 10:18 | Outpatient (CLI) | payer MEDICAID, SELFPAY ==
[2025-01-11 11:21] LABS: INR 2.16 (0.83-1.21); Prothrombin Time (Patient) 25.4 Seconds (12.0-15.1)
== END 2025-01-11 10:19 | disposition home or self-care (01) ==
LOC: LAB 10:19
PROVIDERS: PCP Family Medicine; Visit Provider Internal Medicine Cardiovascular Disease
DX: Z95.2 Presence of prosthetic heart valve (principal)
CPT/HCPCS: 36415; 85610

== ENCOUNTER 2025-02-06 09:13 | Outpatient (RCR) | payer MEDICAID, SELFPAY | END 2025-03-08 23:59 | disposition home or self-care (01) | LOC: CR 09:13 | PROVIDERS: PCP Family Medicine; Referring Provider Internal Medicine; Visit Provider Internal Medicine | DX: J44.9 Chronic obstructive pulmonary disease, unspecified (principal) | CPT/HCPCS: 94626 ==

== ENCOUNTER → 2025-02-13 08:24 | Outpatient (BNVA) | payer MEDICAID, SELFPAY | PROVIDERS: PCP Family Medicine; Visit Provider Student in an Organized Health Care Education/Training Program | DX: M25.551 Pain in right hip (principal); M54.50 Low back pain, unspecified; Z96.641 Presence of right artificial hip joint | CPT/HCPCS: 73502; 99204 ==

== ENCOUNTER 2025-02-16 11:02 | Outpatient (CLI) | payer MEDICAID, SELFPAY ==
[2025-02-16 11:54] LABS: Prothrombin Time 82.40 SECONDS (12.1-14.9)
[2025-02-16 13:14] LABS: INR 9.75 (0.8-1.2)
== END 2025-02-16 11:03 | disposition home or self-care (01) ==
LOC: LAB 11:03
PROVIDERS: PCP Family Medicine; Visit Provider Internal Medicine Cardiovascular Disease
DX: Z79.01 Long term (current) use of anticoagulants (principal); Z95.2 Presence of prosthetic heart valve
CPT/HCPCS: 36415; 85610

== ENCOUNTER 2025-02-16 13:49 | Emergency (ER) | payer MEDICAID, SELFPAY ==
--- OUTSIDE RECORDS SUMMARY | 2025-02-16 13:57 | XMS_ITS | Clinical Summary ---
Author Organization [place] Address [address] 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 Active aspirin (ECOTRIN EC) 81 mg Tablet, Delayed Release (E.C.) Take 81 mg by mouth daily. Active atorvastatin (LIPITOR) 40 mg tablet daily. 3 Active buPROPion HCL (WELLBUTRIN XL) 300 mg Extended Release 24 hour tablet Take 300 mg by mouth daily in the morning. 3 Active Farxiga 10 mg Tablet Take 10 mg by mouth daily in the morning. 3 Active levothyroxine 88 mcg tablet Take 88 mcg by mouth daily. 3 Active omeprazole (PriLOSEC) 20 mg Capsule, Delayed Release(E.C.) Take 20 mg by mouth daily. 2 Active oxyquinoline-sodiu m lauryl sulfate (TRIMO-WHALEN) 0.025-0.01 % Gel vaginal gel Insert vaginally 1 time daily as needed. Active temazepam (RESTORIL) 30 mg capsule daily at bedtime. 2 Active warfarin (COUMADIN) 3 mg tablet daily. 2 Active LORazepam (ATIVAN) 0.5 mg tablet Take 0.5 mg by mouth daily at bedtime. Active metoprolol tartrate (LOPRESSOR) 25 mg tabletIndications: Hold for SBP <100 or HR <60 Take 1 Tablet (25 mg) by mouth 2 times daily. 60 Tablet 1 05/03/2023 1:54 PM CDT 3 Active acetaminophen (TYLENOL) 500 mg tablet Take 2 Tablets (1,000 mg) by mouth every 6 hours as needed for Pain. 60 Tablet 1 3 Active gabapentin (NEURONTIN) 100 mg capsule TAKE 1 CAPSULE BY MOUTH IN THE MORNING AND 1 IN THE AFTERNOON AND 2 NIGHTLY Active umeclidinium-vilan teroL (ANORO ELLIPTA) 62.5-25 mcg/actuation Disk with DeviceIndications: Stage 2 moderate COPD by GOLD classification (CMS/HCC) Take 1 Puff by inhalation daily. 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 classification 08/2022 Thyroid nodule, cold 10/15/2010 Hyperthyroidism 10/02/2010 Encounters Date Type Department Care Team Description 02/06/2025 External Device Data [facility] ABSTRACTION Provider, Abstract 01/30/2025 External Device Data [facility] ABSTRACTION Provider, Abstract 01/23/2025 External Device Data [facility] ABSTRACTION Provider, Abstract 01/02/2025 External Device Data [facility] ABSTRACTION Provider, Abstract 12/28/2024 External Device Data [facility] ABSTRACTION Provider, Abstract 12/26/2024 External Device Data [facility] ABSTRACTION Provider, Abstract 11/21/2024 External Device Data [facility] ABSTRACTION Provider, Abstract from Last 3 Months Social History Tobacco Use Types Packs/Day Years Used Date Smoking Tobacco: Former Cigarettes Smokeless Tobacco: Never Tobacco Cessation:Counseling Given: Not Answered Alcohol Use Standard Drinks/Week Comments Not Asked 0 (1 standard drink = 0.6 oz pur e alcohol) Feeling Safe Answer Date Recorded Are you in a relationship wi th someone who hurts you emotionally and/or physically? No 04/21/2023 Food Insecurity Answer Date Recorded Social/Environmental Concerns No concerns Transportation Needs Answer Date Record ed Social/Environmental Concerns No concerns Housing Stability Answer Date Recorded Social/Environmental Concerns No concerns Utility Needs Answer Date Recorded Social/Environmental Concerns No concerns Comments No Sex and Gender Information Value Date Recorded Sex Assigned at Female 04/15/2024 7:02 PM CDT Legal Sex Female 11:56 AM MEDICARE SALES REPRESENTATIVE Gender Identity Not on file Sexual Orientation Not on file Last Filed Vital Signs Vital Sign Reading Time Taken Comments Blood Pressure 147/76 07/28/2024 12:48 PM MEDICARE SALES REPRESENTATIVE Pulse 71 07/28/2024 12:48 PM MEDICARE SALES REPRESENTATIVE Temperature 36.7 C (98 F) 05/03/2023 11:00 AM CDT Respiratory Rate 18 05/03/2023 11:25 AM CDT Oxygen Saturation 96% 07/28/2024 12:48 PM MEDICARE SALES REPRESENTATIVE Inhaled Oxygen Concentration - - Weight 81.6 kg (180 lb) 07/28/2024 12:48 PM MEDICARE SALES REPRESENTATIVE Height 157.5 cm (5' 2 ) 07/28/2024 12:48 PM MEDICARE SALES REPRESENTATIVE Body Mass Index 32.92 07/28/2024 12:48 PM MEDICARE SALES REPRESENTATIVE Plan of Treatment Upcoming Encounters Date Type Department Care Team (Late st Contact Info) Description 05/23/2025 2:30 PM CDT Office Visit [facility] [address] [place] [address] Olga Lidia Maddox MD [address] [place] [address] Health Maintenance Due Date Last Done Comments Pre-Diabetes and Diabetes Screening 1965 DTAP/TDAP/TD VACCINES (1 - Tdap) 1986 HEPATITIS B VACCINES (1 of 3 - 19+ 3-dose series) 01/07 HPV/Cotest (21-29) 01/22/1988 CERVICAL CANCER SCREENING 1997 HPV/Cotest (30-65) 1997 PAP SMEAR 1997 BREAST CANCER SCREENING 2007 COLORECTAL SCREENING 01/22/2012 Colorectal Cancer Screening 01/22/2012 FIT-DNA Q 3 years 01/22/2012 FIT/FOBT Q 1 year 01/22/2012 Flex Sig/CT Colonography Q 5 years 01/22/2012 ZOSTER VACCINE (1 of 2) 2017 INFLUENZA VACCINE (#1) 2025 Medical Devices Implanted Type Area Physician'S Assistant Device Identifier Shelf Expiration Date Model / Serial / Lot Closure Perclose Prostyle Sut Mediate [id number] - [id number] Implanted:Qty: 1 on 02/26/2023 by Jayjay Sloan MD at [facility] Closure Device Right: Groin DICKSON- VASC DEVICE 12/06/2024 [id number] / / [id number] Hemostatic Surgifoam [id number] 1973 - [id number] Implanted:Qty: 1 on 04/27/2023 by Octavio Torres MD at [facility] Hemostatic N/A: Heart [employer] [id number] 12/17/20261973 [id number] Hemostatic Surgifoam [id number] 1973 - [id number] Implanted:Qty: 1 on 04/27/2023 by Octavio Torres MD at [facility] Hemostatic N/A: Heart [employer] [id number] 12/17/20261973 [id number] Marker Anastomark Coronry Ss Distal W/ Robles Amgm-D - [id number] Implanted:Qty: 1 on 04/27/2023 by Octavio Torres MD at [facility] Other N/A: Heart [employer] 10/06/2025 AMGM-D / / [id number] Marker Anastomark Coronry Ss Distal W/ Robles Amgm-D - [id number] Implanted:Qty: 1 on 04/27/2023 by Octavio Torres MD at [facility] Other N/A: Heart [employer] 10/06/2025 AMGM-D / / [id number] Sealant Progel Pleural 4ml [id number] - [id number] Implanted:Qty: 1 on 04/27/2023 by Octavio Torres MD at [facility] Tissue N/A: Heart BARD DAVOL 09/11/2024 [id number] / / [id number] Insurance [place] RX INFOCROSSING Medicaid Advance Directives For more information, please contact: [phone] * Full Code (Latest Code Status on File) Date Activated Date Inactivated Comments 04/27/2023 1:36 PM 05/03/2023 4:18 PM * Full Code Date Activated Date Inactivated Comments 04/20/2023 1:33 PM 04/27/2023 1:36 PM * Full Code Date Activated Date Inactivated Comments 02/26/2023 12:36 PM 02/26/2023 5:10 PM * Full Code Date Activated Date Inactivated Comments 02/26/2023 9:28 AM 02/26/2023 12:36 PM
--- OUTSIDE RECORDS SUMMARY | 2025-02-16 13:57 | XMS_ITS | Patient Health Record ---
Author Organization [facility] Address [address] [place] [address] Support Name Relationship Address Phone Boyd Danielle Guarantor Unknown [phone] Reason For Referral No Information Medications Medication SIG (Take, Route, Frequency, Duration) Notes Start Date End Date Status Amlodipine 10 MG Oral Tablet Amlodipine 10 MG Oral Tablet 6 08/09/18 Active Clonidine Hydrochloride 0.1 MG Oral Tablet Clonidine Hydrochloride 0.1 MG Oral Tablet 6 08/09/18 Active Hydrochlorothiazide 25 MG / Triamterene 37.5 MG Oral Tablet Hydrochlorothiazide 25 MG / Triamterene 37.5 MG Oral Tablet 6 08/09/18 Active 24 HR Bupropion Hydrochloride 150 MG Extended Release Tablet 24 HR Bupropion Hydrochloride 150 MG Extended Release Tablet 6 08/09/18 Active Metoprolol Tartrate 50 MG Oral Tablet Metoprolol Tartrate 50 MG Oral Tablet 6 08/09/18 Active Hydroxychloroquine Sulfate 200 MG Oral Tablet Hydroxychloroquine Sulfate 200 MG Oral Tablet 6 08/09/18 Active tramadol hydrochloride 50 MG Oral Tablet tramadol hydrochloride 50 MG Oral Tablet 6 08/09/18 Active Levothyroxine Sodium 0.112 MG Oral Tablet Levothyroxine Sodium 0.112 MG Oral Tablet 6 08/09/18 Active Albuterol Albuterol 6 08/09/18 Active Azithromycin Azithromycin 6 08/09/18 Active Clonazepam 0.5 MG Oral Tablet Clonazepam 0.5 MG Oral Tablet 6 08/09/18 Active Plan Of Treatment No Information
[2025-02-16 14:05] VITALS: BP 135/84; PULSE 101; RESP 16; TEMP 36.4; O2SAT 95; BMI 29.4
[2025-02-16 15:47] LABS: Hematocrit 37.6 % (36-47); Hemoglobin 11.20 g/dL (11.27-16.99); Mean Corpuscular HGB Conc 29.8 g/dL (30-55); Mean Corpuscular Hemoglobin 23.5 pg (27-33); Mean Corpuscular Volume 79.0 fl (85-98); Nucleated Red Blood Cells % 0 %; Platelet Count 311 10^3/cmm (157-399); Red Blood Count 4.76 10^6/uL (3.85-5.65); White Blood Count 8.61 10^3/uL (3.29-11.43)
[2025-02-16 16:05] LABS: Alanine Aminotransferase 8 U/L (0-33); Albumin Level 3.6 g/dL (3.5-5.2); Alkaline Phosphatase 155 U/L (35-105); Anion Gap 15.1 (5-19); Aspartate Amino Transferase 13 U/L (0-32); Blood Urea Nitrogen 18 mg/dL (6-20); Calcium 9.1 mg/dL (8.5-10.5); Carbon Dioxide 24 mmol/L (22-29); Chloride 100 mmol/L (98-107); Creatinine Clr Calc Pharmacy 38.2519; Globulin 3.5 g/dL (1.3-4.6); Glucose 83 mg/dL (65-115); Osmolality Calculated 281 mOsm/kg (285-295); Potassium 4.1 mmol/L (3.5-5.1); Sodium 135 mmol/L (136-145); Total Protein 7.1 g/dL (6.6-8.7)
--- NOTE | 2025-02-16 16:19 | ED_ITS ---
HPI - Recheck/Abnormal Lab/Rx 2 General: Chief Complaint: Recheck/Abnormal Lab/Rx Stated Complaint: Blood too thin from heart care Time Seen by Provider: 02/16/25 16:17 History of Present Illness: 60-year-old female presents emergency ro om the direction of her cardiology clinic. She had increasing bruising lately no reputed significantly elevated she denies any active bleeding she was directed to the ER by the clinic. She has not had any bloody stools epistaxis bleeding from the gums no black tarry stools no melena. No hematemesis or coffee-ground emesis. No hematuria. Related Data Previous Rx's ?Medication ?Instructions ?Recorded albuterol sulfate 0.63 mg/3 mL 0.63 mg (3 mL) inhalati on Q4H PRN 04/01/22 solution for nebulization shortness of breath or wheez ing #90 mL aspirin 81 mg tablet,delayed 81 mg PO DAILY #90 tabs 1 08/20/21 release dapagliflozin propanediol 10 mg 10 mg PO QAM 30 days # 30 tabs 11/16/22 tablet (Farxiga) meclizine 12.5 mg tablet 12.5 mg PO TID PRN dizziness #14 11/30/23 tabs metoprolol tartrate 50 mg tablet 25 mg (1/2 x 50 mg) P O BID #180 04/05/24 tabs nitroglycerin 0.4 mg sublingual 0.4 mg sublingual Q5M PRN chest 09/06/24 tablet pain #20 tabs warfarin 4 mg tablet See Rx Instructions .Route 0 11/08/24 .COMPLEX #90 tabs atorvastatin 40 mg tablet See Rx Instructions .Route 0 11/20/24 .COMPLEX #90 tabs gabapentin 100 mg capsule See Rx Instructions .Route 0 11/20/24 .COMPLEX #600 caps levothyroxine 100 mcg tablet 100 mcg PO DAILY #90 tabs 01/04/25 warfarin 3 mg tablet 3 mg PO DAILY #90 tabs 01/05 albuterol sulfate 90 mcg/actuation 2 puff inhalation Q ID PRN 01/29/25 aerosol inhaler (ProAir HFA) shortness of breath or wh eezing #8.5 grams fluoxetine 10 mg capsule See Rx Instructions .Route 0 01/31/25 .COMPLEX #30 caps temazepam 30 mg capsule 30 mg PO .qhs PRN sleep #30 caps 02/06/25 omeprazole 20 mg capsule,delayed See Rx Instructions . Route 02/22/25 release .COMPLEX #240 caps ergocalciferol (vitamin D2) 1,250 See Rx Instructions .Route 02/23/25 mcg (50,000 unit) capsule .COMPLEX #12 caps umeclidinium 62.5 mcg-vilanterol 1 inh inhalation AISHWARYA Y 30 days #60 02/23/25 25 mcg/actuation powdr for ea inhalation (Anoro Ellipta) ascorbate calcium (vitamin C) 500 500 mg PO Q48H #60 t abs 03/01/25 mg tablet docusate sodium 100 mg capsule 100 mg PO BID #60 caps 03/01/25 ferrous sulfate 325 mg (65 mg 325 mg PO Q48H #60 tabs 03/01/25 iron) tablet (FeroSul) tirzepatide (weight loss) 7.5 7.5 mg (0.5 mL) SUBCUT . 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 demyelination Thrombocytopenia Surgical History S/P aortic valve replacement (~2018) [place] S/P CABG x 3 Status post hip surgery (~12/2020) S/P tonsillectomy S/P thyroidectomy S/P cataract extraction History of bone marrow biopsy Status post biopsy of kidney benign Family History Mother Thyroid disease Sister Thyroid disease x2 Grandmother Thyroid disease Maternal Aunt Brother CAD (coronary artery disease) Grandfather Lung cancer smoker Social History Smoking and tobacco/nicotine status: former use of tobacco/nicotine Quit status (tobacco/nicotine): has quit using Former quit date comment: PPD x 30 yrs; quit 12/2019 Second hand smoke exposure: No Alcohol intake: never Substance/Drug Use: never Caregiver/support person: Yes Lives independently: Yes Household members: children Marital status: Number of children: 4 Number of grandchildren: 6 service: No Current occupational status: unemployed Do you think of yourself as: Straight/Heterosexual Current gender identity: Female Myrna/Voodoo: Anabaptism Special myrna needs: Yes Details: last rights as a Anabaptism if deemed near Agree to transfusion: Yes Female Reproductive History: Spontaneous abortions: No Physical Exam 2 Const: GENERAL APPEARANCE: cooperative ORIENTATION/CONSCIOUSNESS: Yes awake, Yes oriented to person, Yes oriented to place and Yes oriented to time HENMT: COMMON NORMALS: normocephalic, atraumatic and hearing grossly normal bilaterally HEAD & SCALP: normocephalic and atraumatic Resp: COMMON NORMALS: normal respiratory effort, No retractions, No use of accessory muscles and clear to auscultation bilaterally AUSCULTATION: clear to auscultation bilaterally Cardio: COMMON NORMALS: regular rate, regular rhythm and No murmurs present (Cardio) RATE: regular rate RHYTHM: regular rhythm GI: COMMON NORMALS: Soft to palpation and No hepatosplenomegaly present A USCULTATION: Yes normoactive bowel sounds PALPATION: Yes Soft to palpation, No Tenderness to palpation present (GI), No Guarding due to palpation present (GI) and Yes No hepatosplenomegaly present Extremity: COMMON NORMALS: normal to inspection, capillary refill normal, no clubbing, cyanosis or edema, no calf tenderness and no pedal edema Neuro: SENSORIUM/ORIENTATION: Yes oriented to person, Yes oriented to place and Yes oriented to time Skin: COMMON NORMALS: no rashes or lesions noted GENERAL SKIN EXAM: no rashes or lesions noted Course 2 Vital Signs: Vital signs: Vital Signs Temperature 97.5 F L 02/16/25 14:05 Pulse Rate 101 H 02/16/25 14:05 Respiratory Rate 16 02/16/25 14:05 Blood Pressure 135/84 02/16/25 14:05 Pulse Oximetry 95 02/16/25 14:05 Oxygen Delivery Me thod Room Air 02/16/25 14:05 MDM - Recheck/Abnormal Lab/Rx Medical Decision Making No sign of active bleeding. Patient given 1 dose of vitamin K have her hold her Coumadin through the weekend she should check for thing on Wednesday as an outpatient. Expressed on of the importance of rechecking her INR because we do not want it to fall below therapeutic level. If she has any signs of active bleeding over the weekend she should return immediately to the emergency room. Medical Records I reviewed the patient's medical records. Lab Data I reviewed the patient's lab results. 02/16/25 15:40 02/16/25 15:40 Laboratory Results WBC 8.61 10^3/uL (3.29-11.43) 02/16/25 15:40 RBC 4.76 10^6/uL (3.85-5.65) 02/16/25 15:40 Hgb 11.20 g/dL (11.27-16.99) L 02/16/25 15:40 Hct 37.6 % (36-47) 02/16/25 15:40 MCV 79.0 fl (85-98) L 02/16/25 15:40 MCH 23.5 pg (27-33) L 02/16/25 15:40 MCHC 29.8 g/dL (30-55) L 02/16/25 15:40 RDW 19.6 % (12.1-15.1) H 02/16/25 15:40 Plt Count 311 10^3/cmm (157-399) 02/16/25 15:40 MPV 11.3 fL (7.4-10.4) H 02/16/25 15:40 Neut % (Auto) 64.9 % 02/16/25 15:40 Lymph % (Auto) 26.1 % 02/16/25 15:40 [place] % (Auto) 6.4 % 02/16/25 15:40 Eos % (Auto) 2.0 % 02/16/25 15:40 Baso % (Auto) 0.3 % 02/16/25 15:40 Neut # (Auto) 5.58 10^3/uL (1.8-7.7) 02/16/25 15:40 Lymph # (Auto) 2.3 10^3/uL (0.8-4.8) 02/16/25 15:40 [place] # (Auto) 0.6 10^3/uL (0.2-0.9) 02/16/25 15:40 Eos # (Auto) 0.2 10^3/uL (0.0-0.8) 02/16/25 15:40 Baso # (Auto) 0.0 10^3/uL (0.0-0.1) 02/16/25 15:40 Nucleated RBC % (auto) 0 % 02/16/25 15:40 Nucleated RBCs # 0.0 /100WBC 02/16/25 15:40 Sodium 135 mmol/L (136-145) L 02/16/25 15:40 Potassium 4.1 mmol/L (3.5-5.1) 02/16/25 15:40 Chloride 100 mmol/L (98-107) 02/16/25 15:40 Carbon Dioxide 24 mmol/L (22-29) 02/16/25 15:40 Anion Gap 15.1 (5-19) 02/16/25 15:40 BUN 18 mg/dL (6-20) 02/16/25 15:40 Creatinine 1.5 mg/dL (0.5-0.9) H 02/16/25 15:40 GFR Calculation 35.7 mL/min (90-130) L 02/16/25 15:40 Glucose 83 mg/dL (65-115) 02/16/25 15:40 Calculated Osmolality 281 mOsm/kg (285-295) L 02/16/25 15:40 Calcium 9.1 mg/dL (8.5-10.5) 02/16/25 15:40 Total Bilirubin 0.6 mg/dL (0.15-1.2) 02/16/25 15:40 AST 13 U/L (0-32) 02/16/25 15:40 ALT 8 U/L (0-33) 02/16/25 15:40 Alkaline Phosphatase 155 U/L (35-105) H 02/16/25 15:40 Total Protein 7.1 g/dL (6.6-8.7) 02/16/25 15:40 Albumin 3.6 g/dL (3.5-5.2) 02/16/25 15:40 Globulin 3.5 g/dL (1.3-4.6) 02/16/25 15:40 No radiology studies performed this visit Discharge Plan Discharge Patient Disposition: Home Clinical Impression: Over-anticoagulated Condition: Stable Prescriptions: No Action albuterol sulfate 0.63 mg/3 mL solution for nebulization 0.63 mg inhalation Q4H PRN (Reason: shortness of breath or wheezing) Qty: 90 11RF ferrous sulfate [FeroSul] 325 mg (65 mg iron) tablet 325 mg PO Q48H Qty: 60 3RF Rx Instructions: Take with 500mg of Vitamin C or with a glass of orange juice. ascorbate calcium (vitamin C) 500 mg tablet 500 mg PO Q48H Qty: 60 3RF docusate sodium 100 mg capsule 100 mg PO BID Qty: 60 2RF meclizine 12.5 mg tablet 12.5 mg PO TID PRN (Reason: dizziness) Qty: 14 0RF levothyroxine 100 mcg tablet 100 mcg PO DAILY Qty: 90 1RF Farxiga 10 mg tablet 10 mg PO QAM 30 Days Qty: 30 3RF metoprolol tartrate 50 mg tablet 25 mg PO BID Qty: 180 3RF nitroglycerin 0.4 mg tablet, sublingual 0.4 mg sublingual Q5M PRN (Reason: chest pain) Qty: 20 3RF Rx Instructions: do not exceed 3 doses per episode warfarin 4 mg tablet See Rx Instructions .ROUTE .COMPLEX Qty: 90 3RF Protocol: Dose Management Condition: Wednesday Dose/Route: 0 mg Instruction: 0 tablets Condition: Wednesday Dose/Route: 3 mg Instruction: 1 x 3 mg tablet Condition: Wednesday Dose/Route: 3 mg Instruction: 1 x 3 mg tablet Condition: Wednesday Dose/Route: 3 mg Instruction: 1 x 3 mg tablet Condition: Dose/Route: 3 mg Instruction: 1 x 3 mg tablet Condition: Wednesday Dose/Route: 0 mg Instruction: 0 tablets Condition: Wednesday Dose/Route: 0 mg Instruction: 0 tablets Protocol Text: Adjustment Start Date: Wednesday02/16/25 INR Value: 82.40 SECONDS INR Date: 02/16/25 Recheck Date: 02/19/25 Additional Instructions: Patient was called and discussed provider recommendation to go to the ER due to elevated levels. Patient went to ER and received vitamin K. Told to hold dose until Wednesday and then recheck levels. Dose Instruction: TAKE ONE TABLET BY MOUTH DAILY Rx Instructions: TAKE ONE TABLET BY MOUTH DAILY gabapentin 100 mg capsule See Rx Instructions .ROUTE .COMPLEX Qty: 600 0RF Dose Instruction: TAKE ONE CAPSULE BY MOUTH IN THE MORNING, ONE IN THE AFTERNOON, AND TWO at bedtime Rx Instructions: TAKE ONE CAPSULE BY MOUTH IN THE MORNING, ONE IN THE AFTERNOON, AND TWO at bedtime atorvastatin 40 mg tablet See Rx Instructions .ROUTE .COMPLEX Qty: 90 3RF Dose Instruction: TAKE ONE TABLET BY MOUTH DAILY Rx Instructions: TAKE ONE TABLET BY MOUTH DAILY warfarin 3 mg tablet 3 mg PO DAILY Qty: 90 3RF Protocol: Dose Management Condition: Wednesday Dose/Route: 0 mg Instruction: 0 tablets Condition: Wednesday Dose/Route: 3 mg Instruction: 1 x 3 mg tablet Condition: Wednesday Dose/Route: 3 mg Instruction: 1 x 3 mg tablet Condition: Wednesday Dose/Route: 3 mg Instruction: 1 x 3 mg tablet Condition: Dose/Route: 3 mg Instruction: 1 x 3 mg tablet Condition: Wednesday Dose/Route: 0 mg Instruction: 0 tablets Condition: Wednesday Dose/Route: 0 mg Instruction: 0 tablets Protocol Text: Adjustment Start Date: Wednesday02/16/25 INR Value: 82.40 SECONDS INR Date: 02/16/25 Recheck Date: 02/19/25 Additional Instructions: Patient was called and discussed provider recommendation to go to the ER due to elevated levels. Patient went to ER and received vitamin K. Told to hold dose until Wednesday and then recheck levels. albuterol sulfate [ProAir HFA] 90 mcg/actuation HFA aerosol inhaler 2 puff inhalation QID PRN (Reason: shortness of breath or wheezing) Qty: 8.5 4RF fluoxetine 10 mg capsule See Rx Instructions .ROUTE .COMPLEX Qty: 30 2RF Dose Instruction: TAKE ONE CAPSULE BY MOUTH DAILY Rx Instructions: TAKE ONE CAPSULE BY MOUTH DAILY temazepam 30 mg capsule 30 mg PO .qhs PRN (Reason: sleep) Qty: 30 2RF omeprazole 20 mg capsule,delayed release(DR/EC) See Rx Instructions .ROUTE .COMPLEX Qty: 240 0RF Dose Instruction: TAKE ONE CAPSULE BY MOUTH DAILY Rx Instructions: TAKE ONE CAPSULE BY MOUTH DAILY Anoro Ellipta 62.5-25 mcg/actuation blister with device 1 inh inhalation DAILY 30 Days Qty: 60 3RF ergocalciferol (vitamin D2) 1,250 mcg (50,000 unit) capsule See Rx Instructions .ROUTE .COMPLEX Qty: 12 0RF Dose Instruction: TAKE ONE CAPSULE BY MOUTH WEEKLY Rx Instructions: TAKE ONE CAPSULE BY MOUTH WEEKLY tirzepatide (weight loss) 7.5 mg/0.5 mL pen injector 7.5 mg SUBCUT .weekly Qty: 2 2RF aspirin 81 mg Tablet,Delayed Release (Dr/Ec) 81 mg PO DAILY Qty: 90 3RF Discharge Orders: Discharge ED (Routine); Ordered 02/16/25 Ordered By: Magdaleno Thorne Referrals: Nickolas Bolanos, [Primary Care Provider, Family Practice] Discharge Diet: Usual diet Discharge Activity: Resume usual activity Patient Instructions: Opioid Safety, Pain Management, Patient Portal & Sebastian Instructions Activity Restrictions/Additional Instructions: Thank you for choosing [facility] for your healthcare needs today. It is very important that you follow up as instructed or that you return to the Emergency Department should you have concerns or if your condition changes or worsens in any way. You were seen in the emergency room with over anticoagulation from your Coumadin. You are given a single dose of vitamin K. Recommend that you do not take any more Coumadin for the next several days. On February 19, 2025 you should have your INR rechecked at the cardiology clinic they will advise you further on Coumadin dosage and at that time. You should return to the emergency room if you have any signs of bleeding such as bloody nose that will not stop vomiting blood passing blood from the rectum or any other unusual bleeding. 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
[2025-02-16] MEDS: phytonadione (ADULT) 10 mg/mL Ampule 1 mL SUBCUT (16:39)
== END 2025-02-16 16:44 | disposition home or self-care (01) ==
PROVIDERS: Emergency Medicine; Emergency Provider Family Medicine; PCP Family Medicine
DX: Z79.01 Long term (current) use of anticoagulants (principal); Z79.82 Long term (current) use of aspirin; Z87.891 Personal history of nicotine dependence; Z95.1 Presence of aortocoronary bypass graft; I25.10 Atherosclerotic heart disease of native coronary artery without angina pectoris; I10 Essential (primary) hypertension
CPT/HCPCS: 36415; 80053; 85025; 96372; 99284; J3430

== ENCOUNTER 2025-02-19 11:52 | Outpatient (CLI) | payer MEDICAID, SELFPAY ==
[2025-02-19 13:22] LABS: INR 1.06 (0.83-1.21)
== END 2025-02-19 11:53 | disposition home or self-care (01) ==
LOC: LAB 11:55
PROVIDERS: PCP Family Medicine; Visit Provider Internal Medicine Cardiovascular Disease
DX: Z95.2 Presence of prosthetic heart valve (principal)
CPT/HCPCS: 36415; 85610

== ENCOUNTER → 2025-02-22 13:43 | Outpatient (BNVA) | payer MEDICAID, SELFPAY | PROVIDERS: PCP Family Medicine; Visit Provider Orthopaedic Surgery | DX: M54.50 Low back pain, unspecified (principal); G89.29 Other chronic pain | CPT/HCPCS: 72110; 99203 ==

== ENCOUNTER 2025-02-26 11:51 | Outpatient (CLI) | payer MEDICAID, SELFPAY ==
[2025-02-26 13:18] LABS: INR 1.29 (0.83-1.21)
== END 2025-02-26 11:52 | disposition home or self-care (01) ==
LOC: LAB 11:53
PROVIDERS: PCP Family Medicine; Visit Provider Internal Medicine
DX: Z95.2 Presence of prosthetic heart valve (principal)
CPT/HCPCS: 36415; 85610

== ENCOUNTER 2025-03-05 11:29 | Outpatient (CLI) | payer MEDICAID, SELFPAY ==
[2025-03-05 12:23] LABS: INR 1.93 (0.83-1.21)
== END 2025-03-05 11:30 | disposition home or self-care (01) ==
PROVIDERS: Internal Medicine; PCP Family Medicine; Visit Provider Internal Medicine Rheumatology
DX: Z95.2 Presence of prosthetic heart valve (principal)
CPT/HCPCS: 36415; 85610

== ENCOUNTER 2025-03-06 14:52 | Outpatient (CLI) | payer MEDICAID, SELFPAY ==
--- NOTE | 2025-03-06 15:15 | MR_ITS ---
WS: [id number] MRI LUMBAR SPINE NONCONTRAST HISTORY: low back pain COMPARISON: None available. TECHNIQUE: Sagittal and axial multisequence imaging is submitted. Normal lumbar alignment with no compression fractures or marrow edema. Disc spaces and vertebral body heights are well-preserved. Conus terminates normally at L1-2 disc level. T12-L1: Shallow central disc protrusion. No stenosis. L1-L2: Normal. L2-L3: Mild annular disc bulging with ligamentum flavum and facet arthritis. There is very mild encroachment upon the subarticular recesses. No stenosis. L3-L4: Mild annular disc bulging. Mild facet disease. No stenosis. L4-L5: Mild annular disc bulging with mild osteophytic ridging. Minimal encroachment upon the subarticular recesses. Bilateral facet joint arthropathy. Mild bilateral foraminal stenosis. L5-S1: Mild annular disc bulging with a central disc protrusion. There is disc contacting the S1 nerve roots bilaterally. Moderate facet arthritis. Disc osteophyte disease extending into the foramina. There is disc osteophyte contact on the exiting L5 nerve roots. Mild foraminal stenosis. No paravertebral abnormalities. MR/MR lumbar spine wo con* [id number] IMPRESSION: 1. No high-grade central stenosis. 2. L5-S1: Central disc protrusion contacts the S1 nerve roots. Bilateral moder ate facet arthritis. Disc osteophyte contact also on the exiting L5 nerve roots . 3. L4-5: Mild subarticular recess and bilateral foraminal stenosis. 4. Shallow central disc protrusion at T12-L1.
== END 2025-03-06 14:53 | disposition home or self-care (01) ==
LOC: RAD 14:53
PROVIDERS: PCP Family Medicine; Visit Provider Orthopaedic Surgery
DX: M51.26 Other intervertebral disc displacement, lumbar region (principal); M47.896 Other spondylosis, lumbar region; M51.24 Other intervertebral disc displacement, thoracic region
CPT/HCPCS: 72148

== ENCOUNTER 2025-04-30 13:05 | Outpatient (CLI) | payer MEDICAID, SELFPAY ==
[2025-04-30 13:43] LABS: Hematocrit 44.7 % (36-47); Hemoglobin 13.80 g/dL (11.27-16.99); Mean Corpuscular HGB Conc 30.9 g/dL (30-55); Mean Corpuscular Hemoglobin 25.2 pg (27-33); Mean Corpuscular Volume 81.7 fl (85-98); Nucleated Red Blood Cells % 0 %; Platelet Count 180 10^3/cmm (157-399); Red Blood Count 5.47 10^6/uL (3.85-5.65); White Blood Count 5.34 10^3/uL (3.29-11.43)
[2025-04-30 13:56] LABS: INR 1.98 (0.83-1.21)
[2025-04-30 14:05] LABS: Creatinine Urine, Random 271 mg/dL (28-217); Microalbum Creatinine Ratio Ur 7 mg/dL (0-20)
[2025-04-30 14:07] LABS: Albumin Level 4.0 g/dL (3.5-5.2); Anion Gap 12.6 (5-19); Blood Urea Nitrogen 9 mg/dL (6-20); Calcium 8.9 mg/dL (8.5-10.5); Calcium 9.0 mg/dL (8.5-10.5); Carbon Dioxide 24 mmol/L (22-29); Chloride 106 mmol/L (98-107); Glucose 82 mg/dL (65-115); Potassium 3.6 mmol/L (3.5-5.1); Sodium 139 mmol/L (136-145)
== END 2025-04-30 13:06 | disposition home or self-care (01) ==
PROVIDERS: Absent Provider Internal Medicine; PCP Family Medicine; Visit Provider Registered Nurse
DX: N18.32 Chronic kidney disease, stage 3b (principal); Z95.2 Presence of prosthetic heart valve; E55.9 Vitamin D deficiency, unspecified
CPT/HCPCS: 36415; 80069; 82044; 82306; 82310; 83970; 85025; 85610

== ENCOUNTER → 2025-05-01 12:54 | Outpatient (BNVA) | payer MEDICAID, SELFPAY | PROVIDERS: PCP Family Medicine; Visit Provider Orthopaedic Surgery | DX: M54.50 Low back pain, unspecified (principal); Z09 Encounter for follow-up examination after completed treatment for conditions other than malignant neoplasm | CPT/HCPCS: 99214 ==

== ENCOUNTER → 2025-05-02 13:51 | Outpatient (BNVA) | payer MEDICAID, SELFPAY | PROVIDERS: PCP Family Medicine; Visit Provider Internal Medicine Cardiovascular Disease | DX: I25.10 Atherosclerotic heart disease of native coronary artery without angina pectoris (principal); Z95.1 Presence of aortocoronary bypass graft; E78.2 Mixed hyperlipidemia; E11.9 Type 2 diabetes mellitus without complications; R06.09 Other forms of dyspnea; I10 Essential (primary) hypertension; Z79.01 Long term (current) use of anticoagulants; Z95.2 Presence of prosthetic heart valve | CPT/HCPCS: 99214 ==

== ENCOUNTER 2025-05-03 09:37 | Outpatient (CLI) | payer MEDICAID, SELFPAY | END 2025-05-03 09:38 | LOC: LAB 05-04 09:05 | PROVIDERS: PCP Family Medicine; Visit Provider Internal Medicine Cardiovascular Disease | DX: J43.9 Emphysema, unspecified (principal); R91.1 Solitary pulmonary nodule; Z95.2 Presence of prosthetic heart valve; Z87.891 Personal history of nicotine dependence; J44.9 Chronic obstructive pulmonary disease, unspecified | CPT/HCPCS: 36415; 85025; 99204 ==

== ENCOUNTER 2025-05-07 15:17 | Outpatient (CLI) | payer MEDICAID, SELFPAY ==
[2025-05-07 16:13] LABS: INR 1.45 (0.83-1.21)
== END 2025-05-07 15:18 | disposition home or self-care (01) ==
LOC: LAB 15:18
PROVIDERS: PCP Family Medicine; Visit Provider Internal Medicine Cardiovascular Disease
DX: Z95.2 Presence of prosthetic heart valve (principal); M54.50 Low back pain, unspecified; M51.16 Intervertebral disc disorders with radiculopathy, lumbar region; G89.29 Other chronic pain
CPT/HCPCS: 36415; 85610; 99204

== ENCOUNTER → 2025-05-09 14:45 | Outpatient (BNVA) | payer MEDICAID, SELFPAY | PROVIDERS: PCP Family Medicine; Visit Provider Family Medicine | DX: Z79.01 Long term (current) use of anticoagulants (principal); R71.8 Other abnormality of red blood cells; R79.89 Other specified abnormal findings of blood chemistry | CPT/HCPCS: 82607; 82728; 82746; 83550; 85045 ==

== ENCOUNTER 2025-05-14 09:50 | Outpatient (CLI) | payer MEDICAID, SELFPAY ==
--- NOTE | 2025-05-14 | ECG_ITS ---
DC Devices Qian Xiao'er Test Date: 2025-05-14 Pat Name: Danielle Nix Department: Room: Gender: Female Buzzsaw Operator: : 1965 Requested By: Dean Goldstein Order Number: [id number] Rickie MD: Brett Ca M.D. Interpretive Statements LEXISCAN SESTAMIBI STRESS TEST Procedure: At the baseline, the blood pressure was 141/86 mmHg with a heart rate of 80 bpm. The electrocardiogram showed normal sinus rhythm, normal axis with normal ST and T's. The Lexiscan was infused over a period of 20 seconds. A total of 0.4 mg of Lexiscan was infused. The stress phase was continued for a total of 5 minutes. Heart rate was at the end of stress phase was 104 bpm and a blood pressure of 125/70 mmHg. The EKG at the peak infusion revealed normal sinus rhythm with ST depressions in the inferior and lateral/anterolateral leads Sestamibi was injected 20 seconds after the Lexiscan infusion. Blood pressure at the end of recovery phase was 126/69 mmHg with a heart rate of 103 bpm. Conclusion: 1. EKG shows ischemic changes in inferior and lateral/anterolateral leads 2. No Lexiscan induced chest pain or cardiac arrhythmia. 3. Normal blood pressure and heart rate response. 4. Sestamibi/sestamibi perfusion scan pending; see separate report. Electronically Signed On 05-20-2025 15:06:07 CDT by Brett Ca M.D. [email or web address]
--- NOTE | 2025-05-14 10:08 | NMCV_ITS ---
NM deshawn perf SPECT r/s* [id number] Danielle Nix Age: 60 Gender: F : 1965 Exam Date: 05/14/2025 10:53 Ordering Phys: Dean Goldstein MD ([email or web address]) Technologist: HOANG Portillo Exam Location: [facility] Indications: CP STRESS TEST Please see separate stress test report in [facility] for full findings IMAGE PROTOCOL Rest/Stress 1 Lexiscan Day Radiopharmaceutical Dose (mCi) Administration Site Administered by Rest: Tc-99m 10.6 IV Mena Dexter, SUPERVISOR [employer]CR[employer]ICATING Sestamibi Stress:Tc-99m 33 IV Mena Dexter, SUPERVISOR [employer]CR[employer]IC[employer] Sestamibi Rest: 14-May-2025 60 Discovery 630 Stress: 14-May-2025 30 Discovery 630 0.4mg Lexiscan. Images obtained in supine and prone position. SPECT RESULTS Technical Quality: Good Raw Data Analysis: Normal Image Corrections: No attenuation or motion correction applied Summed Stress Score: 1 Summed Rest Score: 6 Summed Difference Score: 0 PERFUSION FINDINGS There is small to medium sized area of reduced radiotracer uptake seen in inferior and inferolateral kc. This improves on stress imaging. This likely represents attenuation artifact in these kc. FUNCTIONAL RESULTS (calculated via Gated SPECT) Stress Image LV EF (%): 63 Stress EDV (mL):57 TID: 0.8 Stress ESV (mL):21 FUNCTIONAL FINDINGS: There is normal left ventricular systolic function. IMPRESSIONS 1. Attenuation artifact seen in the inferior and inferolateral kc. No evidence of ischemia. 2. LV systolic function is normal Brett Ca MD (Electronically Signed) Final Date: 14 May 2025 12:31 S
[2025-05-14 10:09] VITALS: BMI 27.2
[2025-05-14 11:38] VITALS: BP 126/69; PULSE 103
== END 2025-05-14 09:51 | disposition home or self-care (01) ==
LOC: CDL 09:50
PROVIDERS: PCP Family Medicine; Visit Provider Internal Medicine Cardiovascular Disease
DX: R07.9 Chest pain, unspecified (principal)
CPT/HCPCS: 36415; 78452; 93017; 96374; A9500; J2785

== ENCOUNTER → 2025-05-16 13:41 | Outpatient (BNVA) | payer MEDICAID, SELFPAY | PROVIDERS: PCP Family Medicine; Visit Provider Anesthesiology Pain Medicine | DX: M54.16 Radiculopathy, lumbar region (principal); E11.9 Type 2 diabetes mellitus without complications | CPT/HCPCS: 36416; 64483; 64484; J1100; J3490; J9999 ==

== ENCOUNTER → 2025-05-17 14:06 | Outpatient (BNVA) | payer MEDICAID, SELFPAY | PROVIDERS: PCP Family Medicine; Visit Provider Anesthesiology Pain Medicine | DX: Z71.89 Other specified counseling (principal) | CPT/HCPCS: 36416; 82962 ==

== ENCOUNTER 2025-05-25 12:41 | Outpatient (CLI) | payer MEDICAID, SELFPAY ==
[2025-05-25 17:33] LABS: Iron 68 ug/dL (37-145)
== END 2025-05-25 12:42 | disposition home or self-care (01) ==
LOC: LAB 12:44
PROVIDERS: PCP Family Medicine; Visit Provider Internal Medicine Cardiovascular Disease
DX: Z79.01 Long term (current) use of anticoagulants (principal); D64.9 Anemia, unspecified
CPT/HCPCS: 36415; 83540

== ENCOUNTER → 2025-05-29 09:31 | Outpatient (BNVA) | payer MEDICAID, SELFPAY | PROVIDERS: PCP Family Medicine; Visit Provider Anesthesiology Pain Medicine | DX: M51.16 Intervertebral disc disorders with radiculopathy, lumbar region (principal); M25.551 Pain in right hip; M54.50 Low back pain, unspecified; G89.29 Other chronic pain | CPT/HCPCS: 99214 ==

== ENCOUNTER → 2025-06-01 15:08 | Outpatient (BNVA) | payer MEDICAID, SELFPAY | PROVIDERS: PCP Family Medicine; Visit Provider Emergency Medicine | DX: R06.02 Shortness of breath (principal); R91.8 Other nonspecific abnormal finding of lung field; Z95.2 Presence of prosthetic heart valve | CPT/HCPCS: 71046 ==

== ENCOUNTER 2025-06-01 15:52 | Inpatient (IN) | payer MEDICAID, SELFPAY ==
--- OUTSIDE RECORDS SUMMARY | 2025-06-01 15:57 | XMS_ITS | Encounter Summary ---
Author Organization [facility] Address [address] [place] [address] Phone Care Team Providers Care Android Ios Developer Name Role Phone Nickolas Bolanos DO Primary Care Provider Unavail able Encounter Details Date Type Department Care Team (Late Contact Info) Description 07/27/2022 Orders Only [facility], [facility] [address] [place] [address] Chronic kidney disease stage 3B (HCC) Social History Tobacco Use Types Packs/Day Years Used Date Smoking Tobacco: Never Assessed Comments Unknown Sex and Gender Information Value Date Recorded Sex Assigned at Not on file Legal Sex Female 10:44 AM EST Gender Identity Not on file Sexual Orientation Not on file documented as of this encounter Plan of Treatment Upcoming Encounters Date Type Department Care Team (Late Contact Info) Description 11/06/2025 1:30 PM CDT Office Visit [facility], [facility] [address] [place] [address] Bhakti Pineda NP [address] [place] [address] documented as of this encounter Visit Diagnoses Diagnosis Chronic kidney disease stage 3B (HCC) documented in this encounter Care Teams Android Ios Developer Relationship Specialty Start Date End Date Nickolas Bolanos DO [address] [place] [address] PCP - General Family Medicine 05/10/25 documented as of this encounter
--- OUTSIDE RECORDS SUMMARY | 2025-06-01 15:57 | XMS_ITS | Clinical Summary ---
Author Organization [facility] Address [address] [place]: [place] [address] Care Team Providers Care Veneer Clipper Helper Name Role Phone Unavailable Primary Care Provider [...] (02/10/2023): Added automatically from request for surgery [id number] Dyspnea 01/07/2023 Cigarette nicotine dependence in remission 01/07 Stage 2 moderate COPD by GOLD classification 08/2022 Thyroid nodule, cold 10/15/2010 Hyperthyroidism 10/02/2010 Encounters Date Type Department Care Team Description 04/10/2025 External Device Data STL ABSTRACTION Provider, Abstract [...] PM CDT Legal Sex Female 11:56 AM VAULT SERVICE MECHANIC Gender Identity Not on file Sexual Orientation Not on file Last Filed Vital Signs Vital Sign Reading Time Taken Comments Blood Pressure 147/76 07/28/2024 12:48 PM VAULT SERVICE MECHANIC Pulse 71 07/28/2024 12:48 PM VAULT SERVICE MECHANIC Temperature 36.7 C (98 F) 05/03/2023 11:00 AM CDT Respiratory Rate 18 05/03/2023 11:25 AM CDT Oxygen Saturation 96% 07/28/2024 12:48 PM VAULT SERVICE MECHANIC Inhaled Oxygen Concentration - - Weight 81.6 kg (180 lb) 07/28/2024 12:48 PM VAULT SERVICE MECHANIC Height 157.5 cm (5' 2 ) 07/28/2024 12:48 PM VAULT SERVICE MECHANIC Body Mass Index 32.92 07/28/2024 12:48 PM VAULT SERVICE MECHANIC Plan of Treatment Health Maintenance Due Date Last Done Comments [...] (#1) 2025 Medical Devices Implanted Type Area Soil Scientist Device Identifier Shelf Expiration Date Model / Serial / Lot Closure Perclose Prostyle Sut Mediate 86620-29 - [id number] Implanted:Qty: 1 on 02/26/2023 by Jayjay Sloan MD at [facility] Closure Device Right: Groin DICKSON- VASC DEVICE 12/06/2024 [id number] / / [id number] Hemostatic Surgifoam [id number] 1973 - [id number] Implanted:Qty: 1 on 04/27/2023 by Octavio Torres MD at [facility] Hemostatic N/A: Heart [employer] [id number] 12/17/20261973441 Hemostatic Surgifoam [id number] 1971 [id number] Implanted:Qty: 1 on 04/27/2023 by Octavio Torres MD at [facility] Hemostatic N/A: Heart [employer] [id number] 12/17/202627131107 Marker Anastomark Coronry Ss Distal W/ Robles Amgm-D - [id number] Implanted:Qty: 1 on 04/27/2023 by Octavio Torres MD at [facility] Other N/A: Heart [employer] 10/06/2025 AMGM-D / / [id number] Marker Anastomark Coronry Ss Distal W/ Robles Amgm-D - [id number] Implanted:Qty: 1 on 04/27/2023 by Octavio Torres MD at [facility] Other N/A: Heart [employer] 10/06/2025 AMGM-D / / [id number] Sealant Progel Pleural 4ml [id number] - [id number] Implanted:Qty: 1 on 04/27/2023 by Octavio Torres MD at [facility] Tissue N/A: Heart BARD DAVOL 09/11/2024 [id number] / / [id number] Insurance MEDICAID [place] RX INFOCROSSING Medicaid Advance Directives For more information, please contact: [phone] * Full Code (Latest Code Status on [...]
--- OUTSIDE RECORDS SUMMARY | 2025-06-01 15:57 | XMS_ITS | Encounter Summary ---
Author Organization [facility], [facility] Address [address] [address] Phone Care Team Providers Care Consultants Intern Name Role Phone Nickolas Bolanos DO Primary Care Provider Unavail able Reason for Visit * Reason Comments Med Refill Encounter Details Date Type Department Care Team ([facility] Contact Info) Description 09/29/2024 Refill [facility], [facility] [address] [address] Sabi Kathleen MD [address] [address] Social History Tobacco Use Types Packs/Day Years Used Date Smoking Tobacco: Former Cigarettes Q uit: 2019 Passive Smoke Exposure: Past Alcohol Use Standard Drinks/Week Comments Never 0 (1 standard drink = 0.6 oz pur e alcohol) Comments No Sex and Gender Information Value Date Recorded Sex Assigned at Not on file Legal Sex Female 10:44 AM EST Gender Identity Not on file Sexual Orientation Not on file documented as of this encounter Plan of Treatment Upcoming Encounters Date Type Department Care Team ([facility] Contact Info) Description 11/06/2025 1:30 PM CDT Office Visit [facility], [facility] [address] [place] [address] Bhakti Pineda NP [address] [address] documented as of this encounter Visit Diagnoses Not on filedocumented in this encounter Care Teams Consultants Intern Relationship Specialty Start Date End Date Nickolas Bolanos DO [address] [place] [address] PCP - General Family Medicine 05/10/25 documented as of this encounter
--- OUTSIDE RECORDS SUMMARY | 2025-06-01 15:58 | XMS_ITS | Clinical Summary ---
Author Organization [facility] Address [address] [address] Care Team Providers Care Laundromat Worker Name Role Phone Nickolas Bolanos DO Primary Care Provider Unavail able Allergies Active Allergy Reactions Criticality Noted Date Comments Amitriptyline 08/05/2022 Iodinated Contrast Media 08/05/2022 Medications albuterol HFA (PROVENTIL HFA;VENTOLIN HFA) 108 (90 Base) MCG/ACT inhaler Inhale 2 puffs every 6 (six) hours if needed for wheezing Active aspirin (ST NICKOLAS) 81 MG EC tablet Take 81 mg by mouth 1 (one) time each day Active atorvastatin (LIPITOR) 40 MG tablet Take 40 mg by mouth 1 (one) time each day Active buPROPion (WELLBUTRIN) 100 MG tablet Take 300 mg by mouth 1 (one) time each day Active levothyroxine (SYNTHROID, LEVOTHROID) 88 MCG tablet Take 100 mcg by mouth 1 (one) time each day Active metoprolol tartrate (LOPRESSOR) 50 MG tablet Take 25 mg by mouth in the morning and 25 mg in the evening. Active omeprazole (PriLOSEC) [address] capsule Take 20 mg by mouth 1 (one) time each day Do not crush or chew. Active temazepam (RESTORIL) 30 MG capsule Take 30 mg by mouth at night if needed for sleep Active warfarin (COUMADIN) 1 MG tablet Take 1 mg by mouth 1 (one) time each day 3mg Thurs and Sat and 4mg daily Active gabapentin (NEURONTIN) 100 MG capsule Take 100 mg by mouth in the morning and 100 mg at noon and 100 mg in the evening. 01/28/2023 Active Anoro Ellipta 62.5-25 MCG/ACT aerosol powder Inhale 1 puff 1 (one) time each day 03/04/2023 Active Farxiga 10 MG tabletIndicatio ns:Chronic kidney disease stage 3B (HCC) TAKE ONE TABLET BY MOUTH EVERY MORNING 30 tablet 2 04/16/2025 Active amLODIPine (NORVASC) 5 MG tablet Take 5 mg by mouth 1 (one) time each day 05/02/2025 Active Calcium Ascorbate 500 MG tablet Take 500 mg by mouth every other day 03/01/2025 Active meclizine (ANTIVERT) 12.5 MG tablet Take 12.5 mg by mouth 3 (three) times a day if needed 11/30/2023 Active FLUoxetine (PROzac) 10 MG capsule Take 10 mg by mouth 1 (one) time each day 05/07/2025 Active FeroSul 325 (65 Fe) MG tablet Take 325 mg by mouth every other day 05/02/2025 Active ergocalciferol 1.25 MG (69250 UT) capsule Take 50,000 Units by mouth 1 (one) time per week 04/19/2025 Active Docusate Sodium (DSS) 100 MG capsule Take 100 mg by mouth if needed 03/01/2025 Active Fluticasone-Ume clidin-Vilant 100-62.5-25 MCG/ACT aerosol powder Inhale 1 puff 1 (one) time each day Active Active Problems Problem Noted Date Diagnosed Date Chronic kidney disease stage 3B 10/23/2024 Acute bronchitis 04/03/2024 History of coronary artery bypass grafting 04/27 History of aortic valve replacement 04/20/2023 Moderate chronic obstructive pulmonary disease 0 01/07/2023 Tobacco dependence in remission 01/07/2023 Encounters Date Type Department Care Team Description 05/10/2025 2:00 PM CDT Office Visit [facility] [address] [place] [address] Bhakti Pineda NP Chronic kidney disease stage 3B (HCC) (Primary Dx) 05/09/2025 Documentation Only [facility] [address] [place] [address] Fatuma Shoemaker MA 05/09/2025 Documentation Only [facility], [facility] [address] [place] [address] Fatuma Shoemaker MA 04/30/2025 Telephone [facility], [facility] [address] [place] [address] Sabi Kathleen MD 04/14/2025 Refill [facility], [facility] [address] [place] [address] Sabi Kathleen MD Chronic kidney disease stage 3B (HCC) from Last 3 Months Family History Medical History Relation Comments Heart disease Brother Thyroid disease Mother Thyroid disease Sister Relation Status Comments Brother Father Mother Alive Sister Social History Tobacco Use Types Packs/Day Years Used Date Smoking Tobacco: Former Cigarettes Q uit: 2019 Passive Smoke Exposure: Past Tobacco Cessation:Counseling Given: Not Answered Alcohol Use Standard Drinks/Week Comments Never 0 (1 standard drink = 0.6 oz pur e alcohol) Comments No Sex and Gender Information Value Date Recorded Sex Assigned at Not on file Legal Sex Female 10:44 AM EST Gender Identity Not on file Sexual Orientation Not on file Last Filed Vital Signs Vital Sign Reading Time Taken Comments Blood Pressure 102/66 05/10/2025 1:44 PM CDT Pulse 99 05/10/2025 1:44 PM CDT Temperature - - Respiratory Rate - - Oxygen Saturation 93% 05/10/2025 1:44 PM CDT Inhaled Oxygen Concentration - - Weight 68.9 kg (152 lb) 05/10/2025 1:44 PM CDT Height 157.5 cm (5' 2 ) 05/10/2025 1:44 PM CDT Body Mass Index 27.8 05/10/2025 1:44 PM CDT Plan of Treatment Upcoming Encounters Date Type Department Care Team (Late st Contact Info) Description 11/06/2025 1:30 PM CDT Office Visit [facility], [facility] [address] [place] [address] Bhakti Pineda NP [address] [place] [address] Health Maintenance Due Date Last Done Comments Breast Cancer Screening 1965 Hepatitis B Vaccine (1 of 3 - 19+ 3-dose series) 01/21 Pneumococcal Vaccine: 50+ Years (1 of 2 - PCV) 986 Colorectal Cancer Screening: Annual FOBT 01/22/2016 Colorectal Cancer Screening: Colonoscopy 01/22/2016 Colorectal Cancer Screening: Sigmoidoscopy 01/22/2016 Influenza Vaccine (#1) 2025 Diabetes: Hemoglobin A1C 04/12/2025 Diabetes: Ophthalmology Exam 04/12/2025 Diabetes: Pedal Pulse Checked 04/12/2025 Diabetes: Sensory Foot Exam 04/12/2025 Diabetes: Visual Foot Exam 04/12/2025 Procedures Procedure Name Priority Date/Time Associated Diagnosis Comments CBC (INCLUDES DIFF/PLT) (EXTERNAL LAB ENTRY) Routine 04/30/2025 1:25 PM CDT VITAMIN D, 25-OH (D2,D3) (EXTERNAL LAB ENTRY) Routine 04/30/2025 1:25 PM CDT RENAL FUNCTION PANEL (EXTERNAL LAB ENTRY) Routine 04/30/2025 1:25 PM CDT ALBUMIN, URINE, RANDOM Routine 04/30/2025 1:25 PM CDT PTH 1-84 BIO-INTACT (EXTERNAL RESULT ENTRY) Routine 04/30/2025 1:25 PM CDT from Last 3 Months Results * PARATHYROID HORMONE 1-84 BIO-INTACT (04/30/2025 1:25 PM CDT) PTH, 1-84 Bio-Intact 72.8 04/30/2025 1:25 PM CDT us Sabi Kathleen MD LAB BLOOD ORDERABLES Final Re sult * Vitamin D, 25-OH (D2,D3) (External Lab) (04/30/2025 1:25 PM CDT) Pathologist [facility] Vitamin D, 25-OH, Total 80 ng/mL Blood 04/30/2025 1:25 PM CDT us Sabi Kathleen MD LAB BLOOD ORDERABLES Final Re sult * CBC (Includes Diff/Plt) (External Lab) (04/30/2025 1:25 PM CDT) [facility] WBC 5.34 K/uL Red Blood Cell Count 5.47 Hemoglobin 13.80 g/dL Hematocrit 44.7 % MCV 81.7 MCH 25.2 MCHC 30.9 RDW 20.9 Platelet Count 180 Absolute Neutrophils 3.22 Absolute Lymphocytes 1.7 Absolute Monocytes 0.3 Absolute Eosinophils 0.1 Absolute Basophils 0.0 Neutrophils 60.2 K/uL Lymphocytes 32.2 Monocytes 4.7 Eosinophils 2.1 Basophils 0.6 Blood 04/30/2025 1:25 PM CDT us Sabi Ktahleen MD LAB BLOOD ORDERABLES Final Re sult * Renal Function Panel (External Lab) (04/30/2025 1:25 PM CDT) [facility] Glucose 82 mg/dL BUN 9 mg/dL eGFR 51.0 Sodium 139 mEq/L Potassium 3.6 mEq/L Chloride 106 Carbon Dioxide 24 mmol/L Calcium 9.0 mg/dL Phosphorus, Serum 2.6 mg/dL Albumin (Blood) 4.0 g/dL Creatinine 1.1 mg/dL Anion Gap 12.6 Blood 04/30/2025 1:25 PM CDT us Sabi Kathleen MD LAB BLOOD ORDERABLES Final Re sult * Albumin, urine, random (04/30/2025 1:25 PM CDT) [facility] Microalbumin Urine Random 2 ug/dL Creatinine, Urine 271 mg/dL Microalb/Creat Ratio, Ur 7 mg/dL Urine Urine specimen obtained by clean catch procedure / Unknown 04/30/2025 1:25 PM CDT Arnaldo Fatuma Shoemaker, MA - 05/09/2025 8:15 AM CDT [facility] [address] [place] [address] Dr. Nilam Dempsey, Device Sales Consultant us Sabi Kathleen MD LAB URINE ORDERABLES Final Re sult from Last 3 Months Insurance Medicaid [place] ([id number]) Care Teams Laundromat Worker Relationship Specialty Start Date End Date Nickolas Bolanos DO [address] [address] PCP - General Family Medicine 05/10/25
[2025-06-01 16:00] VITALS: BP 82/58; PULSE 121; RESP 22; TEMP 36.4; O2SAT 92
--- NOTE | 2025-06-01 16:03 | XRR_ITS ---
PROCEDURE INFORMATION: Exam: XR Chest Exam date and time: 06/01/2025 4:44 PM Age: 60 years old Clinical indication: Shortness of breath; Additional info: SOB TECHNIQUE: Imaging protocol: Radiologic exam of the chest. Views: 1 view. COMPARISON: CR XR chest 2V* [id number] 06/01/2025 3:15 PM FINDINGS: Lungs: Persistent infiltrate, inferolateral left lower lobe. This shows improvement as compared to the prior study. Pleural spaces: Unremarkable. No pleural effusion. No pneumothorax. Heart/Mediastinum: Post CABG changes. Bones/joints: Sternotomy hardware. XR/XR chest 1V portable [id number] IMPRESSION: Interval improvement in left lower lobe pneumonia. Continued follow-up is suggested to document resolution.
--- NOTE | 2025-06-01 16:31 | ED_ITS ---
HPI - URI/Sore Throat 2 General: Chief Complaint: Upper Respiratory Infection Stated Complaint: Fever / aches / dizzy Time Seen by Provider: 06/01/25 16:23 Source: patient Mode of arrival: ambulatory Limitations: no limitations History of Present Illness: 60-year-old female states that she has b een having shortness of breath today with a fever 101 she also been feeling weak. States she is seen at urgent care diagnosed with a left lower lobe pneumonia along with flu was sent here she is having hypotension. She states she does feel weak and lightheaded when she stands. She denies any vomiting or diarrhea denies any pain. States she did start amlodipine 2 weeks ago Related Data Home Medications ?Medication ?Instructions ?Recorded ?Confirmed nebulizer 05/03/25 06/01/25 Previous Rx's ?Medication ?Instructions ?Recorded albuterol sulfate 0.63 mg/3 mL 0.63 mg (3 mL) inhalati on Q4H PRN 04/01/22 solution for nebulization shortness of breath or wheez ing #90 mL aspirin 81 mg tablet,delayed 81 mg PO DAILY #90 tabs 1 08/20/21 release dapagliflozin propanediol 10 mg 10 mg PO QAM 30 days # 30 tabs 11/16/22 tablet (Farxiga) meclizine 12.5 mg tablet 12.5 mg PO TID PRN dizziness #14 11/30/23 tabs nitroglycerin 0.4 mg sublingual 0.4 mg sublingual Q5M PRN chest 09/06/24 tablet pain #20 tabs warfarin 4 mg tablet See Rx Instructions .Route 0 11/08/24 .COMPLEX #90 tabs atorvastatin 40 mg tablet See Rx Instructions .Route 0 11/20/24 .COMPLEX #90 tabs levothyroxine 100 mcg tablet 100 mcg PO DAILY #90 tabs 01/04/25 warfarin 3 mg tablet 3 mg PO DAILY #90 tabs 01/05 omeprazole 20 mg capsule,delayed See Rx Instructions . Route 02/22/25 release .COMPLEX #240 caps ergocalciferol (vitamin D2) 1,250 See Rx Instructions .Route 02/23/25 mcg (50,000 unit) capsule .COMPLEX #12 caps ascorbate calcium (vitamin C) 500 500 mg PO Q48H #60 t abs 03/01/25 mg tablet ferrous sulfate 325 mg (65 mg 325 mg PO Q48H #60 tabs 03/01/25 iron) tablet (FeroSul) albuterol sulfate 90 mcg/actuation See Rx Instructions .Route 03/12/25 aerosol inhaler (Ventolin HFA) .COMPLEX #8.5 grams gabapentin 100 mg capsule See Rx Instructions .Route 0 04/19/25 .COMPLEX #600 caps metoprolol tartrate 50 mg tablet See Rx Instructions . Route 04/19/25 .COMPLEX #660 tabs temazepam 30 mg capsule 30 mg PO .qhs PRN sleep #30 caps 05/01/25 amlodipine 5 mg tablet 5 mg PO DAILY #90 tabs 05/02 fluticasone fur. 100 mcg-umeclid 1 inh inhalation Q24H #28 ea 05/03/25 62.5 mcg-vilant 25 mcg inhalat.powder (Trelegy Ellipta) fluoxetine 10 mg capsule See Rx Instructions .Route 0 05/07/25 .COMPLEX #30 caps tirzepatide (weight loss) 7.5 See Rx Instructions .Rou te 05/23/25 mg/0.5 mL subcutaneous pen .COMPLEX #2 mL injector (Zepbound) [id number] 3.5 4 drp otic (ear) Q8H #10 mL 05/24/25 mg-10,000 unit/mL-1 % ear drops,susp docusate sodium 100 mg capsule See Rx Instructions .Ro mayra 05/28/25 .COMPLEX #60 caps Allergies Allergy/AdvReac Type Severity Reaction Status Date / Time amitriptyline Allergy Unknown Verified 06/01/25 16:03 Iodinated Contrast Media Allergy ALGY-Rash Verified 06/01/25 16:03 Review of Systems 2 Resp: Reports: dyspnea and non-productive cough PFSH ED 2 PFSH: Medical History Dyspareunia 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 Thrombocytopenia Surgical History S/P aortic valve replacement (~2018) [place] S/P CABG x 3 Status post hip surgery (~12/2020) S/P tonsillectomy S/P thyroidectomy S/P cataract extraction History of bone marrow biopsy Status post biopsy of kidney benign Family History Mother Thyroid disease Sister Thyroid disease x2 Grandmother Thyroid disease Maternal Aunt Brother CAD (coronary artery disease) Grandfather Lung cancer smoker Social History Smoking and tobacco/nicotine status: never used tobacco/nicotine Quit status (tobacco/nicotine): has quit using Former quit date comment: PPD x 30 yrs; quit 12/2019 Second hand smoke exposure: No Alcohol intake: never Substance/Drug Use: never Caregiver/support person: Yes Lives independently: Yes Household members: children Marital status: Number of children: 4 Number of grandchildren: 6 service: No Current occupational status: unemployed Do you think of yourself as: Straight/Heterosexual Current gender identity: Female Myrna/Alevism: Religion Special myrna needs: Yes Details: last rights as a Religion if deemed near Agree to transfusion: Yes Female Reproductive History: Spontaneous abortions: No Physical Exam 2 Const: COMMON NORMALS: patient oriented x3 GENERAL APPEARANCE: ill appearing HENMT: COMMON NORMALS: normocephalic and atraumatic HEAD & SCALP: n ormocephalic and atraumatic Eye: COMMON NORMALS: Equal, round and reactive pupils present and EOMs intact bilaterally PUPIL: Yes Equal, round and reactive pupils present Neck/C-Spine: COMMON NORMALS: full ROM and supple Chest: COMMONS NORMALS: normal inspection of the chest Resp: COMMON NORMALS: normal respiratory effort, No retractions and No use of accessory muscles AUSCULTATION: crackles Laterality: left Cardio: COMMON NORMALS: regular rate, regular rhythm and No murmurs present (Cardio) RATE: regular rate RHYTHM: regular rhythm GI: COMMON NORMALS: Normal to inspection, nondistended, normoactive bowel sounds present, Soft to palpation, non-tender and no masses PALPATION: Yes Soft to palpation Extremity: COMMON NORMALS: normal to inspection and full ROM Neuro: COMMON NORMALS: patient oriented x3, moves all extremities and no focal motor deficits Psych: COMMON NORMALS: mental status grossly normal, Normal thought process present and cooperative THOUGHT PROCESS: Normal thought process present Skin: COMMON NORMALS: no rashes or lesions noted and no wounds GENERAL SKIN EXAM: no rashes or lesions noted Course 2 Vital Signs: Vital signs: Vital Signs Temperature 97.5 F L 06/01/25 16:00 Pulse Rate 106 H 06/01/25 17:05 Respiratory Rate 20 H 06/01/25 17:05 Blood Pressure 102/59 06/01/25 17:05 Pulse Oximetry 93 06/01/25 17:05 Oxygen Delivery Me thod Room Air 06/01/25 17:05 MDM - URI/Sore Throat Medical Decision Making Patient presents with cough fever along with shortness of breath. Differential includes pneumonia, pulm embolism. Patient has no signs of pulmonary embolism here she has no chest pain that severe she has a left lower lobe pneumonia noted on x-ray along with an elevated white count. She is also initially hypotensive and tachycardic here consistent with sepsis. Her blood pressures improved after sepsis bolus. EKG showed sinus tach heart rate [address] elevation QRS 97 QTc 403. She is not requiring oxygen here. Did start IV antibiotics and got blood cultures her lactate here is normal I spoke to Dr. Beltran and will admit at this time Medical Records I reviewed the patient's medical records. Lab Data I reviewed the patient's lab results. 06/01/25 16:29 06/01/25 16:29 Radiology Impressions Chest X-Ray 06/01/25 16:03 IMPRESSION: Interval improvement in left lower lobe pneumonia. Continued follow-up is suggested to document resolution. Laboratory Results WBC 23.01 10^3/uL (3.29-11.43) H 06/01/25 16: RBC 6.00 10^6/uL (3.85-5.65) H 06/01/25 16: Hgb 15.60 g/dL (11.27-16.99) 06/01/25 16: Hct 49.3 % (36-47) H 06/01/25 16: MCV 82.2 fl (85-98) L 06/01/25 16: MCH 26.0 pg (27-33) L 06/01/25 16: MCHC 31.6 g/dL (30-55) 06/01/25 16: RDW 20.6 % (12.1-15.1) H 06/01/25 16: Plt Count 219 10^3/cmm (157-399) 06/01/25 16: MPV Not Reportable 06/01/25 16: Neut % (Auto) 86.2 % 06/01/25 16: Lymph % (Auto) 7.3 % 06/01/25 16: [place] % (Auto) 5.1 % 06/01/25: Eos % (Auto) 0.0 % 06/01/25 16: Baso % (Auto) 0.3 % 06/01/25: Neut # (Auto) 19.83 10^3/uL (1.8-7.7) H 06/01/25 16: Lymph # (Auto) 1.7 10^3/uL (0.8-4.8) 06/01/25 16: [place] # (Auto) 1.2 10^3/uL (0.2-0.9) H 06/01/25 16: Eos # (Auto) 0.0 10^3/uL (0.0-0.8) 06/01/25 16: Baso # (Auto) 0.1 10^3/uL (0.0-0.1) 06/01/25 16: Nucleated RBC % (auto) 0 % 06/01/25 16: Nucleated RBCs # 0.0 /100WBC 06/01/25 16: Sodium 136 mmol/L (136-145) 06/01/25 16: Potassium 4.1 mmol/L (3.5-5.1) 06/01/25 16: Chloride 102 mmol/L (98-107) 06/01/25 16: Carbon Dioxide 20 mmol/L (22-29) L 06/01/25 16: Anion Gap 18.1 (5-19) 06/01/25 16: BUN 18 mg/dL (6-20) 06/01/25 16:29 Creatinine 1.7 mg/dL (0.5-0.9) H 06/01/25 16:29 GFR Calculation 30.9 mL/min (90-130) L 06/01/25 16:29 Glucose 107 mg/dL (65-115) 06/01/25 16:29 Calculated Osmolality 284 mOsm/kg (285-295) L 06/01/25 16:29 Lactic Acid 1.8 mmol/L (0.5-2.2) 06/01/25 16:29 Calcium 9.1 mg/dL (8.5-10.5) 06/01/25 16:29 Total Bilirubin 0.6 mg/dL (0.15-1.2) 06/01/25 16:29 AST 20 U/L (0-32) 06/01/25 16:29 ALT 9 U/L (0-33) 06/01/25 16:29 Alkaline Phosphatase 120 U/L (35-105) H 06/01/25 16:29 NT-Pro-B Natriuret Pep 1067 pg/mL (0-125) H 06/01/25 16:29 Total Protein 6.6 g/dL (6.6-8.7) 06/01/25 16:29 Albumin 3.8 g/dL (3.5-5.2) 06/01/25 16:29 Globulin 2.8 g/dL (1.3-4.6) 06/01/25 16:29 All radiology interpretation(s) finalized by discharge EKG Data EKG 1: I personally reviewed and interpreted this EKG as follows: EKG interpretation date: 06/01/25 EKG interpretation time: 16:45 Interpretation: sinus tach hr [address] elevation qrs 97 qtc 403 Critical Care Time 2 Critical Care Time: Critical Care Time: Yes Total Critical Care Time: 40 Attestation: The high probability of a clinically significant, sudden or life threatening deterioration of the patient's resp system(s) required my full and direct attention, intervention and personal management. The critical care time is as shown. This time is in addition to time spent performing any reported procedures but includes the following: [x] Data and vital sign review and interpretation [x] Patient assessment, examination and intervention [x] Documentation [x] Medication orders and management Discharge Plan Discharge Patient Disposition: Admitted As Inpatient Clinical Impression: Pneumonia, Sepsis Condition: Stable Coding Level of Care Code ED Analytics Specialist for Iban Salazar
[2025-06-01] MEDS: cefTRIAXone 1,000 mg SDV 1000 MG IVP ×2 (16:39→20:03)
--- NOTE | 2025-06-01 16:45 | ECG_ITS ---
[facility] Test Date: 2025-06-01 Pat Name: Danielle Nix Department: Room: Gender: Female Athletic Monitor: : 1965 Requested By: Nitin Montero Order Number: [id number] Reading MD: NEGRO VALERO Measurements Intervals [place] Rate: 109 P: 46 GA: 187 QRS: 29 QRSD: 97 T: 101 QT: 339 QTc: 457 Interpretive Statements SINUS TACHYCARDIA POSSIBLE LEFT ATRIAL ENLARGEMENT [-0.1mV P-WAVE IN V1/V2] MODERATE T-WAVE ABNORMALITY, CONSIDER LATERAL ISCHEMIA [-0.1+ mV T-WAVE IN I/aVL/V5/V6] Compared to ECG 02/14/2021 13:23:33 T-wave abnormality now present Possible ischemia now present Sinus rhythm no longer present Electronically Signed On 06-03-2025 22:30:28 CDT by NEGRO VALERO [email or web address]
[2025-06-01 16:54] LABS: Hematocrit 49.3 % (36-47); Hemoglobin 15.60 g/dL (11.27-16.99); Mean Corpuscular HGB Conc 31.6 g/dL (30-55); Mean Corpuscular Hemoglobin 26.0 pg (27-33); Mean Corpuscular Volume 82.2 fl (85-98); Nucleated Red Blood Cells % 0 %; Platelet Count 219 10^3/cmm (157-399); Red Blood Count 6.00 10^6/uL (3.85-5.65); White Blood Count 23.01 10^3/uL (3.29-11.43)
[2025-06-01 17:05] VITALS: BP 102/59; PULSE 106; RESP 20; O2SAT 93
[2025-06-01 17:12] LABS: Alanine Aminotransferase 9 U/L (0-33); Albumin Level 3.8 g/dL (3.5-5.2); Alkaline Phosphatase 120 U/L (35-105); Anion Gap 18.1 (5-19); Aspartate Amino Transferase 20 U/L (0-32); Blood Urea Nitrogen 18 mg/dL (6-20); Calcium 9.1 mg/dL (8.5-10.5); Carbon Dioxide 20 mmol/L (22-29); Chloride 102 mmol/L (98-107); Creatinine Clr Calc Pharmacy 32.0987; Globulin 2.8 g/dL (1.3-4.6); Glucose 107 mg/dL (65-115); NT Pro B Type Natriuretic Pept 1067 pg/mL (0-125); Osmolality Calculated 284 mOsm/kg (285-295); Potassium 4.1 mmol/L (3.5-5.1); Sodium 136 mmol/L (136-145); Total Protein 6.6 g/dL (6.6-8.7)
[2025-06-01 17:35] LABS: Lactic Sepsis W/Reflex 1.8 mmol/L (0.5-2.2)
[2025-06-01 18:07] LABS: INR 2.72 (0.8-1.2); Prothrombin Time 30.40 SECONDS (12.1-14.9)
[2025-06-01 18:35] VITALS: BP 117/65; PULSE 102; O2SAT 94
--- NOTE | 2025-06-01 19:09 | P.HP_ITS ---
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 There was no chest pain chest pressure abdominal pain nausea vomiting or diarrhea. No lower leg swellings no dizziness syncope. He quit smoking 5 years ago. No other drug abuse or alcohol abuse. Rest of review of system is unremarkable Review of Systems 2 General: Reports: 10 or more systems reviewed and unremarkable except in HPI and below Medications/Allergies Home Medications ?Medication ?Instructions ?Recorded ?Confirmed ?Last Taken ?Type albuterol sulfate 0.63 mg/3 mL 0.63 mg (3 mL) inhalati on Q4H PRN 04/01/22 06/01/25 Unknown Rx solution for nebulization shortness of breath or wheez ing #90 mL aspirin 81 mg tablet,delayed 81 mg PO DAILY #90 tabs 1 08/20/21 06/01/25 Unknown Rx release dapagliflozin propanediol 10 mg 10 mg PO QAM 30 days # 30 tabs 11/16/22 06/01/25 Unknown Rx tablet (Farxiga) meclizine 12.5 mg tablet 12.5 mg PO TID PRN dizziness #14 11/30/23 06/01/25 Unknown Rx tabs nitroglycerin 0.4 mg sublingual 0.4 mg sublingual Q5M PRN chest 09/06/24 06/01/25 Unknown Rx tablet pain #20 tabs warfarin 4 mg tablet See Rx Instructions .Route 0 11/08/24 06/01/25 Unknown Rx .COMPLEX #90 tabs atorvastatin 40 mg tablet See Rx Instructions .Route 0 11/20/24 06/01/25 Unknown Rx .COMPLEX #90 tabs levothyroxine 100 mcg tablet 100 mcg PO DAILY #90 tabs 01/04/25 06/01/25 Unknown Rx warfarin 3 mg tablet 3 mg PO DAILY #90 tabs 01/0506/01/25 Unknown Rx omeprazole 20 mg capsule,delayed See Rx Instructions . Route 02/22/25 06/01/25 Unknown Rx release .COMPLEX #240 caps ergocalciferol (vitamin D2) 1,250 See Rx Instructions .Route 02/23/25 06/01/25 Unknown Rx mcg (50,000 unit) capsule .COMPLEX #12 caps ascorbate calcium (vitamin C) 500 500 mg PO Q48H #60 t abs 03/01/25 06/01/25 Unknown Rx mg tablet ferrous sulfate 325 mg (65 mg 325 mg PO Q48H #60 tabs 03/01/25 06/01/25 Unknown Rx iron) tablet (FeroSul) albuterol sulfate 90 mcg/actuation See Rx Instructions .Route 03/12/25 06/01/25 Unknown Rx aerosol inhaler (Ventolin HFA) .COMPLEX #8.5 grams gabapentin 100 mg capsule See Rx Instructions .Route 0 04/19/25 06/01/25 Unknown Rx .COMPLEX #600 caps metoprolol tartrate 50 mg tablet See Rx Instructions . Route 04/19/25 06/01/25 Unknown Rx .COMPLEX #660 tabs temazepam 30 mg capsule 30 mg PO .qhs PRN sleep #30 caps 05/01/25 06/01/25 Unknown Rx amlodipine 5 mg tablet 5 mg PO DAILY #90 tabs 05/0206/01/25 Unknown Rx fluticasone fur. 100 mcg-umeclid 1 inh inhalation Q24H #28 ea 05/03/25 06/01/25 Unknown Rx 62.5 mcg-vilant 25 mcg inhalat.powder (Trelegy Ellipta) nebulizer 05/03/25 06/01/25 Unknown H istory fluoxetine 10 mg capsule See Rx Instructions .Route 0 05/07/25 06/01/25 Unknown Rx .COMPLEX #30 caps tirzepatide (weight loss) 7.5 See Rx Instructions .Rou te 05/23/25 06/01/25 Unknown Rx mg/0.5 mL subcutaneous pen .COMPLEX #2 mL injector (Zepbound) [id number]-zllkpmcof-uymlobuim 3.5 4 drp otic (ear) Q8H #10 mL 05/24/25 06/01/25 Unknown Rx mg-10,000 unit/mL-1 % ear drops,susp docusate sodium 100 mg capsule See Rx Instructions .Ro enterprise 05/28/25 06/01/25 Unknown Rx .COMPLEX #60 caps Allergies Allergy/AdvReac Type Severity Reaction Status Date / Time amitriptyline Allergy Unknown Verified 06/01/25 16:03 Iodinated Contrast Media Allergy ALGY-Rash Verified 06/01/25 16:03 PFSH Acute 2 PFSH: Medical History (Updated 06/01/25 @ 19:15 by Domingo Beltran MD) Dyspareunia 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 Thrombocytopenia Surgical History S/P aortic valve replacement (~2018) [place] S/P CABG x 3 Status post hip surgery (~12/2020) S/P tonsillectomy S/P thyroidectomy S/P cataract extraction History of bone marrow biopsy Status post biopsy of kidney benign Family History Mother Thyroid disease Sister Thyroid disease x2 Grandmother Thyroid disease Maternal Aunt Brother CAD (coronary artery disease) Grandfather Lung cancer smoker Social History Smoking and tobacco/nicotine status: never used tobacco/nicotine Quit status (tobacco/nicotine): has quit using Former quit date comment: PPD x 30 yrs; quit 12/2019 Second hand smoke exposure: No Alcohol intake: never Substance/Drug Use: never Caregiver/support person: Yes Lives independently: Yes Household members: children Marital status: Number of children: 4 Number of grandchildren: 6 service: No Current occupational status: unemployed Do you think of yourself as: Straight/Heterosexual Current gender identity: Female Myrna/Advent: Adventism Special myrna needs: Yes Details: last rights as a Adventism if deemed near Agree to transfusion: Yes Female Reproductive History: Spontaneous abortions: No Vitals/I&O/Wt Last Vital Signs Temp 97.5 F L 06/01/25 16:00 Pulse 102 H 06/01/25 18:35 Resp 20 H 06/01/25 17:05 BP 117/65 06/01/25 18:35 Pulse Ox 94 06/01/25 18:35 O2 Del Method Room Air 06/01/25 18:35 Weight last 48 hrs Weight 65.771 kg Physical Exam 2 Narrative: General: Alert and oriented, lying comfortably without any distress HEENT: Normocephalic, atraumatic, grossly unremarkable exam Cardio: normal rate rhythm, normal S1-S2 without any murmurs, rubs, or gallops and JVD normal Respiratory: Mild coarse crackles heard at the lower left zone without wheezes or stridor, bilateral equal air entry appreciated. GI: Abdomen soft, nontender, nondistended, normoactive bowel sounds present all 4 quadrants, Neuro: intact cranial nerves motor and sensory and cerebellar/coordination function without any focal neurological deficit Behavior: Appropriate and cooperative Extremities: Adequate palpable pulses, no edema or cyanosis observed. Data 06/01/25 16:29 06/01/25 16:29 Micro: Microbiology 06/01/25 16:35 Blood Culture - Preliminary Blood SPECIMEN COLLECTED 06/01/25 16:30 Blood Culture - Preliminary Blood SPECIMEN COLLECTED A&P Assessment and plan 1. Sepsis: Severe sepsis Secondary to pneumonia found to have influenza type a positive. Fluid responsive Lactate 1.8 Blood cultures to follow Patient having adequate capillary refill and MAP above 65 Continue hydration Ceftriaxone azithromycin Oseltamavir 30 mg daily as per GFR continue Monitor hemodynamics 2. Influenza A: Continue oseltamavir 30 mg daily as per GFR for flu treatment for 3 to 5 days 3. Pneumonia: As mentioned above 4. Lumbar disc disease with radiculopathy: Adequate analgesia to provide after reconciliation of medication 5. Hypertension: Hold antihypertensive medication at the moment considering patient presented with hypotension and, currently on fluid resuscitation 6. 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 CAD (coronary artery disease): Continue on aspirin and atorvastatin after home medication reconciliation Patient also on dapagliflozin, to hold since the patient blood pressure is low 8. Mixed hyperlipidemia: Continue on atorvastatin at home medication reconciliation 9. H/O mechanical aortic valve replacement: Patient confirmed that she is taking warfarin 3 mg, and to continue 10. Pulmonary emphysema, unspecified emphysema type: DuoNebs as needed 11. Hypothyroidism: Patient taking levothyroxine 100 mcg daily and to resume after reconfirmation and reconciliation 12. Insomnia: Home medications to reconcile for insomnia and to continue accordingly 13. CANDIS (generalized anxiety disorder): Patient on fluoxetine, temazepam as needed and to continue after reconciliation 14. Chronic kidney disease, stage 3b: Monitor renal functions Intake and output Avoid nephrotoxic medications Renally adjust medications to continue 15. GERD without esophagitis: PPI daily PDMP PDMP Reviewed: Not Reviewed Attestations 2 Medical Necessity Statement*: Patient will stay overnight for the management of sepsis secondary to flu virus leading to pneumonia and rest of the optimization of other comorbidities Time Spent in Patient Care: 16 - 35 minutes (>than 50% of time sp ent in counselling and/or direct pt care on unit) . Other Attestations: Patient condition has been discussed at length with the patient/family, I have independently reviewed the chart labs imaging/diagnostics/EKG. the goals of care and code status with the patient/family/NOK/legal internet sales representative, and documented accordingly. The patient/family has been informed about the current condition and further plan of care. Agreed with the plan of care and understood without any language barrier. Every effort was made to ensure accuracy of contact clerk. Any obvious errors or omissions should be clarified with the author of the document. 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
[2025-06-01 19:24] LABS: Magnesium 2.0 mg/dL (1.7-2.3)
[2025-06-01 20:04] VITALS: BP 112/70; PULSE 100; RESP 27; O2SAT 92
[2025-06-01 20:19] VITALS: BP 112/70; PULSE 99; O2SAT 92
[2025-06-01 20:21] VITALS: BMI 27.6
[2025-06-01 21:00] VITALS: BP 94/55; PULSE 98; RESP 17; TEMP 36.9; O2SAT 92
[2025-06-02] VITALS: BP 92/59; PULSE 83; RESP 15; TEMP 36.7; O2SAT 96
[2025-06-02 04:00] VITALS: BP 108/65; PULSE 77; RESP 16; TEMP 36.4; O2SAT 92
[2025-06-02] MEDS: pantoprazole 40 mg SDV IVP (04:39)
[2025-06-02 04:50] VITALS: BMI 28.3
[2025-06-02 04:58] LABS: Hematocrit 36.5 % (36-47); Hemoglobin 11.60 g/dL (11.27-16.99); Mean Corpuscular HGB Conc 31.8 g/dL (30-55); Mean Corpuscular Hemoglobin 26.8 pg (27-33); Mean Corpuscular Volume 84.3 fl (85-98); Nucleated Red Blood Cells % 0 %; Platelet Count 128 10^3/cmm (157-399); Red Blood Count 4.33 10^6/uL (3.85-5.65); White Blood Count 12.34 10^3/uL (3.29-11.43)
[2025-06-02 05:15] LABS: Alanine Aminotransferase < 5 U/L (0-33); Albumin Level 2.6 g/dL (3.5-5.2); Alkaline Phosphatase 87 U/L (35-105); Anion Gap 14.4 (5-19); Aspartate Amino Transferase 11 U/L (0-32); Blood Urea Nitrogen 15 mg/dL (6-20); Calcium 7.0 mg/dL (8.5-10.5); Carbon Dioxide 18 mmol/L (22-29); Chloride 114 mmol/L (98-107); Creatinine Clr Calc Pharmacy 51.1559; Globulin 2.2 g/dL (1.3-4.6); Glucose 78 mg/dL (65-115); Osmolality Calculated 294 mOsm/kg (285-295); Potassium 4.4 mmol/L (3.5-5.1); Sodium 142 mmol/L (136-145); Total Protein 4.8 g/dL (6.6-8.7)
[2025-06-02 05:28] LABS: Slide Review Slide Review Perform
[2025-06-02 07:29] VITALS: BP 103/66; PULSE 85; RESP 15; TEMP 36.6; O2SAT 90
--- NOTE | 2025-06-02 10:42 | P.DS_ITS ---
Discharge Providers Date of Admission: 06/01/25 18:12 Date of Discharge: June 02, 2025 Attending Provider at Admission: Domingo Beltran MD Attending Provider at Discharge: Domingo Beltran MD Primary Care Provider: Nickolas Bolanos DO Diagnoses at Discharge Discharge Diagnosis 1. Sepsis: 2. Influenza A: 3. Pneumonia: 4. Lumbar disc disease with radiculopathy: 5. 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 Coronary artery disease involving [place] coronary artery of [place] heart without angina pectoris: 8. Mixed hyperlipidemia: 9. H/O mechanical aortic valve replacement: 10. Pulmonary emphysema, unspecified emphysema type: 11. Hypothyroidism, unspecified type: 12. Insomnia, unspecified type: 13. CANDIS (generalized anxiety disorder): 14. Chronic kidney disease, stage 3b: 15. 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 There was no chest pain chest pressure abdominal pain nausea vomiting or diarrhea. No lower leg swellings no dizziness syncope. He quit smoking 5 years ago. No other drug abuse or alcohol abuse. Rest of review of system is unremarkable Hospital Course Hospital Course Patient was found to have flu virus and also pneumonia involving the left lower lobe. She was seen sepsis with hypotension that responded to fluids. After adequate hydration and commencement of antibiotics to cover any bacterial infection with ceftriaxone and azithromycin and oseltamavir based on patient's eGFR the patient had massive improvement with increase in her WBC counts. The patient has been off oxygen and did not report any shortness of breath. The patient has been afebrile since the time of admission. Blood cultures till date negative. Patient kidney function and electrolytes were monitored and corrected accordingly. Mild hypocalcemia and low phosphorous was also corrected. Patient had mild thrombocytopenia but no easy bruising that could also be secondary to flu/sepsis.. Patient to be discharged on antibiotics for any superseded bacterial infection and antiviral for flu virus. Adequate referrals provided along with postdischarge PCP follow-up and CBC to be repeated postdischarge before follow-up with the PCP. Patient condition has been discussed at length with the patient/family, I have independently reviewed the chart labs imaging/diagnostics/EKG. the goals of care and code status with the patient/family/NOK/legal sales representative cash registers, and documented accordingly. The patient/family has been informed about the current condition and further plan of care. Agreed with the plan of care and understood without any language barrier. Every effort was made to ensure accuracy of private detective. Any obvious errors or omissions should be clarified with the author of the document. Physical Exam Narrative: General: Alert and oriented, lying comfortably without any distress HEENT: Normocephalic, atraumatic, grossly unremarkable exam Cardio: normal rate rhythm, normal S1-S2 without any murmurs, rubs, or gallops and JVD normal Respiratory: normal vascular breathing with rhonchi on the left lower zone on auscultation without any wheezes, stridor, GI: Abdomen soft, nontender, nondistended, normoactive bowel sounds present all 4 quadrants, Neuro: intact cranial nerves motor and sensory and cerebellar/coordination function without any focal neurological deficit Behavior: Appropriate and cooperative Extremities: Adequate palpable pulses, mild trace edema Skin: grossly unremarkable exam Discharge Data Studies Completed and Pending Completed Studies During Hospitalization Category Date Time Status XR chest 1V portable [id number] Stat Exams 06/01/25 16:03 Completed Pending at discharge Category Date Time Status Blood Culture Stat Lab 06/01/25 16:35 Results Radiology Impressions Chest X-Ray 06/01/25 16:03 IMPRESSION: Interval improvement in left lower lobe pneumonia. Continued follow-up is suggested to document resolution. Laboratory Results WBC 12.34 10^3/uL (3.29-11.43) H 06/02/25 04:39 RBC 4.33 10^6/uL (3.85-5.65) 06/02/25 04:39 Hgb 11.60 g/dL (11.27-16.99) 06/02/25 04:39 Hct 36.5 % (36-47) 06/02/25 04:39 MCV 84.3 fl (85-98) L 06/02/25 04:39 MCH 26.8 pg (27-33) L 06/02/25 04:39 MCHC 31.8 g/dL (30-55) 06/02/25 04:39 RDW 20.1 % (12.1-15.1) H 06/02/25 04:39 Plt Count 128 10^3/cmm (157-399) L D 06/02/25 04:39 MPV Not Reportable 06/02/25 04:39 Neut % (Auto) 75.1 % 06/02/25 04:39 Lymph % (Auto) 18.7 % 06/02/25 04:39 [place] % (Auto) 5.3 % 06/02/25 04:39 Eos % (Auto) 0.2 % 06/02/25 04:39 Baso % (Auto) 0.2 % 06/02/25 04:39 Neut # (Auto) 9.27 10^3/uL (1.8-7.7) H 06/02/25 04:39 Lymph # (Auto) 2.3 10^3/uL (0.8-4.8) 06/02/25 04:39 [place] # (Auto) 0.7 10^3/uL (0.2-0.9) 06/02/25 04:39 Eos # (Auto) 0.0 10^3/uL (0.0-0.8) 06/02/25 04:39 Baso # (Auto) 0.0 10^3/uL (0.0-0.1) 06/02/25 04:39 Nucleated RBC % (auto) 0 % 06/02/25 04:39 Nucleated RBCs # 0.0 /100WBC 06/02/25 04:39 PT 30.40 SECONDS (12.1-14.9) H 06/01/25 16:29 INR 2.72 (0.8-1.2) H 06/01/25 16:29 Sodium 142 mmol/L (136-145) 06/02/25 04:39 Potassium 4.4 mmol/L (3.5-5.1) 06/02/25 04:39 Chloride 114 mmol/L (98-107) H 06/02/25 04:39 Carbon Dioxide 18 mmol/L (22-29) L 06/02/25 04:39 Anion Gap 14.4 (5-19) 06/02/25 04:39 BUN 15 mg/dL (6-20) 06/02/25 04:39 Creatinine 1.1 mg/dL (0.5-0.9) H 06/02/25 04:39 GFR Calculation 51.0 mL/min (90-130) L 06/02/25 04:39 Glucose 78 mg/dL (65-115) 06/02/25 04:39 Calculated Osmolality 294 mOsm/kg (285-295) 06/02/25 04:39 Lactic Acid 1.8 mmol/L (0.5-2.2) 06/01/25 16:29 Calcium 7.0 mg/dL (8.5-10.5) L 06/02/25 04:39 Phosphorus 2.3 mg/dL (2.5-4.5) L 06/01/25 16:29 Magnesium 2.0 mg/dL (1.7-2.3) 06/01/25 16:29 Total Bilirubin 0.3 mg/dL (0.15-1.2) 06/02/25 04:39 AST 11 U/L (0-32) 06/02/25 04:39 ALT < 5 U/L (0-33) 06/02/25 04:39 Alkaline Phosphatase 87 U/L (35-105) 06/02/25 04:39 NT-Pro-B Natriuret Pep 1067 pg/mL (0-125) H 06/01/25 16:29 Total Protein 4.8 g/dL (6.6-8.7) L D 06/02/25 04:39 Albumin 2.6 g/dL (3.5-5.2) L 06/02/25 04:39 Globulin 2.2 g/dL (1.3-4.6) 06/02/25 04:39 Vitals Last Vital Signs Temp 97.9 F 06/02/25 07:29 Pulse 85 06/02/25 07:29 Resp 15 06/02/25 07:29 BP 103/66 06/02/25 07:29 Pulse Ox 90 06/02/25 07:29 O2 Del Method Room Air 06/02/25 07:29 Discharge Plan Discharge Patient Disposition: Home Condition: Stable Prescriptions: New levofloxacin 750 mg tablet 750 mg PO DAILY 6 Days Qty: 6 0RF oseltamivir [Tamiflu] 30 mg Capsule 30 mg PO DAILY 3 Days Qty: 3 0RF Continued albuterol sulfate 0.63 mg/3 mL solution for nebulization 0.63 mg inhalation Q4H PRN (Reason: shortness of breath or wheezing) Qty: 90 11RF ferrous sulfate [FeroSul] 325 mg (65 mg iron) tablet 325 mg PO Q48H Qty: 60 3RF Rx Instructions: Take with 500mg of Vitamin C or with a glass of orange juice. ascorbate calcium (vitamin C) 500 mg tablet 500 mg PO Q48H Qty: 60 3RF ahcrqrxr-dgyzoygzf-DT 3.5-10,000-1 mg/mL-unit/mL-% drops,suspension 4 drp otic (ear) Q8H Qty: 10 0RF meclizine 12.5 mg tablet 12.5 mg PO TID PRN (Reason: dizziness) Qty: 14 0RF amlodipine 5 mg tablet 5 mg PO DAILY Qty: 90 3RF levothyroxine 100 mcg tablet 100 mcg PO DAILY Qty: 90 1RF Trelegy Ellipta 100-62.5-25 mcg blister with device 1 inh inhalation Q24H Qty: 28 6RF Farxiga 10 mg tablet 10 mg PO QAM 30 Days Qty: 30 3RF nitroglycerin 0.4 mg tablet, sublingual 0.4 mg sublingual Q5M PRN (Reason: chest pain) Qty: 20 3RF Rx Instructions: do not exceed 3 doses per episode warfarin 4 mg tablet See Rx Instructions .ROUTE .COMPLEX Qty: 90 3RF Protocol: Dose Management Condition: Wednesday Dose/Route: 3 mg Instruction: 1 x 3 mg tablet Condition: Wednesday Dose/Route: 3 mg Instruction: 1 x 3 mg tablet Condition: Wednesday Dose/Route: 3 mg Instruction: 1 x 3 mg tablet Condition: Wednesday Dose/Route: 3 mg Instruction: 1 x 3 mg tablet Condition: Dose/Route: 3 mg Instruction: 1 x 3 mg tablet Condition: Wednesday Dose/Route: 3 mg Instruction: 1 x 3 mg tablet Condition: Wednesday Dose/Route: 3 mg Instruction: 1 x 3 mg tablet Protocol Text: Adjustment Start Date: 05/17/25 INR Value: 18.6 Seconds INR Date: 05/07/25 Recheck Date: 05/21/25 Dose Instruction: TAKE ONE TABLET BY MOUTH DAILY Rx Instructions: TAKE ONE TABLET BY MOUTH DAILY atorvastatin 40 mg tablet See Rx Instructions .ROUTE .COMPLEX Qty: 90 3RF Dose Instruction: TAKE ONE TABLET BY MOUTH DAILY Rx Instructions: TAKE ONE TABLET BY MOUTH DAILY warfarin 3 mg tablet 3 mg PO DAILY Qty: 90 3RF Protocol: Dose Management Condition: Wednesday Dose/Route: 3 mg Instruction: 1 x 3 mg tablet Condition: Wednesday Dose/Route: 3 mg Instruction: 1 x 3 mg tablet Condition: Wednesday Dose/Route: 3 mg Instruction: 1 x 3 mg tablet Condition: Wednesday Dose/Route: 3 mg Instruction: 1 x 3 mg tablet Condition: Dose/Route: 3 mg Instruction: 1 x 3 mg tablet Condition: Wednesday Dose/Route: 3 mg Instruction: 1 x 3 mg tablet Condition: Wednesday Dose/Route: 3 mg Instruction: 1 x 3 mg tablet Protocol Text: Adjustment Start Date: 05/17/25 INR Value: 18.6 Seconds INR Date: 05/07/25 Recheck Date: 05/21/25 omeprazole 20 mg capsule,delayed release(DR/EC) See Rx Instructions .ROUTE .COMPLEX Qty: 240 0RF Dose Instruction: TAKE ONE CAPSULE BY MOUTH DAILY Rx Instructions: TAKE ONE CAPSULE BY MOUTH DAILY ergocalciferol (vitamin D2) 1,250 mcg (50,000 unit) capsule See Rx Instructions .ROUTE .COMPLEX Qty: 12 0RF Dose Instruction: TAKE ONE CAPSULE BY MOUTH WEEKLY Rx Instructions: TAKE ONE CAPSULE BY MOUTH WEEKLY albuterol sulfate [Ventolin HFA] 90 mcg/actuation HFA aerosol inhaler See Rx Instructions .ROUTE .COMPLEX Qty: 8.5 4RF Dose Instruction: INHALE TWO PUFFS BY MOUTH FOUR TIMES DAILY NEEDED SHORTNESS OF BREATH OR FOR WHEEZING Rx Instructions: INHALE TWO PUFFS BY MOUTH FOUR TIMES DAILY NEEDED SHORTNESS OF BREATH OR FOR WHEEZING metoprolol tartrate 50 mg tablet See Rx Instructions .ROUTE .COMPLEX Qty: 660 0RF Dose Instruction: TAKE ONE-HALF (one-half) tablet BY MOUTH TWICE DAILY Rx Instructions: TAKE ONE-HALF (one-half) tablet BY MOUTH TWICE DAILY gabapentin 100 mg capsule See Rx Instructions .ROUTE .COMPLEX Qty: 600 0RF Dose Instruction: TAKE ONE CAPSULE BY MOUTH IN THE MORNING, ONE IN THE AFTERNOON, AND TWO AT BEDTIME Rx Instructions: TAKE ONE CAPSULE BY MOUTH IN THE MORNING, ONE IN THE AFTERNOON, AND TWO AT BEDTIME temazepam 30 mg capsule 30 mg PO .qhs PRN (Reason: sleep) Qty: 30 2RF fluoxetine 10 mg capsule See Rx Instructions .ROUTE .COMPLEX Qty: 30 2RF Dose Instruction: TAKE ONE CAPSULE BY MOUTH DAILY Rx Instructions: TAKE ONE CAPSULE BY MOUTH DAILY Zepbound 7.5 mg/0.5 mL pen injector See Rx Instructions .ROUTE .COMPLEX Qty: 2 2RF Dose Instruction: inject 7.5mg subcutaneously WEEKLY Rx Instructions: inject 7.5mg subcutaneously WEEKLY docusate sodium 100 mg capsule See Rx Instructions .ROUTE .COMPLEX Qty: 60 2RF Dose Instruction: TAKE ONE CAPSULE BY MOUTH TWICE DAILY Rx Instructions: TAKE ONE CAPSULE BY MOUTH TWICE DAILY aspirin 81 mg Tablet,Delayed Release (Dr/Ec) 81 mg PO DAILY Qty: 90 3RF No Action (DME) nebulizer 0 .Route .MEDSUPPLY Discharge Order = DC NOW: Discharge Order (Routine); Ordered 06/02/25 Ordered By: Domingo Beltran Other Ambulatory Orders: Complete Blood Count w/Auto (Routine) Timeframe: 3 Days Location: Determined by Patient Ordered By: Domingo Beltran Referrals: Nickolas Bolanos DO [Primary Care Provider, Family Practice] - 4-7 days Referral Note: post discharge follow up and to check cbc with platelets Discharge Diet: Advance as tolerated and Usual diet Discharge Activity: Resume usual activity and Increase activity as tolerated Patient Instructions: Opioid Safety, Patient Portal & Sebastian Instructions Activity Restrictions/Additional Instructions: hold antiHTN medication amlodipine for 1-2 days with adequate oral intake, regular BP check up and if BP is on the higher side above 140s systolic then take amlodipine for BP. otherwise hold it untill seen by the PCP Discharge Attestations Time Spent in Discharge Care*: greater than 30 min Specific Discharge Activities: educating patient, educating and/or supporting family/caregiver, discussing with pcp/other providers, discussing with immigration case worker/social workers/dc planners, documenting/other paperwork and evaluating patient/reviewing data Status at Discharge: Cognitive status at discharge: cognitively intact , Behavioral status at discharge: cooperative , Functional status at discharge: independent ambulation , Overall status at discharge: patient is progressing back to baseline Quality Metrics Clinical Quality Measures [ No reported AMI, CVA or VTE this stay] Coding Level of Care Code 42807 Diagnoses Sepsis A41.9 Sepsis acute organ dysfunction status: unspecified Sepsis type: sepsis due to unspecified organism Influenza A J10.1 Pneumonia J18.9 Laterality: left Lung location: lower lobe of lung Pneumonia type: due to unspecified organism Lumbar disc disease with radiculopathy M51.16 Hypertension I10 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 transplanted heart: [place] heart Associated angina: without angina Mixed hyperlipidemia E78.2 Hyperlipidemia type: mixed hyperlipidemia H/O mechanical aortic valve replacement Z95.2 Pulmonary emphysema, unspecified emphysema type J43.9 COPD type: emphysema Emphysema type: unspecified Hypothyroidism, unspecified type E03.9 Hypothyroidism type: unspecified Insomnia, unspecified type G47.00 Insomnia type: unspecified CANDIS (generalized anxiety disorder) F41.1 Chronic kidney disease, stage 3b N18.32 GERD without esophagitis K21.9
[2025-06-02] MEDS: calcium gluconate 0.9% NaCL 1 GM/50 ML PREMIX IV (11:02)
[2025-06-02 11:40] VITALS: BP 103/66; PULSE 85; RESP 16; TEMP 36.6; O2SAT 90
== END 2025-06-02 11:54 | disposition home or self-care (01) | DRG 871 ==
LOC: ER 17:52 → ER IP 18:12 → MEDSURG 19:53
PROVIDERS: Admitting Provider Student in an Organized Health Care Education/Training Program; Emergency Provider Emergency Medicine; PCP Family Medicine; Visit Provider Student in an Organized Health Care Education/Training Program
DX: A41.89 Other specified sepsis (principal); J10.00 Influenza due to other identified influenza virus with unspecified type of pneumonia; G37.9 Demyelinating disease of central nervous system, unspecified; I25.10 Atherosclerotic heart disease of native coronary artery without angina pectoris; E78.2 Mixed hyperlipidemia; Z95.2 Presence of prosthetic heart valve; J43.9 Emphysema, unspecified; E03.9 Hypothyroidism, unspecified; G47.00 Insomnia, unspecified; F41.1 Generalized anxiety disorder; I12.9 Hypertensive chronic kidney disease with stage 1 through stage 4 chronic kidney disease, or unspecified chronic kidney disease; N18.32 Chronic kidney disease, stage 3b; K21.9 Gastro-esophageal reflux disease without esophagitis; Z79.01 Long term (current) use of anticoagulants; Z95.1 Presence of aortocoronary bypass graft; Z87.891 Personal history of nicotine dependence; D69.59 Other secondary thrombocytopenia; Z79.890 Hormone replacement therapy; Z79.899 Other long term (current) drug therapy; Z79.51 Long term (current) use of inhaled steroids; Z79.82 Long term (current) use of aspirin; E55.9 Vitamin D deficiency, unspecified; M85.80 Other specified disorders of bone density and structure, unspecified site; Z98.49 Cataract extraction status, unspecified eye; Z80.1 Family history of malignant neoplasm of trachea, bronchus and lung; Z82.49 Family history of ischemic heart disease and other diseases of the circulatory system; M51.16 Intervertebral disc disorders with radiculopathy, lumbar region; Z86.69 Personal history of other diseases of the nervous system and sense organs
CPT/HCPCS: 36415; 71045; 80053; 83605; 83735; 83880; 84100; 85025; 85610; 87040; 87400; 87420; 87426; 93005; 96365; 96375; 99285; J0456; J0612; J0696; J2470; J3490; J7030; J7050; J9999

== ENCOUNTER 2025-06-14 13:04 | Outpatient (CLI) | payer MEDICAID, SELFPAY ==
--- NOTE | 2025-06-14 13:00 | MR_ITS ---
WS: [email or web address] MRI RIGHT HIP WITHOUT CONTRAST. COMPARISON: 11/20/2020 MRI. Hip radiograph 02/13/2025. Multiplanar, multisequence imaging is performed without contrast. History: RIGHT hip pain since replacement 2020. There is significant metallic artifact associated with the RIGHT hip arthroplasty. Distortion of the images. There is very little detail at the RIGHT hip joint that can be gathered from this study due to artifact. The distal tip appears appropriate positioned in the mid femoral diaphysis. Mild narrowing of the LEFT hip joint. No acute fractures are identified. No joint effusions. Urinary bladder is normal. Midline uterus. MR/MR hip RT wo con* [id number] IMPRESSION: 1. Nondiagnostic evaluation of the RIGHT hip due to prior arthroplasty. 2. For further evaluation of the RIGHT hip arthroplasty consider three-phase b one scan imaging.
== END 2025-06-14 13:05 | disposition home or self-care (01) ==
LOC: RAD 13:04
PROVIDERS: PCP Family Medicine; Visit Provider Anesthesiology Pain Medicine
DX: M25.551 Pain in right hip (principal); Z96.641 Presence of right artificial hip joint
CPT/HCPCS: 73721

== ENCOUNTER 2025-06-25 10:52 | Outpatient (CLI) | payer MEDICAID, SELFPAY ==
--- NOTE | 2025-06-25 10:56 | MM_ITS ---
WS: [email or web address] BILATERAL SCREENING DIGITAL TOMOSYNTHESIS MAMMOGRAM WITH CAD HISTORY: SCREENING COMPARISON: 05/14/2015, 08/16/2008 Bilateral CC and MLO views with tomosynthesis and synthetic mammography submitted. Computer aided detection analyzed. Breast composition: There are scattered areas of fibroglandular density. No suspicious masses, microcalcifications or architectural distortion. Focal asymmetries in the central LEFT breast are improving over time. There are benign calcifications in each breast. MM/MM scr tomosynthesis [id number] IMPRESSION: BI-RADS: 2 - Benign. FOLLOW UP: 1 Year Follow-up
== END 2025-06-25 10:53 | disposition home or self-care (01) ==
LOC: RAD 10:53
PROVIDERS: PCP Family Medicine; Visit Provider Family Medicine
DX: Z12.31 Encounter for screening mammogram for malignant neoplasm of breast (principal); R92.323 Mammographic fibroglandular density, bilateral breasts; N64.89 Other specified disorders of breast; R92.1 Mammographic calcification found on diagnostic imaging of breast
CPT/HCPCS: 77063; 77067

== ENCOUNTER 2025-07-02 12:25 | Outpatient (CLI) | payer MEDICAID, SELFPAY ==
[2025-07-02 13:29] LABS: INR 2.54 (0.83-1.21)
== END 2025-07-02 12:26 | disposition home or self-care (01) ==
LOC: LAB 12:26
PROVIDERS: PCP Family Medicine; Visit Provider Internal Medicine Cardiovascular Disease
DX: Z95.2 Presence of prosthetic heart valve (principal)
CPT/HCPCS: 85610

== ENCOUNTER → 2025-07-09 10:08 | Outpatient (BNVA) | payer MEDICAID, SELFPAY | PROVIDERS: PCP Family Medicine; Visit Provider Anesthesiology Pain Medicine | DX: M51.16 Intervertebral disc disorders with radiculopathy, lumbar region (principal); G89.29 Other chronic pain | CPT/HCPCS: 99214 ==

== ENCOUNTER → 2025-07-12 14:21 | Outpatient (BNVA) | payer MEDICAID, SELFPAY | PROVIDERS: PCP Family Medicine; Visit Provider Orthopaedic Surgery | DX: M48.061 Spinal stenosis, lumbar region without neurogenic claudication (principal); G89.29 Other chronic pain | CPT/HCPCS: 99214 ==

== ENCOUNTER 2025-07-17 10:58 | Outpatient (CLI) | payer MEDICAID, SELFPAY ==
[2025-07-17 11:11] VITALS: PULSE 94; RESP 18; O2SAT 93
== END 2025-07-17 10:59 | disposition home or self-care (01) ==
LOC: RT 10:59
PROVIDERS: PCP Family Medicine; Visit Provider Internal Medicine
DX: J43.9 Emphysema, unspecified (principal); J44.89 Other specified chronic obstructive pulmonary disease; R91.1 Solitary pulmonary nodule; Z95.2 Presence of prosthetic heart valve; Z79.01 Long term (current) use of anticoagulants; Z87.891 Personal history of nicotine dependence; R06.00 Dyspnea, unspecified
CPT/HCPCS: 94060; 94729; 99214; J7613

== ENCOUNTER 2025-07-23 07:54 | Outpatient (CLI) | payer MEDICAID, SELFPAY ==
--- NOTE | 2025-07-23 08:00 | NM_ITS ---
WS: [email or web address] NUCLEAR MEDICINE BONE SCAN 3 PHASE Radiopharmaceutical: 24.1 Tc-99m MDP mCi IV Injection site: Antecubital Postinjection imaging delay: 2 hr CLINICAL INFORMATION: Hip Pain pain. Replaced 2020. COMPARISON: 2022 FINDINGS: Prior postoperative changes right JAYCE. Normal blood flow and blood pool images. No asymmetric blood flow or blood pool activity about the RIGHT JAYCE. Normal delayed bone scan images. No evidence of hardware loosening or infection right hip. Degenerative type uptake both AC joints. Mild thoracolumbar curve. Patchy serpiginous uptake in the distal femurs and proximal tibia suspicious for bone infarcts similar to the prior study. Kidneys: Normal. Other findings: None. NM/NM bone 3 phase [id number] IMPRESSION: 1. No evidence right JAYCE loosening or infection 2. 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
== END 2025-07-23 07:55 | disposition home or self-care (01) ==
PROVIDERS: PCP Family Medicine; Visit Provider Orthopaedic Surgery
DX: M25.551 Pain in right hip (principal); Z96.641 Presence of right artificial hip joint
CPT/HCPCS: 78315; A9561

== ENCOUNTER → 2025-07-24 13:40 | Outpatient (BNVA) | payer MEDICAID, SELFPAY | PROVIDERS: PCP Family Medicine; Visit Provider Orthopaedic Surgery | DX: Z01.818 Encounter for other preprocedural examination (principal); M51.16 Intervertebral disc disorders with radiculopathy, lumbar region; M48.062 Spinal stenosis, lumbar region with neurogenic claudication | CPT/HCPCS: 36415; 80053; 81001; 85025; 87086; 99214 ==

== ENCOUNTER 2025-07-25 14:55 | Outpatient (CLI) | payer MEDICAID, SELFPAY ==
--- NOTE | 2025-07-25 15:30 | CT_ITS ---
WS: [email or web address] LDCT LUNG CANCER SCREENING TECHNIQUE: Noncontrast CT of the chest with coronal and sagittal reformatted images. CLINICAL INFORMATION: lung screen COMPARISON: 2022 DLP: 47.80 mGy.cm DIvol: Mean CTDIvol: 0.80 (mGy) All CT scans at [facility] use at least one of these dose optimization techniques: automated exposure control; mA and/or kV adjustment per patient size (includes targeted exams where dose is matched to clinical indication); or iterative reconstruction. FINDINGS: Mild chronic emphysematous changes. Stable 5 mm noncalcified nodule superior segment RIGHT lower lobe. No new suspicious pulmonary parenchymal abnormalities. Small RIGHT perifissural nodule. Subsegmental atelectasis LEFT lower lobe. Sternotomy. CABG. Aortic calcification. Dense coronary calcification. Cholelithiasis. Glands are normal. Small esophageal hernia. CT/CT lung screening [id number] IMPRESSION: LUNG-RADS: 2-Benign Appearance or Behavior FOLLOW UP: 12 Month: Continue annual screening with LDCT
== END 2025-07-25 14:56 | disposition home or self-care (01) ==
LOC: RAD 14:55
PROVIDERS: PCP Family Medicine; Visit Provider Internal Medicine
DX: Z12.2 Encounter for screening for malignant neoplasm of respiratory organs (principal); Z87.891 Personal history of nicotine dependence; J43.8 Other emphysema; J98.11 Atelectasis; I25.10 Atherosclerotic heart disease of native coronary artery without angina pectoris; R91.8 Other nonspecific abnormal finding of lung field
CPT/HCPCS: 71271

== ENCOUNTER 2025-07-31 12:54 | Outpatient (CLI) | payer MEDICAID, SELFPAY ==
[2025-07-31 13:29] LABS: INR 2.65 (0.83-1.21)
== END 2025-07-31 12:55 | disposition home or self-care (01) ==
PROVIDERS: Absent Provider Internal Medicine Cardiovascular Disease; PCP Family Medicine; Visit Provider Internal Medicine Cardiovascular Disease
DX: Z95.2 Presence of prosthetic heart valve (principal)
CPT/HCPCS: 85610

== ENCOUNTER → 2025-08-07 14:34 | Outpatient (BNVA) | payer MEDICAID, SELFPAY | PROVIDERS: PCP Family Medicine; Visit Provider Family Medicine | DX: R30.0 Dysuria (principal) | CPT/HCPCS: 81000 ==